=== PATIENT | female | born 1990 | race American Indian/Alaskan Native ===

== ENCOUNTER 2016-05-20 17:50 | Emergency (ER) | payer SELFPAY | END 2016-05-20 21:06 | disposition left against medical advice (07) | LOC: ED 17:50 | DX: R07.9 Chest pain, unspecified (principal); Z53.21 Procedure and treatment not carried out due to patient leaving prior to being seen by health care provider ==

== ENCOUNTER 2016-05-24 02:07 | Emergency (ER) | payer OTHER ==
[2016-05-24 02:32] VITALS: BP 125/80
[2016-05-24 03:04] LABS: Basophils % (Auto) 0.3 % (0.0-1.8); Eosinophils % (Auto) 2.2 % (0.0-4.3); Hematocrit 30.2 % (30.3-42.9); Hemoglobin 9.6 gm/dl (10.1-14.3); Mean Corpuscular HGB Conc 32 % (30-34); Mean Corpuscular Volume 79 fl (79-97); Platelet Count 247 K/mm3 (140-440); Red Blood Count 3.83 M/mm3 (3.65-5.03); Red Cell Distribution Width 14.8 % (13.2-15.2); White Blood Count 6.8 K/mm3 (4.5-11.0)
[2016-05-24 03:10] LABS: Mean Corpuscular Hemoglobin 25 pg (28-32)
[2016-05-24 03:28] LABS: Blood Urea Nitrogen 11 mg/dL (7-17); Carbon Dioxide 25 mmol/L (22-30); Chloride 102.6 mmol/L (98-107); Glucose 98 mg/dL (65-100); Potassium 3.5 mmol/L (3.6-5.0); Sodium 138 mmol/L (137-145)
[2016-05-24 04:00] LABS: Anion Gap 14 mmol/L
--- NOTE | 2016-05-28 15:29 | ED Elopement Review ---
ED Pt Elopement review - Results review Lab results: Laboratory Tests 05/24/16 05/24/16 02:54 02:54 WBC 6.8 RBC 3.83 Hgb 9.6 L Hct 30.2 L MCV 79 MCH 25 L MCHC 32 RDW 14.8 Plt Count 247 Lymph % (Auto) 30.6 Cotton % (Auto) 7.3 Eos % (Auto) 2.2 Baso % (Auto) 0.3 Lymph # 2.1 Cotton # 0.5 Eos # 0.2 Baso # 0.0 Seg Neutrophils % 59.6 Seg Neutrophils # 4.0 Sodium 138 Potassium 3.5 L Chloride 102.6 Carbon Dioxide 25 Anion Gap 14 BUN 11 Creatinine 0.5 L Estimated GFR > 60 BUN/Creatinine Ratio 22.00 Glucose 98 Calcium 9.0 Troponin T < 0.010 - Call Back decision Pt Call Back Decision: No action required
== END 2016-05-24 09:20 | disposition left against medical advice (07) ==
LOC: ED 02:07
DX: R07.89 Other chest pain (principal); Z53.21 Procedure and treatment not carried out due to patient leaving prior to being seen by health care provider
CPT/HCPCS: 36415; 80048; 84484; 85025; 93005; 93010

== ENCOUNTER 2016-06-08 02:55 | Emergency (ER) | payer SELFPAY ==
[2016-06-08 03:09] VITALS: BP 110/68
[2016-06-08 04:20] LABS: Basophils % (Auto) 0.3 % (0.0-1.8); Eosinophils % (Auto) 1.3 % (0.0-4.3); Hematocrit 31.9 % (30.3-42.9); Mean Corpuscular HGB Conc 31 % (30-34); Mean Corpuscular Volume 80 fl (79-97); Platelet Count 222 K/mm3 (140-440); Red Blood Count 4.01 M/mm3 (3.65-5.03); Red Cell Distribution Width 16.3 % (13.2-15.2); White Blood Count 7.3 K/mm3 (4.5-11.0)
[2016-06-08 04:26] LABS: Anion Gap 19 mmol/L; Blood Urea Nitrogen 14 mg/dL (7-17); Calcium 8.8 mg/dL (8.4-10.2); Carbon Dioxide 19 mmol/L (22-30); Chloride 102.3 mmol/L (98-107); Glucose 102 mg/dL (65-100); Mean Corpuscular Hemoglobin 25 pg (28-32); Sodium 136 mmol/L (137-145)
--- NOTE | 2016-06-09 21:41 | ED Elopement Review ---
ED Pt Elopement review - Results review Lab results: Laboratory Tests 06/08/16 06/08/16 03:51 03:51 WBC 7.3 RBC 4.01 Hgb 10.0 L Hct 31.9 MCV 80 MCH 25 L MCHC 31 RDW 16.3 H Plt Count 222 Lymph % (Auto) 40.6 H Alfalfa % (Auto) 5.7 Eos % (Auto) 1.3 Baso % (Auto) 0.3 Lymph # 3.0 Alfalfa # 0.4 Eos # 0.1 Baso # 0.0 Seg Neutrophils % 52.1 Seg Neutrophils # 3.8 Sodium 136 L Potassium 4.0 Chloride 102.3 Carbon Dioxide 19 L Anion Gap 19 BUN 14 Creatinine 0.5 L Estimated GFR > 60 BUN/Creatinine Ratio 28.00 Glucose 102 H Calcium 8.8 Troponin T < 0.010 - Call Back decision Pt Call Back Decision: No action required
== END 2016-06-08 04:00 | disposition left against medical advice (07) ==
LOC: ED 02:55
DX: R07.89 Other chest pain (principal); Z53.21 Procedure and treatment not carried out due to patient leaving prior to being seen by health care provider
CPT/HCPCS: 36415; 80048; 84484; 85025; 93005; 93010

== ENCOUNTER 2016-10-24 13:05 | Outpatient (CLI) | payer OTHER ==
[2016-10-24] MEDS ORDERED: LACTATED RINGERS 500 ML IV ONE (13:48)
[2016-10-24 14:18] VITALS: BP 118/60
[2016-10-24 14:33] LABS: Bilirubin,Urine NEG (Negative); Blood,Urine NEG (Negative); Ketones,Urine NEG (Negative); Leukocyte Esterase,Urine NEG (Negative); Mucus,Urine FEW /HPF; Nitrite,Urine NEG (Negative); Protein,Urine <15 mg/dL mg/dL (Negative); Urobilinogen,Urine < 2.0 mg/dL (<2.0)
== END 2016-10-24 16:15 | disposition home or self-care (01) ==
LOC: TRG 13:05
PROVIDERS: ATTEND Obstetrics & Gynecology
DX: O47.02 False labor before 37 completed weeks of gestation, second trimester (principal); Z3A.23 23 weeks gestation of pregnancy
CPT/HCPCS: 59025; 81001

== ENCOUNTER 2017-03-12 23:44 | Emergency (ER) | payer SELFPAY ==
[2017-03-12 23:57] VITALS: BP 129/90
[2017-03-13 00:53] LABS: Basophils % (Auto) 0.3 % (0.0-1.8); Eosinophils % (Auto) 2.5 % (0.0-4.3); Hemoglobin 9.4 gm/dl (10.1-14.3); Mean Corpuscular HGB Conc 31 % (30-34); Mean Corpuscular Hemoglobin 25 pg (28-32); Mean Corpuscular Volume 81 fl (79-97); Platelet Count 248 K/mm3 (140-440); Red Blood Count 3.72 M/mm3 (3.65-5.03); Red Cell Distribution Width 18.1 % (13.2-15.2); White Blood Count 4.6 K/mm3 (4.5-11.0)
[2017-03-13 01:01] LABS: Anion Gap 14 mmol/L; BUN/Creatinine Ratio 17; Blood Urea Nitrogen 10 mg/dL (7-17); Calcium 8.8 mg/dL (8.4-10.2); Carbon Dioxide 26 mmol/L (22-30); Chloride 104.4 mmol/L (98-107); Glucose 102 mg/dL (65-100); Potassium 4.2 mmol/L (3.6-5.0); Sodium 140 mmol/L (137-145)
[2017-03-13 01:05] LABS: Bilirubin,Urine NEG (Negative); Blood,Urine MOD (Negative); Ketones,Urine NEG (Negative); Leukocyte Esterase,Urine MOD (Negative); Nitrite,Urine NEG (Negative); Protein,Urine <15 mg/dL mg/dL (Negative); Urobilinogen,Urine < 2.0 mg/dL (<2.0)
== END 2017-03-13 03:29 | disposition left against medical advice (07) ==
LOC: ED 03-13 00:49
DX: R07.9 Chest pain, unspecified (principal); Z53.21 Procedure and treatment not carried out due to patient leaving prior to being seen by health care provider
CPT/HCPCS: 36415; 80048; 81001; 84484; 84703; 85025; 93005; 93010

== ENCOUNTER 2017-05-13 10:58 | Emergency (ER) | payer SELFPAY ==
[2017-05-13 11:52] VITALS: BP 110/72
[2017-05-13 12:37] LABS: BUN/Creatinine Ratio 20; Blood Urea Nitrogen 10 mg/dL (7-17); Calcium 8.9 mg/dL (8.4-10.2); Hemolysis Index 1
[2017-05-13 12:42] LABS: Basophils % (Auto) 0.3 % (0.0-1.8); Eosinophils # (Auto) 0.1 K/mm3 (0.0-0.4); Eosinophils % (Auto) 1.2 % (0.0-4.3); Hematocrit 33.8 % (30.3-42.9); Hemoglobin 10.3 gm/dl (10.1-14.3); Lymphocytes # (Auto) 2.3 K/mm3 (1.2-5.4); Lymphocytes % (Auto) 44.7 % (13.4-35.0); Mean Corpuscular HGB Conc 31 % (30-34); Mean Corpuscular Hemoglobin 24 pg (28-32); Mean Corpuscular Volume 77 fl (79-97); Monocytes # (Auto) 0.4 K/mm3 (0.0-0.8); Monocytes % (Auto) 7.1 % (0.0-7.3); Platelet Count 265 K/mm3 (140-440); Red Cell Distribution Width 17.4 % (13.2-15.2)
--- NOTE | 2017-05-13 13:06 | XRay Report ---
ROUTINE CHEST, TWO VIEWS: HISTORY: Short of breath. The trachea, heart, mediastinal contour, lung snowden and bony thorax are unremarkable. IMPRESSION: Unremarkable chest x-ray.
== END 2017-05-13 14:26 | disposition left against medical advice (07) ==
LOC: ED 10:58
DX: R07.9 Chest pain, unspecified (principal); R06.02 Shortness of breath; Z53.21 Procedure and treatment not carried out due to patient leaving prior to being seen by health care provider
CPT/HCPCS: 36415; 71046; 80048; 84484; 85025; 93005; 93010

== ENCOUNTER 2017-07-29 11:28 | Emergency (ER) | payer SELFPAY ==
[2017-07-29 12:01] VITALS: BP 123/71
[2017-07-29] MEDS ORDERED: ASPIRIN PO ONE (12:12)
[2017-07-29 12:47] LABS: Basophils % (Auto) 0.5 % (0.0-1.8); Eosinophils # (Auto) 0.1 K/mm3 (0.0-0.4); Eosinophils % (Auto) 1.2 % (0.0-4.3); Hematocrit 32.2 % (30.3-42.9); Hemoglobin 10.4 gm/dl (10.1-14.3); Lymphocytes # (Auto) 2.2 K/mm3 (1.2-5.4); Lymphocytes % (Auto) 43.4 % (13.4-35.0); Mean Corpuscular HGB Conc 32 % (30-34); Mean Corpuscular Hemoglobin 25 pg (28-32); Mean Corpuscular Volume 76 fl (79-97); Monocytes # (Auto) 0.4 K/mm3 (0.0-0.8); Monocytes % (Auto) 7.6 % (0.0-7.3); Platelet Count 239 K/mm3 (140-440); Red Blood Count 4.22 M/mm3 (3.65-5.03); Red Cell Distribution Width 17.9 % (13.2-15.2)
[2017-07-29 12:56] LABS: BUN/Creatinine Ratio 22; Blood Urea Nitrogen 11 mg/dL (7-17); Calcium 8.4 mg/dL (8.4-10.2); Hemolysis Index 30
== END 2017-07-29 17:00 | disposition left against medical advice (07) ==
LOC: ED 11:28
DX: R07.9 Chest pain, unspecified (principal); Z53.21 Procedure and treatment not carried out due to patient leaving prior to being seen by health care provider
CPT/HCPCS: 36415; 80048; 84484; 85025; 93005; 93010

== ENCOUNTER 2018-06-13 19:20 | Emergency (ER) | payer MEDICAID, OTHER ==
--- NOTE | 2018-06-13 19:51 | Emergency Department Report ---
Blank Doc - Documentation Documentation: This is a 27-year-old female that presents with chest pain with headache. Den ies any SOB. This initial assessment diagnostic orders/clinical plan/treatment(s) is/are subject to change based on patient's health status, clinical progression and re- assessment by fellow clinical providers in the ED. Further treatment and workup at subsequent clinical providers discretion. Patient/guardians urged not to elope from ED s their condition may be serious if not clinically assessed and managed. Initial orders include: 1-Patient sent to MAIN ED for further evaluation and treatment 2- Labs 3- UA 4- EKG 5- CXR
[2018-06-13 19:55] VITALS: BP 124/71
[2018-06-13 20:14] LABS: Basophils % (Auto) 0.2 % (0.0-1.8); Eosinophils # (Auto) 0.1 K/mm3 (0.0-0.4); Eosinophils % (Auto) 1.3 % (0.0-4.3); Hematocrit 32.8 % (30.3-42.9); Hemoglobin 10.8 gm/dl (10.1-14.3); Lymphocytes % (Auto) 48.5 % (13.4-35.0); Mean Corpuscular HGB Conc 33 % (30-34); Mean Corpuscular Volume 83 fl (79-97); Monocytes # (Auto) 0.2 K/mm3 (0.0-0.8); Monocytes % (Auto) 5.6 % (0.0-7.3); Platelet Count 198 K/mm3 (140-440); Red Blood Count 3.94 M/mm3 (3.65-5.03); Red Cell Distribution Width 16.3 % (13.2-15.2)
[2018-06-13 20:24] LABS: INR 1.02 (0.87-1.13)
[2018-06-13 20:25] LABS: Partial Thromboplastin Time 32.9 Sec. (24.2-36.6)
[2018-06-13 20:38] LABS: Alanine Aminotransferase 10 units/L (7-56); Albumin 4.2 g/dL (3.9-5); BUN/Creatinine Ratio 14; Blood Urea Nitrogen 7 mg/dL (7-17); Calcium 8.8 mg/dL (8.4-10.2); Hemolysis Index 0
== END 2018-06-13 21:43 | disposition left against medical advice (07) ==
LOC: ED 19:20
DX: R07.89 Other chest pain (principal); Z53.21 Procedure and treatment not carried out due to patient leaving prior to being seen by health care provider
CPT/HCPCS: 36415; 80053; 84484; 84703; 85025; 85610; 85730; 93005; 93010

== ENCOUNTER 2018-10-02 23:25 | Emergency (ER) | payer MEDICAID, OTHER ==
[2018-10-02 23:37] VITALS: BP 137/75
[2018-10-02] MEDS ORDERED: ASPIRIN PO ONE (23:38)
[2018-10-03 00:24] LABS: Basophils % (Auto) 0.2 % (0.0-1.8); Eosinophils # (Auto) 0.1 K/mm3 (0.0-0.4); Eosinophils % (Auto) 1.4 % (0.0-4.3); Hematocrit 31.5 % (30.3-42.9); Hemoglobin 10.5 gm/dl (10.1-14.3); Lymphocytes # (Auto) 2.4 K/mm3 (1.2-5.4); Mean Corpuscular HGB Conc 33 % (30-34); Mean Corpuscular Volume 85 fl (79-97); Monocytes # (Auto) 0.3 K/mm3 (0.0-0.8); Monocytes % (Auto) 6.1 % (0.0-7.3); Platelet Count 188 K/mm3 (140-440); Red Blood Count 3.72 M/mm3 (3.65-5.03); Red Cell Distribution Width 15.6 % (13.2-15.2)
[2018-10-03 00:43] LABS: BUN/Creatinine Ratio 20; Blood Urea Nitrogen 12 mg/dL (7-17); Calcium 9.4 mg/dL (8.4-10.2); Hemolysis Index 14
--- NOTE | 2018-10-03 02:06 | XRay Report ---
PROCEDURE: Chest. TECHNIQUE: Chest radiograph single view. HISTORY: Chest pain. COMPARISONS: Chest 05/13/2017. Dictation not available. FINDINGS: The heart and mediastinum appear normal. The lungs are clear and well expanded. There are no pleural effusions. The soft tissues and regional skeleton are unremarkable. IMPRESSION: Normal study. This document is electronically signed by Arron Rodas MD., October 03 2018 02:04:33 AM ET
--- NOTE | 2018-10-13 08:48 | Emergency Department Report ---
Blank Doc - Documentation Documentation: Patient left without being seen This note has been generated by me, Dr. Rowdy Davis III, MD, the Rules Examiner for the emergency department. I have not seen this patient personally.
== END 2018-10-03 02:00 | disposition left against medical advice (07) ==
LOC: ED 23:25
DX: R07.89 Other chest pain (principal); Z53.21 Procedure and treatment not carried out due to patient leaving prior to being seen by health care provider
CPT/HCPCS: 36415; 71045; 80048; 84484; 84703; 85025; 93005; 93010

== ENCOUNTER 2019-03-23 01:01 | Emergency (ER) | payer OTHER ==
[2019-03-23] MEDS ORDERED: IBUPROFEN 600 MG TAB PO ONE (04:14)
[2019-03-23] MEDS ORDERED: TETANUS,DIPH,PERTUSS(ACELL) VACCINE 0.5 ML SYRINGE IM ONE (04:14)
[2019-03-23] MEDS ORDERED: LIDOCAINE-MPF (1%) 10 MG/1 ML VIAL 5 ML INFILTRATI ONE (04:14)
[2019-03-23] MEDS ORDERED: cephALEXin 500 MG CAP PO ONE (07:29)
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
[2019-03-23 07:44] VITALS: BP 136/76
== END 2019-03-23 07:42 | disposition home or self-care (01) ==
LOC: ED 01:01
DX: S01.511A Laceration without foreign body of lip, initial encounter (principal); I10 Essential (primary) hypertension; Z98.51 Tubal ligation status; Z79.1 Long term (current) use of non-steroidal anti-inflammatories (NSAID); Z79.2 Long term (current) use of antibiotics; Z79.899 Other long term (current) drug therapy; Y04.8XXA Assault by other bodily force, initial encounter; Y93.89 Activity, other specified; Y92.89 Other specified places as the place of occurrence of the external cause; Y99.8 Other external cause status
CPT/HCPCS: 90471; 90715

== ENCOUNTER 2020-12-01 22:17 | Emergency (ER) | payer OTHER | END 2020-12-01 22:30 | disposition left against medical advice (07) | LOC: ED 22:17 ==

== ENCOUNTER 2020-12-20 06:11 | Emergency (ER) | payer OTHER ==
[2020-12-20 06:36] VITALS: BP 113/70
== END 2020-12-20 10:17 | disposition left against medical advice (07) ==
LOC: ED 06:11
DX: J02.9 Acute pharyngitis, unspecified (principal); Z53.21 Procedure and treatment not carried out due to patient leaving prior to being seen by health care provider

== ENCOUNTER 2020-12-20 12:49 | Emergency (ER) | payer OTHER ==
[2020-12-20 13:16] VITALS: BP 118/69
--- NOTE | 2020-12-20 13:21 | Emergency Department Report ---
ED Chest Pain HPI - General Chief Complaint: Chest Pain Stated Complaint: CP/SOB PUI?: No Time Seen by Provider: 12/20/20 13:18 Source: patient Mode of arrival: Ambulatory Limitations: No Limitations - History of Present Illness Initial Comments: Patient presents with substernal chest pain that started 30 minutes prior to arrival. She was seen here earlier today for sore throat. She decided not to wait and see a physician and she eloped. After being at home and eating, she noticed the onset of substernal chest pain. It is described as sharp and aching. It does not radiate or migrate. She states that when she was lying down the pain was worse. She has had pain like this before and was told that it was "fluid." There is no history of recent travel or trauma. She has had no cough or congestion. She states that her sore throat is still there but it is not severe. She has had no known exposure to coronavirus. Patient has no palpitations or lightheadedness. There is no unilateral leg swelling or edema. She has no leg pain. She has no recent travel or trauma. Patient did not take anything prior to arrival for this pain. - Related Data Previous Rx's Medication Instructions Recorded Last Taken Type Amoxicillin [Amoxicillin TAB] 875 mg PO BID #20 tablet 08/12/15 Unknown Rx Ibuprofen [Motrin 800 MG tab] 800 mg PO Q8HR PRN #20 tablet 09/28/15 Unknown Rx Azithromycin [Zithromax] 250 mg PO DAILY #6 tablet 03/23/16 Unknown Rx Ibuprofen [Motrin] 800 mg PO Q8HR PRN #15 tablet 03/23/16 Unknown Rx Nitrofurantoin Monohyd/M-Cryst 100 mg PO BID #14 capsule 02/23/17 Unknown Rx [Macrobid 100 mg Capsule] Ibuprofen [Motrin] 600 mg PO Q8H PRN #24 tablet 03/23/19 Unknown Rx cephALEXin [Keflex] 500 mg PO Q8HR #30 cap 03/23/19 Unknown Rx Lidocaine Viscous 2% 10 ml MM DAILY PRN #120 udc 12/20/20 Unknown Rx Allergies Allergy/AdvReac Type Severity Reaction Status Date / Time No Known Allergies Allergy Verified 09/28/15 05:18 Heart Score - HEART Score History: Slightly suspicious EKG: Normal Age: < 45 Risk factors: No known risk factors Troponin: < normal limit HEART Score: 0 - EKG Read Time Time EKG Completed: 11:00 EKG Read Time: 14:27 ED Review of Systems ROS: Stated complaint: CP/SOB Other details as noted in HPI Comment: All other systems reviewed and negative Constitutional: denies: fever Eyes: denies: eye pain ENT: as per HPI, throat pain. denies: ear pain Respiratory: denies: cough Cardiovascular: as per HPI. denies: palpitations Endocrine: denies: increased thirst Gastrointestinal: denies: abdominal pain, vomiting Genitourinary: denies: dysuria Musculoskeletal: denies: back pain Skin: denies: rash Neurological: denies: headache Hematological/Lymphatic: denies: easy bruising ED Past Medical Hx - Past Medical History Previous Medical History?: Yes Hx Hypertension: Yes (with eclampsia) Hx Diabetes: No Hx Deep Vein Thrombosis: No Hx Renal Disease: No Hx Sickle Cell Disease: No Hx Seizures: No Hx Asthma: No Hx HIV: No Additional medical history: heart murmur. eclampsia. "fld around heart". - Surgical History Past Surgical History?: Yes Additional Surgical History: TUBAL LIGATION - Social History Smoking Status: Never Smoker Substance Use Type: Alcohol - Medications Home Medications: Home Medications Medication Instructions Recorded Confirmed Last Taken Type Amoxicillin [Amoxicillin TAB] 875 mg PO BID #20 tablet 08/12/15 Unknown Rx Ibuprofen [Motrin 800 MG tab] 800 mg PO Q8HR PRN #20 tablet 09/28/15 Unknown Rx Azithromycin [Zithromax] 250 mg PO DAILY #6 tablet 03/23/16 Unknown Rx Ibuprofen [Motrin] 800 mg PO Q8HR PRN #15 tablet 03/23/16 Unknown Rx Nitrofurantoin Monohyd/M-Cryst 100 mg PO BID #14 capsule 02/23/17 Unknown Rx [Macrobid 100 mg Capsule] Ibuprofen [Motrin] 600 mg PO Q8H PRN #24 tablet 03/23/19 Unknown Rx cephALEXin [Keflex] 500 mg PO Q8HR #30 cap 03/23/19 Unknown Rx Lidocaine Viscous 2% 10 ml MM DAILY PRN #120 udc 12/20/20 Unknown Rx ED Physical Exam - General Limitations: No Limitations General appearance: alert, in no apparent distress - Head Head exam: Present: atraumatic, normocephalic - Eye Eye exam: Present: normal appearance, EOMI. Absent: scleral icterus - ENT ENT exam: Present: normal orophraynx - Neck Neck exam: Present: normal inspection, full ROM. Absent: meningismus - Respiratory Respiratory exam: Present: normal lung sounds bilaterally, respiratory distress. Absent: wheezes - Cardiovascular Cardiovascular Exam: Present: regular rate, normal rhythm - GI/Abdominal GI/Abdominal exam: Present: soft. Absent: tenderness - Extremities Exam Extremities exam: Absent: tenderness, pedal edema - Back Exam Back exam: Absent: CVA tenderness (R), CVA tenderness (L) - Neurological Exam Neurological exam: Present: alert, altered, normal gait. Absent: motor sensory deficit - Psychiatric Psychiatric exam: Present: normal affect, normal mood - Skin Skin exam: Present: warm, dry ED Course Vital Signs 12/20/20 13:13 Temperature 99.2 F Pulse Rate 102 H Respiratory 16 Rate Blood Pressure 118/69 O2 Sat by Pulse 98 Oximetry - Reevaluation(s) Reevaluation #1: 12/20/20 13:20 EKG and chest x-ray were ordered. KATHARINE score - Katharine Score Age > 65: (0) No Aspirin use within the Past 7 Days: (0) No 3 or more CAD Risk Factors: (0) No 2 or more Angina events in past 24 hrs: (0) No Known CAD with more than 50% Stenosis: (0) No Elevated Cardiac Markers: (0) No ST Deviation Greater than 0.5mm: (0) No KATHARINE Score: 0 ED Medical Decision Making - EKG Data -: EKG Interpreted by Me EKG shows normal: sinus rhythm, axis, intervals, QRS complexes, ST-T waves Rate: normal - EKG Data When compared to previous EKG there are: previous EKG unavailable Interpretation: no acute changes, normal EKG - Radiology Data Radiology results: image reviewed - Medical Decision Making Patient presented secondary to chest pain that did not seem to be cardiac in nature. She was young without risk factor for coronary artery disease. This was worse with supine position and after eating. This could certainly be related to GI etiologies or GERD. She certainly does not have symptoms suggestive of hepatitis or pancreatitis. There is no significant abdominal tenderness. She does not have EKG changes suggestive of ACS. She does not have coronavirus symptoms that would be concerning for myocarditis. She does not have a widened mediastinum or pulse absent to suggest aortic dissection. Radiographically, there was no pneumonia or pneumothorax. She was treated symptomatically and referred for outpatient evaluation and follow-up. Critical Care Time: No Critical care attestation.: If time is entered above; I have spent that time in minutes in the direct care of this critically ill patient, excluding procedure time. ED Disposition Clinical Impression: Substernal chest pain Pharyngitis Qualifiers: Pharyngitis/tonsillitis etiology: unspecified etiology Qualified Code(s): J02.9 - Acute pharyngitis, unspecified Disposition: HOME / SELF CARE / HOMELESS Is pt being admited?: No Does the pt Need Aspirin: No Condition: Stable Instructions: Nonspecific Chest Pain, Adult, Sore Throat, [id number], Viral Respiratory Infection, [id number] Additional Instructions: Use salt water gargles. Drink plenty water. Use Tylenol for pain and fever. Follow-up with your regular physician for recheck and further management. Prescriptions: Lidocaine Viscous 2% 10 ml MM DAILY PRN #120 [facility] [place] PRN Reason: Pain , Severe (7-10)
--- NOTE | 2020-12-20 13:41 | XRay Report ---
CHEST 2 VIEWS INDICATION / CLINICAL INFORMATION: CP. Chest pain and shortness of breath. COMPARISON: 10/03/18 FINDINGS: SUPPORT DEVICES: None. HEART / MEDIASTINUM: No significant abnormality. LUNGS / PLEURA: No significant pulmonary or pleural abnormality. No pneumothorax. ADDITIONAL FINDINGS: No significant additional findings. IMPRESSION: 1. No acute findings. No change. Signer Name: Anatoliy Mora MD Signed: 12/20/2020 1:36 PM Workstation Name: [id number]
--- NOTE | 2020-12-23 14:08 | Electrocardiograph Report ---
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
== END 2020-12-20 15:49 | disposition home or self-care (01) ==
LOC: ED 12:49
DX: R07.2 Precordial pain (principal); J02.9 Acute pharyngitis, unspecified; I10 Essential (primary) hypertension; Z98.51 Tubal ligation status; Z79.899 Other long term (current) drug therapy
CPT/HCPCS: 71046; 93005; 99283

== ENCOUNTER 2020-12-27 05:24 | Emergency (ER) | payer OTHER ==
--- NOTE | 2020-12-27 06:06 | Event Note ---
ED Screening Note Date of service: 12/27/20 Time: 06:04 ED Screening Note: 30-year-old female with a history of palpitations presents for sign x2 days. States heart racing intermittent weakness, there is no fever, chills there is no coughing. Numbness tingling no low back pain. Patient denies suspicious contacts or travel. 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 This initial assessment/diagnostic orders/clinical plan/treatment(s) is/are subject to change based on patients health status, clinical progression and re- assessment by fellow clinical providers in the ED. Further treatment and workup at subsequent clinical providers discretion. Patient/guardian urged not to elope from the ED as their condition may be serious if not clinically assessed and managed. Initial orders include: ekg, hcg, ua, cxr, cbc, cmp
[2020-12-27 06:32] LABS: Basophils % (Auto) 0.5 % (0.0-1.8); Eosinophils % (Auto) 0.9 % (0.0-4.3); Hematocrit 31.9 % (30.3-42.9); Hemoglobin 10.5 gm/dl (10.1-14.3); Lymphocytes # (Auto) 1.5 K/mm3 (1.2-5.4); Lymphocytes % (Auto) 34.7 % (13.4-35.0); Mean Corpuscular HGB Conc 33 % (30-34); Mean Corpuscular Volume 85 fl (79-97); Monocytes # (Auto) 0.3 K/mm3 (0.0-0.8); Monocytes % (Auto) 6.3 % (0.0-7.3); Platelet Count 208 K/mm3 (140-440); Red Blood Count 3.76 M/mm3 (3.65-5.03); Red Cell Distribution Width 14.8 % (13.2-15.2)
[2020-12-27 06:45] LABS: Alanine Aminotransferase 13 units/L (7-56); Albumin 4.2 g/dL (3.9-5); BUN/Creatinine Ratio 12; Blood Urea Nitrogen 7 mg/dL (7-17); Calcium 8.9 mg/dL (8.4-10.2); Hemolysis Index 2
--- NOTE | 2020-12-27 07:28 | XRay Report ---
CHEST PA AND LATERAL VIEWS INDICATION: palpitations. COMPARISON: 12/20/2020 FINDINGS: Support devices: None. Heart: Within normal limits. Lungs/Pleura: No acute pulmonary or pleural findings. IMPRESSION: 1. No acute findings. Signer Name: Roni Wise MD Signed: 12/27/2020 7:24 AM Workstation Name: [id number]
--- NOTE | 2020-12-27 09:19 | Emergency Department Report ---
ED Chest Pain HPI - General Chief Complaint: Chest Pain Stated Complaint: CHEST PAIN Time Seen by Provider: 12/27/20 07:34 Source: patient Mode of arrival: Ambulatory Limitations: No Limitations - History of Present Illness Initial Comments: 30-year-old -Guyanese female patient presents with complaints of left- sided chest pain x1 week. Patient states the pain is intermittent and occurs when she lies down only. The pain lasts about 1 hour each night. She describes the pain as pressure and rates it as a 6/10 in severity. Patient states in A pril, she had similar pain and was seen by general repair mechanic and had an echocardiogram performed. She reports the echo showed a small amount of fluid around the heart. She has not followed up with a general repair mechanic since, however states she does have an appointment with a general repair mechanic on 01/11/2021. Patient denies any cough, shortness of breath, fever/chills/sweats, or other past medical history. She does report 1 week ago she also had a sore throat that resolved after a few days without treatment. Patient denies any family history of heart disease. She also denies any leg pain/swelling, hormone use, recent long travel/surgeries, hemoptysis, or history of DVT/PE/cancer. - Related Data Previous Rx's Medication Instructions Recorded Last Taken Type Amoxicillin [Amoxicillin TAB] 875 mg PO BID #20 tablet 08/12/15 Unknown Rx Ibuprofen [Motrin 800 MG tab] 800 mg PO Q8HR PRN #20 tablet 09/28/15 Unknown Rx Azithromycin [Zithromax] 250 mg PO DAILY #6 tablet 03/23/16 Unknown Rx Ibuprofen [Motrin] 800 mg PO Q8HR PRN #15 tablet 03/23/16 Unknown Rx Nitrofurantoin Monohyd/M-Cryst 100 mg PO BID #14 capsule 02/23/17 Unknown Rx [Macrobid 100 mg Capsule] Ibuprofen [Motrin] 600 mg PO Q8H PRN #24 tablet 03/23/19 Unknown Rx cephALEXin [Keflex] 500 mg PO Q8HR #30 cap 03/23/19 03/23/19 Rx Lidocaine Viscous 2% 10 ml MM DAILY PRN #120 udc 12/20/20 Unknown Rx Allergies Allergy/AdvReac Type Severity Reaction Status Date / Time No Known Allergies Allergy Verified 12/27/20 10:13 Heart Score - HEART Score History: Slightly suspicious EKG: Normal Age: < 45 Risk factors: No known risk factors Troponin: < normal limit HEART Score: 0 - EKG Read Time Time EKG Completed: 05:57 EKG Read Time: 06:00 ED Review of Systems ROS: Stated complaint: CHEST PAIN Other details as noted in HPI Constitutional: denies: chills, fever, malaise, weakness ENT: as per HPI Respiratory: denies: cough, orthopnea, shortness of breath Cardiovascular: chest pain. denies: palpitations, edema, syncope Endocrine: denies: excessive sweating Gastrointestinal: denies: abdominal pain, nausea, vomiting Skin: denies: rash, lesions, change in color Neurological: denies: headache, numbness, paresthesias Hematological/Lymphatic: denies: swollen glands ED Past Medical Hx - Past Medical History Previous Medical History?: Yes Hx Hypertension: Yes (with eclampsia) Hx Diabetes: No Hx Deep Vein Thrombosis: No Hx Renal Disease: No Hx Sickle Cell Disease: No Hx Seizures: No Hx Asthma: No Hx HIV: No Additional medical history: heart murmur. eclampsia. "fld around heart". - Surgical History Past Surgical History?: Yes Additional Surgical History: TUBAL LIGATION - Social History Smoking Status: Never Smoker Substance Use Type: Alcohol - Medications Home Medications: Home Medications Medication Instructions Recorded Confirmed Last Taken Type Amoxicillin [Amoxicillin TAB] 875 mg PO BID #20 tablet 08/12/15 12/27/20 Unknown Rx Ibuprofen [Motrin 800 MG tab] 800 mg PO Q8HR PRN #20 tablet 09/28/15 12/27/20 Unknown Rx Azithromycin [Zithromax] 250 mg PO DAILY #6 tablet 03/23/16 12/27/20 Unknown Rx Ibuprofen [Motrin] 800 mg PO Q8HR PRN #15 tablet 03/23/16 12/27/20 Unknown Rx Nitrofurantoin Monohyd/M-Cryst 100 mg PO BID #14 capsule 02/23/17 12/27/20 Unknown Rx [Macrobid 100 mg Capsule] Ibuprofen [Motrin] 600 mg PO Q8H PRN #24 tablet 03/23/19 12/27/20 Unknown Rx cephALEXin [Keflex] 500 mg PO Q8HR #30 cap 03/23/19 12/27/20 03/23/19 Rx Lidocaine Viscous 2% 10 ml MM DAILY PRN #120 udc 12/20/20 12/27/20 Unknown Rx ED Physical Exam - General Limitations: No Limitations General appearance: alert, in no apparent distress - Head Head exam: Present: atraumatic, normocephalic - Eye Eye exam: Present: normal appearance. Absent: scleral icterus - Neck Neck exam: Present: normal inspection - Respiratory Respiratory exam: Present: normal lung sounds bilaterally. Absent: respiratory distress, chest wall tenderness - Cardiovascular Cardiovascular Exam: Present: regular rate, normal rhythm. Absent: systolic murmur, diastolic murmur, rubs, gallop - Extremities Exam Extremities exam: Absent: calf tenderness (No pain or swelling noted to legs bilaterally) - Neurological Exam Neurological exam: Present: alert, oriented X3 - Psychiatric Psychiatric exam: Present: normal affect, normal mood - Skin Skin exam: Present: warm, dry, intact, normal color. Absent: rash ED Course Vital Signs 12/27/20 12/27/20 05:48 10:07 Temperature 98.5 F 98.7 F Pulse Rate 80 74 Respiratory 18 12 Rate Blood Pressure 119/74 Blood Pressure 126/75 [Right] O2 Sat by Pulse 99 100 Oximetry KATHARINE score - Katharine Score Age > 65: (0) No Aspirin use within the Past 7 Days: (0) No 3 or more CAD Risk Factors: (0) No 2 or more Angina events in past 24 hrs: (0) No Known CAD with more than 50% Stenosis: (0) No Elevated Cardiac Markers: (0) No ST Deviation Greater than 0.5mm: (0) No KATHARINE Score: 0 ED Medical Decision Making - Lab Data Result diagrams: 12/27/20 06:05 12/27/20 06:05 Lab Results 12/27/20 12/27/20 12/27/20 Range/Units 06:05 06:05 06:05 WBC 4.4 L (4.5-11.0) K/mm3 RBC 3.76 (3.65-5.03) M/mm3 Hgb 10.5 (10.1-14.3) gm/dl Hct 31.9 (30.3-42.9) % MCV 85 (79-97) fl MCH 28 (28-32) pg MCHC 33 (30-34) % RDW 14.8 (13.2-15.2) % Plt Count 208 (140-440) K/mm3 Lymph % (Auto) 34.7 (13.4-35.0) % Mitchell % (Auto) 6.3 (0.0-7.3) % Eos % (Auto) 0.9 (0.0-4.3) % Baso % (Auto) 0.5 (0.0-1.8) % Lymph # (Auto) 1.5 (1.2-5.4) K/mm3 Mitchell # (Auto) 0.3 (0.0-0.8) K/mm3 Eos # (Auto) 0.0 (0.0-0.4) K/mm3 Baso # (Auto) 0.0 (0.0-0.1) K/mm3 Seg Neutrophils % 57.6 (40.0-70.0) % Seg Neutrophils # 2.6 (1.8-7.7) K/mm3 ESR (0-20) mm/Hr Sodium 138 (137-145) mmol/L Potassium 3.5 L (3.6-5.0) mmol/L Chloride 105.6 (98-107) mmol/L Carbon Dioxide 24 (22-30) mmol/L Anion Gap 12 mmol/L BUN 7 (7-17) mg/dL Creatinine 0.6 (0.6-1.2) mg/dL Estimated GFR > 60 ml/min BUN/Creatinine Ratio 12 % Glucose 99 (65-100) mg/dL Calcium 8.9 (8.4-10.2) mg/dL Total Bilirubin 0.40 (0.1-1.2) mg/dL AST 16 (5-40) units/L ALT 13 (7-56) units/L Alkaline Phosphatase 65 (35-129) units/L Troponin T < 0.010 (0.00-0.029) ng/mL Total Protein 7.2 (6.3-8.2) g/dL Albumin 4.2 (3.9-5) g/dL Albumin/Globulin Ratio 1.4 % HCG, Qual (Negative) 12/27/20 12/27/20 Range/Units 09:39 09:39 WBC (4.5-11.0) K/mm3 RBC (3.65-5.03) M/mm3 Hgb (10.1-14.3) gm/dl Hct (30.3-42.9) % MCV (79-97) fl MCH (28-32) pg MCHC (30-34) % RDW (13.2-15.2) % Plt Count (140-440) K/mm3 Lymph % (Auto) (13.4-35.0) % Mitchell % (Auto) (0.0-7.3) % Eos % (Auto) (0.0-4.3) % Baso % (Auto) (0.0-1.8) % Lymph # (Auto) (1.2-5.4) K/mm3 Mitchell # (Auto) (0.0-0.8) K/mm3 Eos # (Auto) (0.0-0.4) K/mm3 Baso # (Auto) (0.0-0.1) K/mm3 Seg Neutrophils % (40.0-70.0) % Seg Neutrophils # (1.8-7.7) K/mm3 ESR 1 (0-20) mm/Hr Sodium (137-145) mmol/L Potassium (3.6-5.0) mmol/L Chloride (98-107) mmol/L Carbon Dioxide (22-30) mmol/L Anion Gap mmol/L BUN (7-17) mg/dL Creatinine (0.6-1.2) mg/dL Estimated GFR ml/min BUN/Creatinine Ratio % Glucose (65-100) mg/dL Calcium (8.4-10.2) mg/dL Total Bilirubin (0.1-1.2) mg/dL AST (5-40) units/L ALT (7-56) units/L Alkaline Phosphatase (35-129) units/L Troponin T (0.00-0.029) ng/mL Total Protein (6.3-8.2) g/dL Albumin (3.9-5) g/dL Albumin/Globulin Ratio % HCG, Qual Negative (Negative) - EKG Data EKG shows normal: sinus rhythm Rate: normal - EKG Data Interpretation: normal EKG - Radiology Data Radiology results: report reviewed CHEST PA AND LATERAL VIEWS INDICATION: palpitations. COMPARISON: 12/20/2020 FINDINGS: Support devices: None. Heart: Within normal limits. Lungs/Pleura: No acute pulmonary or pleural findings. IMPRESSION: 1. No acute findings. - Medical Decision Making 30-year-old -Guyanese female patient presents with complaints of left- sided chest pain x1 week. Patient states the pain is intermittent and occurs when she lies down only. The pain lasts about 1 hour each night. She describes the pain as pressure and rates it as a 6/10 in severity. Patient states in Ap ril, she had similar pain and was seen by general repair mechanic and had an echocardiogram performed. She reports the echo showed a small amount of fluid around the heart. She has not followed up with a general repair mechanic since, however states she does have an appointment with a general repair mechanic on 01/11/2021. Patient denies any cough, shortness of breath, fever/chills/sweats, or other past medical history. She does report 1 week ago she also had a sore throat that resolved after a few days without treatment. Patient denies any family history of heart disease. She also denies any leg pain/swelling, hormone use, recent long travel/surgeries, hemoptysis, or history of DVT/PE/cancer. No significant abnormalities on chest x-ray. EKG is normal. CBC and CMP are normal. Troponin and ESR normal. Lung and heart exam are normal. Heart score = 0. PERC score = 0. Recommend patient follows up with her general repair mechanic within 3 days for further evaluation. Discussed signs and symptoms that should prompt immediate return to the emergency department in detail patient verbalized understanding. She is well-appearing, her vitals are normal, she is stable for discharge home. Critical care attestation.: If time is entered above; I have spent that time in minutes in the direct care of this critically ill patient, excluding procedure time. ED Disposition Clinical Impression: Other chest pain Disposition: 01 HOME / SELF CARE / HOMELESS Is pt being admited?: No Condition: Stable Instructions: Nonspecific Chest Pain, Adult, [id number] Additional Instructions: Please follow-up with your general repair mechanic within 3 days. Referrals: PRIMARY CARE, [Primary Care Provider] - 3-5 Days Forms: Work/School Release Form(ED)
[2020-12-27 10:12] VITALS: BP 119/74
--- NOTE | 2020-12-27 10:18 | Electrocardiograph Report ---
[facility] Test Date: 2020-12-27 Test Time: 05:57:14 Pat Name: VIANNEY YAÑEZ Department: Room: Gender: F Measurer Machine: [id number] : 1990 Requested By: KAREN VIERA Order Number: [id number] Reading MD: Rishabh Reed Measurements Intervals [place] Rate: 81 P: 22 MI: 160 QRS: 65 QRSD: 82 T: 57 QT: 359 QTc: 417 Interpretive Statements Sinus rhythm Compared to ECG 12/20/2020 13:25:42 No significant changes Electronically Signed On 12-27-2020 10:17:30 EDT by Rishabh Reed
== END 2020-12-27 12:11 | disposition home or self-care (01) ==
LOC: ED 05:24
DX: R07.9 Chest pain, unspecified (principal); R01.1 Cardiac murmur, unspecified; I50.9 Heart failure, unspecified; Z98.890 Other specified postprocedural states
CPT/HCPCS: 36415; 71046; 80053; 84484; 84703; 85025; 85652; 93005; 99283

== ENCOUNTER 2021-01-02 23:18 | Observation (INO) | payer OTHER ==
--- NOTE | 2021-01-03 01:38 | Emergency Department Report ---
<GODFREY ALEMAN - Last Filed: 01/03/21 03:58> ED General Adult HPI - General Chief complaint: Chest Pain Stated complaint: CHEST PAIN/PRESSURE WHEN LAYING Time Seen by Provider: 01/03/21 01:29 Source: patient Mode of arrival: Ambulatory Limitations: No Limitations - History of Present Illness Initial comments: 30-year-old female patient with history of pericardial effusion presents to the emergency department with complaints of chest pain for approximately 2 weeks. This is patient's third chest pain evaluation in the emergency department since onset of symptoms. Chest pain is constant and worse with lying supine, relieved with sitting upright, described as "pressure," nonradiating. Patient did not take any medications prior to arrival. Patient was previously diagnosed with a pericardial effusion but has not followed up with her protective signal repairer helper. She is scheduled to see her protective signal repairer helper later this month. No recent illnesses. No recent travel. Denies fever, chills, cough, shortness of breath, palpitations, syncope, lower extremity swelling. Denies all other complaints at this time. - Related Data Previous Rx's Medication Instructions Recorded Last Taken Type Amoxicillin [Amoxicillin TAB] 875 mg PO BID #20 tablet 08/12/15 Unknown Rx Ibuprofen [Motrin 800 MG tab] 800 mg PO Q8HR PRN #20 tablet 09/28/15 Unknown Rx Azithromycin [Zithromax] 250 mg PO DAILY #6 tablet 03/23/16 Unknown Rx Ibuprofen [Motrin] 800 mg PO Q8HR PRN #15 tablet 03/23/16 Unknown Rx Nitrofurantoin Monohyd/M-Cryst 100 mg PO BID #14 capsule 02/23/17 Unknown Rx [Macrobid 100 mg Capsule] Ibuprofen [Motrin] 600 mg PO Q8H PRN #24 tablet 03/23/19 Unknown Rx cephALEXin [Keflex] 500 mg PO Q8HR #30 cap 03/23/19 03/23/19 Rx Lidocaine Viscous 2% 10 ml MM DAILY PRN #120 udc 12/20/20 Unknown Rx Allergies Allergy/AdvReac Type Severity Reaction Status Date / Time No Known Allergies Allergy Verified 12/27/20 10:13 ED Review of Systems Other: GENERAL: Negative for fever, chills, weight change, anorexia, fatigue. ENT: Negative for ear pain, difficulty hearing, sore throat, nasal congestion, epistaxis. CARDIOVASCULAR: Positive for chest pain. PULMONARY: Negative for cough, dyspnea, wheezing, orthopnea, cyanosis. GASTROINTESTINAL: Negative for abdominal pain, nausea, vomiting, diarrhea, constipation. MUSCULOSKELETAL: Negative for joint pain, joint swelling, myalgias, back pain, neck pain. NEUROLOGICAL: Negative for headache, seizure, syncope, paresthesias, weakness. INTEGUMENTARY: Negative for erythema, rash, diaphoresis, laceration, ecchymosis. HEMATOLOGICAL: Negative for hemoptysis, hematemesis, hematochezia, hematuria. PSYCHIATRIC: Negative for hallucinations, suicidal ideation, homicidal ideation, anxiety, depression. ED Past Medical Hx - Past Medical History Previous Medical History?: Yes Hx Hypertension: Yes (with eclampsia) Hx Diabetes: No Hx Deep Vein Thrombosis: No Hx Renal Disease: No Hx Sickle Cell Disease: No Hx Seizures: No Hx Asthma: No Hx HIV: No Additional medical history: heart murmur. eclampsia. "fld around heart". - Surgical History Past Surgical History?: Yes Additional Surgical History: TUBAL LIGATION - Social History Smoking Status: Never Smoker Substance Use Type: Alcohol - Medications Home Medications: Home Medications Medication Instructions Recorded Confirmed Last Taken Type Amoxicillin [Amoxicillin TAB] 875 mg PO BID #20 tablet 08/12/15 12/27/20 Unknown Rx Ibuprofen [Motrin 800 MG tab] 800 mg PO Q8HR PRN #20 tablet 09/28/15 12/27/20 Unknown Rx Azithromycin [Zithromax] 250 mg PO DAILY #6 tablet 03/23/16 12/27/20 Unknown Rx Ibuprofen [Motrin] 800 mg PO Q8HR PRN #15 tablet 03/23/16 12/27/20 Unknown Rx Nitrofurantoin Monohyd/M-Cryst 100 mg PO BID #14 capsule 02/23/17 12/27/20 Unknown Rx [Macrobid 100 mg Capsule] Ibuprofen [Motrin] 600 mg PO Q8H PRN #24 tablet 03/23/19 12/27/20 Unknown Rx cephALEXin [Keflex] 500 mg PO Q8HR #30 cap 03/23/19 12/27/20 03/23/19 Rx Lidocaine Viscous 2% 10 ml MM DAILY PRN #120 udc 12/20/20 12/27/20 Unknown Rx ED Physical Exam - General Limitations: No Limitations - Other Other exam information: General: Awake and alert. No acute distress. Head: Atraumatic, normocephalic. Eyes: EOMI. Pupils are equal and round. Normal sclera and conjunctiva. ENT: Oral mucosa is moist. Normal pharyngeal exam. Neck: Supple. No lymphadenopathy. Pulmonary: No respiratory distress. Clear to auscultation bilaterally. Cardiac: Regular rate and rhythm. Pulses are palpable and equal bilaterally. No lower extremity cyanosis or edema. Skin: Warm and dry. No rashes. Abdomen: Soft, non-tender, non-protuberant. No guarding, rigidity, or rebound. Bowel sounds are normal. No organomegaly or masses noted. Back: Normal alignment. No CVA tenderness. Extremities: Symmetrical. Full range of motion intact. Neurological: Alert and oriented, appropriately interactive, no focal deficits. Psych: Cooperative. Appropriate mood and affect. Speech is evenly metered. Thoughts are logically construed. ED Medical Decision Making - Lab Data Result diagrams: 01/03/21 01:45 01/03/21 01:45 - Radiology Data [facility] [address] [place] [address] Cat Scan Report Signed Patient: VIANNEY YAÑEZ MR#: [id number] : 1990 Acct:[id number] Age/Sex: 30 / F ADM Date: 01/02/21 Loc: ED Attending Dr: Ordering Physician: KIKE MAGANA Date of Service: 01/03/21 Procedure(s): CT angio chest Accession Number(s): [id number] cc: KIKE MAGANA CTA CHEST WITH CONTRAST INDICATION / CLINICAL INFORMATION: Chest pain x 2 weeks, Hx of Pericardial Effusion. TECHNIQUE: Axial CT images were obtained through the chest after injection of IV contrast. 3 plane MIP and/or 3D reconstructions were produced. All CT scans at this location are performed using CT dose reduction for ALARA by means of automated exposure control. COMPARISON: None available. FINDINGS: The central pulmonary arteries are patent. There are areas of low density within the right lower lung pulmonary arteries, axial image 217. Some heterogeneous areas in the peripheral upper and lower pulmonary arteries bilaterally. Some motion artifact slightly limits examination. Heart is mildly enlarged. IMPRESSION: 1. The central pulmonary arteries are patent. There are areas of low attenuation within the segmental and peripheral pulmonary arteries. These findings could be related to the significant motion artifact throughout the examination however these areas could also represent segmental peripheral PTE's. CRITICAL RESULT: Time of Discovery (POWER PLANT MECHANIC/CDT): 230 Time of Communication (POWER PLANT MECHANIC/CDT): 230 Licensed Practitioner Receiving Report: Kobe Read-Back Performed: Yes. Signer Name: Norberto Westfall MD Signed: 01/03/2021 3:35 AM Workstation Name: [id number] Transcribed By: MEE Dictated By: GRAY WESTFALL MD Electronically Authenticated By: GRAY WESTFALL MD Signed Date/Time: 01/03/21334 DD/ 4 TD/TT: - Medical Decision Making Differential diagnosis including but not limited to: acute coronary syndrome, pericarditis, pericardial effusion/cardiac tamponade, myocarditis, pulmonary embolism, pleural effusion, pneumothorax, GERD, esophagitis, peptic ulcer disease On reevaluation, patient remains stable. No hypoxia, no respiratory distress. EKG without acute injury pattern. Labs including inflammatory markers within normal limits without clinical evidence to suggest pericarditis or myocarditis. CT angiogram of the chest was obtained in the absence of venous thromboembolism risk factors due to patient's frequent ED visits for the same chief complaint without evidence of prior PE work-up on review of prior medical records. Case discussed with Dr. Westfall, radiologist. CT angiogram shows patent central pulmonary arteries however there are multiple areas of low density within the right lower lobe pulmonary arteries as well as heterogenous areas in the peripheral upper and lower pulmonary arteries bilaterally, which may represent segmental peripheral PE's. However, significant motion artifact is a limiting factor in the reliability of this study. Mild cardiomegaly also present. No clinical evidence to suggest right heart strain or pulmonary infarction. Patient will be placed on a pvc monitor and started on Heparin until further confirmatory studies can be obtained. Given Heparin bolus 80 units per kg followed by Heparin drip 18 units/kg/hour. Case discussed with Dr. Barcenas, attending emergency physician, who personally evaluated the patient, agrees with plan of care, and discussed case with hospitalist, who agrees to admit. Critical Care Time: Yes Critical care time in (mins) excluding proc time.: 104 Critical Care Time: 104 minutes of critical care time was required for evaluation and management of this patient, excluding procedure time. ED Disposition Clinical Impression: Substernal chest pain, Multiple subsegmental pulmonary emboli without acute cor pulmonale Disposition: ADMITTED INPATIENT Is pt being admited?: Yes Does the pt Need Aspirin: No Condition: Critical <MICHOACANO BARCENAS III - Last Filed: 01/03/21 05:12> ED Review of Systems ROS: Stated complaint: CHEST PAIN/PRESSURE WHEN LAYING Other details as noted in HPI ED Course Vital Signs 01/03/21 00:21 Temperature 98.2 F Pulse Rate 76 Respiratory 16 Rate Blood Pressure 124/81 [Left] O2 Sat by Pulse 100 Oximetry - Reevaluation(s) Reevaluation #1: I reviewed the findings and management of this patient in real-time and I have personally seen and examined this patient and participated in the decision making for this patient with the midlevel. Patient is a 30-year-old female that presents emergency room for chest pain. Patient had a CTA done which was inconclusive but highly suggestive of a PE. The radiologist read as possible multiple subsegmental PEs. Patient will be started on a heparin protocol and a heparin drip. I examined the patient. Patient's lung sounds are clear to auscultation. Patient CV exam shows a normal S1-S2. Patient alert and oriented x4. I discussed all results with patient. I discussed plan of care with patient. Patient agrees with plan of care and admission. Patient to be admitted to the hospitalist service. EKG shows a normal sinus rhythm with a normal ST segment. QRS is within normal limits. Patient's heart rate is 71. No signs of LVH. Normal P QRS. Normal axis. I reviewed the CT scan. 01/03/21 05:09 - Consultations Consultation #1: Hospitalist consulted for admission. Hospitalist to admit patient. 01/03/21 05:09 ED Medical Decision Making - Lab Data Result diagrams: 01/03/21 01:45 01/03/21 01:45 Critical care attestation.: If time is entered above; I have spent that time in minutes in the direct care of this critically ill patient, excluding procedure time. ED Disposition Is pt being admited?: Yes Does the pt Need Aspirin: No Time of Disposition: 05:12
[2021-01-03 02:03] LABS: Basophils % (Auto) 0.6 % (0.0-1.8); Eosinophils # (Auto) 0.1 K/mm3 (0.0-0.4); Eosinophils % (Auto) 1.3 % (0.0-4.3); Hematocrit 31.9 % (30.3-42.9); Hemoglobin 10.5 gm/dl (10.1-14.3); Lymphocytes # (Auto) 1.7 K/mm3 (1.2-5.4); Lymphocytes % (Auto) 34.5 % (13.4-35.0); Mean Corpuscular HGB Conc 33 % (30-34); Mean Corpuscular Volume 85 fl (79-97); Monocytes # (Auto) 0.3 K/mm3 (0.0-0.8); Monocytes % (Auto) 6.8 % (0.0-7.3); Platelet Count 220 K/mm3 (140-440); Red Blood Count 3.74 M/mm3 (3.65-5.03); Red Cell Distribution Width 14.9 % (13.2-15.2)
[2021-01-03 02:20] LABS: Erythrocyte Sedimentation Rate 12 mm/Hr (0-20)
[2021-01-03 02:26] LABS: Alanine Aminotransferase 11 units/L (7-56); Albumin 4.2 g/dL (3.9-5); BUN/Creatinine Ratio 17; Blood Urea Nitrogen 10 mg/dL (7-17); Hemolysis Index 7
--- NOTE | 2021-01-03 03:39 | Cat Scan Report ---
CTA CHEST WITH CONTRAST INDICATION / CLINICAL INFORMATION: Chest pain x 2 weeks, Hx of Pericardial Effusion. TECHNIQUE: Axial CT images were obtained through the chest after injection of IV contrast. 3 plane PA P and/or 3D reconstructions were produced. All CT scans at this location are performed using CT dose reduction for ALARA by means of automated exposure control. COMPARISON: None available. FINDINGS: The central pulmonary arteries are patent. There are areas of low density within the right lower lung pulmonary arteries, axial image 217. Some heterogeneous areas in the peripheral upper and lower pulm onary arteries bilaterally. Some motion artifact slightly limits examination. Heart is mildly enlarge d. IMPRESSION: 1. The central pulmonary arteries are patent. There are areas of low attenuation within the segmental and peripheral pulmonary arteries. These findings could be related to the significant motion artifac t throughout the examination however these areas could also represent segmental peripheral PTE's. === CRITICAL RESULT: Time of Discovery (PBX INSPECTOR/CDT): 230 Time of Communication (PBX INSPECTOR/CDT): 230 Licensed Practitioner Receiving Report: Kobe Read-Back Performed: Yes. Signer Name: Norberto Westfall MD Signed: 01/03/2021 3:35 AM Workstation Name: [id number]
[2021-01-03] MEDS ORDERED: HEPARIN 10,000 UNITS/10 ML VIAL IV ONE (03:52)
[2021-01-03] MEDS ORDERED: HEPARIN 10,000 UNITS/10 ML VIAL IV PRN (03:52)
[2021-01-03 04:40] LABS: INR 0.99 (0.87-1.13)
[2021-01-03 04:41] LABS: Partial Thromboplastin Time 32.5 Sec. (24.2-36.6)
[2021-01-03] MEDS ORDERED: MORPHINE 4 MG/1 ML INJ IV PRN (05:20)
[2021-01-03] MEDS ORDERED: ACETAMINOPHEN 325 MG TAB PO PRN (05:20)
[2021-01-03] MEDS ORDERED: MAGNESIUM HYDROXIDE (MOM) ORAL LIQD UDC PO PRN (05:20)
[2021-01-03] MEDS ORDERED: ONDANSETRON 4 MG/2 ML INJ IV PRN (05:20)
[2021-01-03] MEDS ORDERED: MORPHINE 2 MG/1 ML INJ IV PRN (05:20)
[2021-01-03] MEDS: HEPARIN/ 0.45% NACL DRIP 25,000 UNIT/500 ML BAG IV SCH ×2 (05:22→21:15)
--- NOTE | 2021-01-03 05:31 | History and Physical Report ---
History of Present Illness Date of examination: 01/03/21 Date of admission: 01/03/2021 Chief complaint: Chest Pain History of present illness: 80-year-old -Thai female with known history of pericardial effusion presenting to the emergency room today complaining of chest pain which has been ongoing for about 2 weeks. Patient has been in the emergency room on multiple occasion with similar complaints. Chest pain is said to be worse upon lying down and feels better upon sitting up. Pain is said to be substernal, constant and feels like pressure and nonradiating. Pain is nonpleuritic. He denies any shortness of breath, no nausea or vomiting and no abdominal pain. Patient denies any headache or dizziness and denies any diaphoresis. She denies any lower extremity pain or swelling. Patient denies any fever or chills. She denies any sick contacts and no recent travel. Denies any contact with anyone with COVID-19. She has not been vaccinated against COVID-19. Work-up in the emergency room today, CT angiogram reveals:The central pulmonary arteries are patent. There are areas of low attenuation within the segmental and peripheral pulmonary arteries. These findings could be related to the significant motion artifact throughout the examination however these areas could also represent segmental peripheral PTE's. All other labs have been unremarkable. EKG has been within normal limits. Past History Past Medical History: other (History of eclampsia, heart normal) Past Surgical History: Other (Tubal ligation) Social history: alcohol abuse (Drinks alcohol occasionally) Family history: no significant family history Medications and Allergies Allergies Allergy/AdvReac Type Severity Reaction Status Date / Time No Known Allergies Allergy Verified 12/27/20 10:13 Home Medications Medication Instructions Recorded Confirmed Last Taken Type Amoxicillin [Amoxicillin TAB] 875 mg PO BID #20 tablet 08/12/15 12/27/20 Unknown Rx Ibuprofen [Motrin 800 MG tab] 800 mg PO Q8HR PRN #20 tablet 09/28/15 12/27/20 Unknown Rx Azithromycin [Zithromax] 250 mg PO DAILY #6 tablet 03/23/16 12/27/20 Unknown Rx Ibuprofen [Motrin] 800 mg PO Q8HR PRN #15 tablet 03/23/16 12/27/20 Unknown Rx Nitrofurantoin Monohyd/M-Cryst 100 mg PO BID #14 capsule 02/23/17 12/27/20 Unknown Rx [Macrobid 100 mg Capsule] Ibuprofen [Motrin] 600 mg PO Q8H PRN #24 tablet 03/23/19 12/27/20 Unknown Rx cephALEXin [Keflex] 500 mg PO Q8HR #30 cap 03/23/19 12/27/20 03/23/19 Rx Lidocaine Viscous 2% 10 ml MM DAILY PRN #120 udc 12/20/20 12/27/20 Unknown Rx Active Meds: Active Medications Acetaminophen (Acetaminophen 325 Mg Tab) 650 mg PO Q4H PRN PRN Reason: Pain MILD(1-3)/Fever >100.5/COLEMAN Heparin Sodium (Porcine) (Heparin 10,000 Units/10 Ml Vial) 2,700 unit 40 unit/kg (2700 unit) IV Q6H PRN PRN Reason: Anti-Xa Assay < 0.1 units/ml Heparin Sodium/Sodium Chloride (Heparin/ 0.45% Nacl-25,000 Unit/500 Ml) 25,000 unit in 500 mls @ 20 mls/hr IV TITR MARLA; Protocol Last Admin: 01/03/21 05:22 Dose: 1,000 units/hr, 20 mls/hr Documented by: Magnesium Hydroxide (Magnesium Hydroxide (Mom) Oral Liqd Udc) 30 ml PO Q4H PRN PRN Reason: Constipation Morphine Sulfate (Morphine 2 Mg/1 Ml Inj) 2 mg IV Q4H PRN PRN Reason: Pain, Moderate (4-6) Morphine Sulfate (Morphine 4 Mg/1 Ml Inj) 4 mg IV Q4H PRN PRN Reason: Pain , Severe (7-10) Ondansetron HCl (Ondansetron 4 Mg/2 Ml Inj) 4 mg IV Q8H PRN PRN Reason: Nausea And Vomiting Sodium Chloride (Sodium Chloride 0.9% 10 Ml Flush Syringe) 10 ml IV BID MARLA Sodium Chloride (Sodium Chloride 0.9% 10 Ml Flush Syringe) 10 ml IV PRN PRN PRN Reason: LINE FLUSH Review of Systems Constitutional: no fever, no chills Ears, nose, mouth and throat: no nasal congestion, no sore throat Cardiovascular: chest pain, orthopnea, no palpitations Respiratory: no cough, no shortness of breath Gastrointestinal: no abdominal pain, no nausea, no vomiting, no diarrhea Genitourinary Female: no pelvic pain, no flank pain, no dysuria, no hematuria Musculoskeletal: no neck pain, no low back pain Integumentary: no rash, no pruritis Neurological: no headaches, no confusion Psychiatric: no anxiety, no depression Endocrine: no polydipsia, no polyuria, no nocturia Exam - Constitutional Vitals: Temp Pulse Resp BP Pulse Ox 98.2 F 76 16 124/81 100 01/03/21 00:01/03/21 00:01/03/21 00:21 01/03/21 00:01/03/21 00:21 General appearance: Present: no acute distress, well-nourished - EENT Eyes: Present: PERRL, EOM intact. Absent: scleral icterus ENT: hearing intact, clear oral mucosa, dentition normal - Respiratory Respiratory effort: normal Respiratory: bilateral: CTA - Cardiovascular Rhythm: regular Heart Sounds: Present: S1 & S2. Absent: gallop, systolic murmur, diastolic murmur, rub, click - Extremities Extremities: no ischemia, pulses intact, pulses symmetrical, No edema, normal temperature, normal color, Full ROM Peripheral Pulses: within normal limits - Abdominal General gastrointestinal: Present: soft, non-tender, non-distended, normal bowel sounds. Absent: mass - Integumentary Integumentary: Present: clear, warm, dry. Absent: rash - Musculoskeletal Musculoskeletal: strength equal bilaterally - Psychiatric Psychiatric: appropriate mood/affect, intact judgment & insight, memory intact, cooperative - Neurologic Neurologic: CNII-XII intact, no focal deficits, moves all extremities HEART Score - HEART Score Troponin: Troponin T < 0.010 ng/mL (0.00-0.029) 01/03/21 01:45 Results - Labs CBC & Chem 7: 01/03/21 01:45 01/03/21 01:45 Assessment and Plan - Patient Problems (1) Multiple subsegmental pulmonary emboli without acute cor pulmonale Status: Acute Plan to address problem: CT angiogram has not been quite conclusive however, patient has been placed on IV heparin drip. May repeat CT angiogram after 24 hours. (2) DVT prophylaxis Status: Acute Plan to address problem: Patient currently on heparin drip. (3) Full code status Status: Acute Plan to address problem: Patient is full code.
--- NOTE | 2021-01-03 09:28 | Event Note ---
Date: 01/03/21 This is a follow-up from an admission earlier this morning. Patient seen and examined. We will continue to plan as outlined in H&P. Check echocardiogram to rule out right ventricular strain. Consider hypercoagulable work-up. Patient denies any family history for DVT/PE. Patient has had 4 childbirths with no spontaneous abortions. Patient denies control. Consult hematology for further evaluation. Total visit time equals 35 minutes with greater than 50% spent on coordination of care and counseling
--- NOTE | 2021-01-03 13:36 | Electrocardiograph Report ---
[facility] Test Date: 2021-01-03 Test Time: 02:15:43 Pat Name: VIANNEY YAÑEZ Department: ED Room: [facility] Gender: F Systems Protection Technician: CHRISTIANO : 1990 Requested By: GODFREY ALEMAN Order Number: [id number] Reading MD: Edilia Richardson Measurements Intervals Porter Rate: 71 P: 56 IL: 171 QRS: 58 QRSD: 81 T: 66 QT: 378 QTc: 412 Interpretive Statements Sinus rhythm Compared to ECG 12/27/2020 05:57:14 No significant changes Electronically Signed On 01-03-2021 13:36:17 EDT by Edilia Richardson
--- NOTE | 2021-01-03 14:55 | Consultation ---
History of Present Illness - Reason for Consult Consult date: 01/03/21 Bilateral Pulmonary Emboli Requesting physician: SHAI NGUYEN - History of Present Illness The patient is a 30-year-old female with a history of pericarditis, of unknown origin, who states she has been experiencing chest pain and shortness of breath for approximately 1 month. She states that over the past month she has had approximately 6 visits to various emergency departments including 3 visits to [facility]. She states that typically the chest pain and shortness of breath were worse with laying down however the episode that prompted this recent visit to the emergency department occurred while she was driving. Prior to this month she denies any previous episodes of this nature. She states that she had an upper respiratory tract infection approximately 3 to 4 weeks ago which she thought was a cold and she managed this with an herbal tea which she states did not help. She denies any leg swelling, prolonged car rides, prolonged bedrest, recent trauma, or recent surgery. She denies any family history of DVT or pulmonary embolism. She has no additional complaints at this time. The CTA of her chest demonstrated segmental and subsegmental pulmonary emboli in bilateral lungs. Past History Past Medical History: other (History of eclampsia, history of pericarditis) Past Surgical History: Other (Tubal ligation) Social history: alcohol abuse (Drinks alcohol occasionally) Family history: no significant family history Medications and Allergies Allergies Allergy/AdvReac Type Severity Reaction Status Date / Time No Known Allergies Allergy Verified 12/27/20 10:13 Home Medications Medication Instructions Recorded Confirmed Last Taken Type Amoxicillin [Amoxicillin TAB] 875 mg PO BID #20 tablet 08/12/15 12/27/20 Unknown Rx Ibuprofen [Motrin 800 MG tab] 800 mg PO Q8HR PRN #20 tablet 09/28/15 12/27/20 Unknown Rx Azithromycin [Zithromax] 250 mg PO DAILY #6 tablet 03/23/16 12/27/20 Unknown Rx Ibuprofen [Motrin] 800 mg PO Q8HR PRN #15 tablet 03/23/16 12/27/20 Unknown Rx Nitrofurantoin Monohyd/M-Cryst 100 mg PO BID #14 capsule 02/23/17 12/27/20 Unknown Rx [Macrobid 100 mg Capsule] Ibuprofen [Motrin] 600 mg PO Q8H PRN #24 tablet 03/23/19 12/27/20 Unknown Rx cephALEXin [Keflex] 500 mg PO Q8HR #30 cap 03/23/19 12/27/20 03/23/19 Rx Lidocaine Viscous 2% 10 ml MM DAILY PRN #120 udc 12/20/20 12/27/20 Unknown Rx Active Meds: Active Medications Acetaminophen (Acetaminophen 325 Mg Tab) 650 mg PO Q4H PRN PRN Reason: Pain MILD(1-3)/Fever >100.5/COLEMAN Heparin Sodium (Porcine) (Heparin 10,000 Units/10 Ml Vial) 2,700 unit 40 unit/kg (2700 unit) IV Q6H PRN PRN Reason: Anti-Xa Assay < 0.1 units/ml Heparin Sodium/Sodium Chloride (Heparin/ 0.45% Nacl-25,000 Unit/500 Ml) 25,000 unit in 500 mls @ 20 mls/hr IV TITR MARLA; Protocol Last Titration: 01/03/21 14:14 Dose: 1,000 units/hr, 20 mls/hr Documented by: Magnesium Hydroxide (Magnesium Hydroxide (Mom) Oral Liqd [facility] [place] [facility]) 30 ml PO Q4H PRN PRN Reason: Constipation Morphine Sulfate (Morphine 2 Mg/1 Ml Inj) 2 mg IV Q4H PRN PRN Reason: Pain, Moderate (4-6) Morphine Sulfate (Morphine 4 Mg/1 Ml Inj) 4 mg IV Q4H PRN PRN Reason: Pain , Severe (7-10) Ondansetron HCl (Ondansetron 4 Mg/2 Ml Inj) 4 mg IV Q8H PRN PRN Reason: Nausea And Vomiting Sodium Chloride (Sodium Chloride 0.9% 10 Ml Flush Syringe) 10 ml IV BID MARLA Sodium Chloride (Sodium Chloride 0.9% 10 Ml Flush Syringe) 10 ml IV PRN PRN PRN Reason: LINE FLUSH Review of Systems All systems: negative Exam - Constitutional Vitals: Temp Pulse Resp BP Pulse Ox 98.2 F 84 15 130/76 100 01/03/21 00:21 01/03/21 06:34 01/03/21 06:34 01/03/21 06:34 01/03/21 06:34 General appearance: Present: no acute distress - Neck Neck: Present: supple - Respiratory Respiratory effort: normal - Cardiovascular Heart rate: 78 Rhythm: regular - Extremities Extremities: no ischemia, pulses intact, No edema - Abdominal General gastrointestinal: Present: soft, non-tender, non-distended Female genitourinary: Present: deferred - Rectal Rectal Exam: deferred - Musculoskeletal Musculoskeletal: strength equal bilaterally - Psychiatric Psychiatric: appropriate mood/affect Results - Labs CBC & Chem 7: 01/03/21 01:45 01/03/21 01:45 - Imaging and Cardiology CT scan - chest: image reviewed Assessment and Plan The patient is a 30-year-old female who presented to the emergency department with complaints of shortness of breath and chest pain. She was found to have bilateral pulmonary emboli in the segmental and subsegmental vessels. She is hemodynamically stable with a heart rate in the 70s and 80s. Her oxygen saturations remained in the high 90s to 100% on room air during my examination. Her troponin is negative and she had an echocardiogram that demonstrated no evidence of right heart strain. At this time there is no indication for vascul ar surgery intervention with thrombolysis or percutaneous mechanical thrombectomy of her pulmonary emboli. Would recommend converting the patient to oral anticoagulation with a DOAC such as Eliquis 5 mg p.o. twice daily for minimum of 6 months, however she does not elicit a history consistent with a provoked DVT and PE which would suggest that this is an unprovoked PE and the recommendation will therefore be lifelong anticoagulation. I would recommend a hypercoagulable work-up as well as bilateral lower extremity venous duplex to evaluate for DVT.
[2021-01-04 06:25] LABS: Basophils % (Auto) 0.4 % (0.0-1.8); Eosinophils # (Auto) 0.1 K/mm3 (0.0-0.4); Hematocrit 32.3 % (30.3-42.9); Hemoglobin 10.5 gm/dl (10.1-14.3); Lymphocytes # (Auto) 1.9 K/mm3 (1.2-5.4); Lymphocytes % (Auto) 35.3 % (13.4-35.0); Mean Corpuscular HGB Conc 33 % (30-34); Mean Corpuscular Volume 85 fl (79-97); Monocytes # (Auto) 0.4 K/mm3 (0.0-0.8); Monocytes % (Auto) 7.1 % (0.0-7.3); Platelet Count 230 K/mm3 (140-440); Red Blood Count 3.81 M/mm3 (3.65-5.03); Red Cell Distribution Width 14.7 % (13.2-15.2)
[2021-01-04 06:36] LABS: INR 1.1 (0.87-1.13)
[2021-01-04 06:41] LABS: Blood Urea Nitrogen 5 mg/dL (7-17); Calcium 9.6 mg/dL (8.4-10.2); Hemolysis Index 1
[2021-01-04 07:31] LABS: BUN/Creatinine Ratio 10
[2021-01-04 12:08] VITALS: BP 128/79
--- NOTE | 2021-01-04 12:09 | Discharge Summary ---
Providers - Providers Date of Admission: 01/03/21 05:20 Date of discharge: 01/04/21 Attending physician: RHETT STOCK 01/03/21 07:24 Consult to Physician [CONS] Routine Comment: Consulting Provider: MARYANNE BURRIS Physician Instructions: Reason For Exam: PE Primary care physician: PASTRY WRAPPER Hospitalization Condition: Critical Hospital course: 80-year-old -Mosotho female with known history of pericardial effusion presenting to the emergency room today complaining of chest pain which has been ongoing for about 2 weeks. Patient has been in the emergency room on multiple occasion with similar complaints. Chest pain is said to be worse upon lying down and feels better upon sitting up. Pain is said to be substernal, constant and feels like pressure and nonradiating. Pain is nonpleuritic. He denies any shortness of breath, no nausea or vomiting and no abdominal pain. Patient denies any headache or dizziness and denies any diaphoresis. She denies any lower extremity pain or swelling. Patient denies any fever or chills. She denies any sick contacts and no recent travel. Denies any contact with anyone with COVID-19. She has not been vaccinated against COVID-19. Work-up in the emergency room today, CT angiogram reveals:The central pulmonary arteries are patent. There are areas of low attenuation within the segmental and peripheral pulmonary arteries. These findings could be related to the significant motion artifact throughout the examination however these areas could also represent segmental peripheral PTE's. All other labs have been unremarkable. EKG has been within normal limits. Acute pulmonary embolism Consult by Dr. Burris appreciated Patient to be discharged on Eliquis orally twice a day 5 mg for 6 months to 1 year next year Discussed at length the patient's diagnosis and also to get protein C/protein S deficiency work-up as outpatient Hypokalemia Disposition: 01 HOME / SELF CARE / HOMELESS Final Discharge Diagnosis (Prints w/discharge instructions): Acute pulmonary embolism - Discharge Diagnoses (1) Acute pulmonary embolism Status: Acute Qualifiers: Acute cor pulmonale presence: without acute cor pulmonale Comment: Patient will be discharged on Eliquis 5 mg twice a day for 6 months to 1 year Patient also to get hypercoagulable state work-up including protein C and protein S levels (2) Hypokalemia Status: Acute Comment: Supplemented (3) DVT prophylaxis Status: Acute Core Measure Documentation - Palliative Care Palliative Care/ Comfort Measures: Not Applicable - Core Measures Any of the following diagnoses?: none Exam - Constitutional Vitals: Temp Pulse Resp BP Pulse Ox 98.1 F 85 16 128/79 100 01/04/21 11:19 01/04/21 11:19 01/04/21 11:19 01/04/21 11:19 01/04/21 11:19 General appearance: Present: no acute distress, well-nourished - EENT Eyes: Present: PERRL ENT: hearing intact, clear oral mucosa - Neck Neck: Present: supple, normal ROM - Respiratory Respiratory effort: normal Respiratory: bilateral: CTA - Cardiovascular Heart rate: 78 Rhythm: regular Heart Sounds: Present: S1 & S2. Absent: rub, click - Extremities Extremities: pulses symmetrical, No edema Peripheral Pulses: within normal limits - Abdominal General gastrointestinal: Present: soft, non-tender, non-distended, normal bowel sounds Female genitourinary: Present: normal - Integumentary Integumentary: Present: clear, warm, dry - Musculoskeletal Musculoskeletal: gait normal, strength equal bilaterally - Psychiatric Psychiatric: appropriate mood/affect, intact judgment & insight - Neurologic Neurologic: CNII-XII intact, moves all extremities Plan Activity: no restrictions Diet: regular Follow up with: PRIMARY CARE, [Primary Care Provider] - 7 Days
[2021-01-04] MEDS ORDERED: POTASSIUM CHLORIDE ER 20 MEQ TAB PO ONE (13:30)
[2021-01-04] MEDS ORDERED: APIXABAN 5 MG TAB ONE (20:24)
== END 2021-01-04 15:27 | disposition home or self-care (01) ==
LOC: ED 23:18 → UNDOADMOB 01-03 05:20 → 4A 01-03 05:20
PROVIDERS: ADMIT Internal Medicine Geriatric Medicine; ATTEND Internal Medicine
DX: I26.94 Multiple subsegmental thrombotic pulmonary emboli without acute cor pulmonale (principal); I10 Essential (primary) hypertension; R07.2 Precordial pain; E87.6 Hypokalemia; Z98.51 Tubal ligation status
CPT/HCPCS: 36415; 71275; 80048; 80053; 83735; 84484; 84703; 85025; 85520; 85610; 85652; 85730; 86140; 93005; 93306; 96365; 96366; 96376; 99291; 99292; G0378; J1644; Q9967

== ENCOUNTER 2021-01-04 17:25 | Emergency (ER) | payer OTHER ==
[2021-01-04 18:06] VITALS: BP 129/78
--- NOTE | 2021-01-04 18:16 | Emergency Department Report ---
Chief Complaint: Weakness Stated Complaint: return for blood clots, still not feeling well Time Seen by Provider: 01/04/21 18:09 - HPI History of Present Illness: The patient was evaluated in the emergency department for symptoms described in the history of present illness. He/she was evaluated in the context of the global COVID-19 pandemic, which necessitated consideration that the patient might be at risk for infection with the virus that causes COVID-19. Institut ional protocols and algorithms that pertain to the evaluation of patients at risk for COVID-19 are in a state of rapid change based on information released by regulatory bodies including the CDC and federal and state organizations. These policies and algorithms were followed during the patient's care in the emergency department. Please note that these policies, procedures and recommendations changed on a rapid basis. 30-year-old -Israeli female presents to the emergency room stating she just was discharged about 2:00 today with a diagnosis of pulmonary embolism and a sore throat. Patient comes back in stating that she just does not feel well. Patient was discharged on Eliquis and Keflex but has not picked up her prescriptions. Patient denies any chest pain no shortness of breath. She has not taken any pain medication for her sore throat. Patient states she just feels warm. Patient is unvaccinated. - Exam Vital Signs: Vital Signs 01/04/21 18:03 Temperature 98.3 F Pulse Rate 90 Respiratory 16 Rate Blood Pressure 129/78 [Left] O2 Sat by Pulse 99 Oximetry Physical Exam: General: Awake, appropriately interactive, no acute distress. Neck: Supple. Full range of motion intact. Cardiovascular: Normal peripheral perfusion. Pulmonary: No respiratory distress. Patient is speaking normally without use of accessory muscles. Skin: No apparent rashes or lesions. Neurological: No facial asymmetry. Speech is clear. Follows commands. Patient is alert and oriented. Musculoskeletal: Full range of motion, no crepitus. Able to bear weight and ambulate without difficulty. Distal neurovascular and motor/sensory function is intact. Psych: Cooperative. Appropriate mood and affect. MSE screening note: Focused history and physical exam performed. Due to findings the following was ordered: 30-year-old -Israeli female presents to the emergency room stating she just was discharged about 2:00 today with a diagnosis of pulmonary embolism and a sore throat. Patient comes back in stating that she just does not feel well. Patient was discharged on Eliquis and Keflex but has not picked up her prescriptions. Patient denies any chest pain no shortness of breath. She has not taken any pain medication for her sore throat. Patient states she just feels warm. Patient is unvaccinated. Patient has stable vital signs. Patient admitted that she was just a little scared. Discussed with patient the plan for her to follow-up with her cardio logist and to find a primary care provider. Discussed with patient to continue all the medications that was placed on her at discharge. Discussed with patient she can take Tylenol for her discomfort and to stay away from ibuprofen and Aleve. Patient verbalized understanding. ED Disposition for MSE Clinical Impression: Acute pulmonary embolism Disposition: HOME / SELF CARE / HOMELESS Is pt being admited?: No Does the pt Need Aspirin: No Condition: Stable Additional Instructions: Please pick up driver your prescriptions from the pharmacy and start them immediately. I would like for you to take Tylenol for pain. Do not take any ibuprofen or Aleve while taking Eliquis. Recommend that she increase your fluids and advance your diet as tolerated. Is very important you follow-up with your port cdl a driver and a primary care provider. Please return back to the emergency room if any worsening symptoms such as increased shortness of breath extreme chest pain. Referrals: [facility] [Provider Group] - 3-5 Days JADE KATHLEEN MD [Staff Physician] - 3-5 Days Time of Disposition: 18:23
== END 2021-01-04 18:30 | disposition left against medical advice (07) ==
LOC: ED 17:25
DX: I26.99 Other pulmonary embolism without acute cor pulmonale (principal)

== ENCOUNTER 2021-01-06 17:22 | Emergency (ER) | payer OTHER | END 2021-01-06 20:55 | disposition left against medical advice (07) | LOC: ED 17:22 | DX: J02.9 Acute pharyngitis, unspecified (principal); Z53.21 Procedure and treatment not carried out due to patient leaving prior to being seen by health care provider ==

== ENCOUNTER 2021-01-07 06:41 | Emergency (ER) | payer OTHER | END 2021-01-07 12:15 | disposition left against medical advice (07) | LOC: ED 06:41 | DX: R07.89 Other chest pain (principal); Z53.21 Procedure and treatment not carried out due to patient leaving prior to being seen by health care provider ==

== ENCOUNTER 2021-01-07 08:43 | Emergency (ER) | payer OTHER ==
--- NOTE | 2021-01-07 09:07 | Event Note ---
ED Screening Note ED Screening Note: EMR reviewed 9-18 dc from here with PE on eloquis-- it is in her bag here yest for sore throat; says she is taking anbx that starts with "c"- not in her bag co ongoing sob did not see pcp recommended protein S/C work up- see Dr De Jesus's note no prior pe/dvt per pt not obese not sedentary not on hormones recent covid per pt was neg no fever or chills This initial assessment/diagnostic orders/clinical plan/treatment(s) is/are subject to change based on patients health status, clinical progression and re- assessment by fellow clinical providers in the ED. Further treatment and workup at subsequent clinical providers discretion. Patient/guardian urged not to elope from the ED as their condition may be serious if not clinically assessed and managed. Initial orders include: ? clot burden causing sob Nolvia SHIN aware- to main
[2021-01-07 09:34] LABS: Basophils % (Auto) 0.2 % (0.0-1.8); Eosinophils % (Auto) 0.5 % (0.0-4.3); Hematocrit 35.4 % (30.3-42.9); Hemoglobin 11.5 gm/dl (10.1-14.3); Lymphocytes # (Auto) 1.7 K/mm3 (1.2-5.4); Lymphocytes % (Auto) 33.6 % (13.4-35.0); Mean Corpuscular HGB Conc 33 % (30-34); Mean Corpuscular Volume 85 fl (79-97); Monocytes # (Auto) 0.3 K/mm3 (0.0-0.8); Monocytes % (Auto) 6.2 % (0.0-7.3); Platelet Count 262 K/mm3 (140-440); Red Blood Count 4.18 M/mm3 (3.65-5.03)
[2021-01-07 09:45] LABS: INR 1.49 (0.87-1.13)
[2021-01-07 09:46] LABS: Partial Thromboplastin Time 38.5 Sec. (24.2-36.6)
[2021-01-07 10:23] LABS: Alanine Aminotransferase 11 units/L (7-56); Albumin 4.6 g/dL (3.9-5); Blood Urea Nitrogen 6 mg/dL (7-17); Calcium 9.6 mg/dL (8.4-10.2); Hemolysis Index 4
[2021-01-07 10:41] LABS: BUN/Creatinine Ratio 10
--- NOTE | 2021-01-07 11:42 | Emergency Department Report ---
ED Chest Pain HPI - General Chief Complaint: Chest Pain Stated Complaint: NAUSEA,SOB Time Seen by Provider: 01/07/21 09:03 Source: patient Mode of arrival: Ambulatory Limitations: No Limitations - History of Present Illness Initial Comments: 30-year-old female, history of pericardial effusion, recently diagnosed with a PE, presents to ED with complaint of chest discomfort. Patient reports earlier this morning, she was experiencing some heaviness in her chest. Patient states the discomfort was worse with lying down. This is apparently the same symptoms that patient was experiencing 4 days ago when diagnosed with her PE. CTA at that time showed multiple subsegmental areas of low attenuation that could represent PE, however there was apparently significant motion artifact throughout the exam. During admission, echo showed no evidence of a pericardial effusion or right heart strain. She was seen and evaluated by vascular surgery who found no indication for vascular intervention. Patient was placed on Eliquis and discharged from ED 3 days ago. She denies any shortness of breath currently. Patient reports she has been compliant with her Eliquis since her PE diagnosis. Patient reports since being in the ED, her symptoms have resolved and she is feeling much better at this time. -: This morning - Related Data Previous Rx's Medication Instructions Recorded Last Taken Type Amoxicillin [Amoxicillin TAB] 875 mg PO BID #20 tablet 08/12/15 Unknown Rx Ibuprofen [Motrin 800 MG tab] 800 mg PO Q8HR PRN #20 tablet 09/28/15 Unknown Rx Azithromycin [Zithromax] 250 mg PO DAILY #6 tablet 03/23/16 Unknown Rx Ibuprofen [Motrin] 800 mg PO Q8HR PRN #15 tablet 03/23/16 Unknown Rx Nitrofurantoin Monohyd/M-Cryst 100 mg PO BID #14 capsule 02/23/17 Unknown Rx [Macrobid 100 mg Capsule] Ibuprofen [Motrin] 600 mg PO Q8H PRN #24 tablet 03/23/19 Unknown Rx Lidocaine Viscous 2% 10 ml MM DAILY PRN #120 udc 12/20/20 Unknown Rx Apixaban [Eliquis starter pack] 5 mg PO BID #60 tab.ds.pk 01/04/21 Unknown Rx cephALEXin [Keflex] 500 mg PO Q8HR #24 cap 01/04/21 Unknown Rx Allergies Allergy/AdvReac Type Severity Reaction Status Date / Time No Known Allergies Allergy Verified 12/27/20 10:13 Heart Score - HEART Score History: Slightly suspicious EKG: Non-specific Age: < 45 Risk factors: No known risk factors Troponin: < normal limit HEART Score: 1 - EKG Read Time Time EKG Completed: 09:19 EKG Read Time: 09:28 ED Review of Systems ROS: Stated complaint: NAUSEA,SOB Other details as noted in HPI ED Past Medical Hx - Past Medical History Previous Medical History?: Yes Hx Hypertension: Yes (with eclampsia) Hx Diabetes: No Hx Deep Vein Thrombosis: No Hx Renal Disease: No Hx Sickle Cell Disease: No Hx Seizures: No Hx Asthma: No Hx HIV: No Additional medical history: heart murmur. eclampsia. pericarditis - Surgical History Past Surgical History?: Yes Additional Surgical History: TUBAL LIGATION - Social History Smoking Status: Never Smoker Substance Use Type: None - Medications Home Medications: Home Medications Medication Instructions Recorded Confirmed Last Taken Type Amoxicillin [Amoxicillin TAB] 875 mg PO BID #20 tablet 08/12/15 01/04/21 Unknown Rx Ibuprofen [Motrin 800 MG tab] 800 mg PO Q8HR PRN #20 tablet 09/28/15 01/04/21 Unknown Rx Azithromycin [Zithromax] 250 mg PO DAILY #6 tablet 03/23/16 01/04/21 Unknown Rx Ibuprofen [Motrin] 800 mg PO Q8HR PRN #15 tablet 03/23/16 01/04/21 Unknown Rx Nitrofurantoin Monohyd/M-Cryst 100 mg PO BID #14 capsule 02/23/17 01/04/21 Unknown Rx [Macrobid 100 mg Capsule] Ibuprofen [Motrin] 600 mg PO Q8H PRN #24 tablet 03/23/19 01/04/21 Unknown Rx Lidocaine Viscous 2% 10 ml MM DAILY PRN #120 udc 12/20/20 01/04/21 Unknown Rx Apixaban [Eliquis starter pack] 5 mg PO BID #60 tab.ds.pk 01/04/21 Unknown Rx cephALEXin [Keflex] 500 mg PO Q8HR #24 cap 01/04/21 Unknown Rx ED Physical Exam - General Limitations: No Limitations ED Course Vital Signs 01/07/21 01/07/21 08:53 12:43 Temperature 97.8 F 98.8 F Pulse Rate 94 H 88 Respiratory 18 Rate Blood Pressure 126/67 Blood Pressure 120/79 [Right] O2 Sat by Pulse 100 Oximetry KATHARINE score - Katharine Score Age > 65: (0) No Aspirin use within the Past 7 Days: (0) No 3 or more CAD Risk Factors: (0) No 2 or more Angina events in past 24 hrs: (0) No Known CAD with more than 50% Stenosis: (0) No Elevated Cardiac Markers: (0) No ST Deviation Greater than 0.5mm: (0) No KATHARINE Score: 0 ED Medical Decision Making - Lab Data Result diagrams: 01/07/21 09:12 01/07/21 09:12 - EKG Data -: EKG Interpreted by Tx EKG shows normal: sinus rhythm, axis, intervals, QRS complexes, ST-T waves Rate: normal - EKG Data Interpretation: nonspecific ST-T wave curly - Radiology Data Radiology results: report reviewed, image reviewed - Medical Decision Making Labs unremarkable. EKG shows no ST changes. Patient is not hypoxic, O2 sats are normal. She is in no respiratory distress. Patient is not tachycardic. Chest x-ray is normal. She is compliant with her Eliquis states she feels much better at this time. Patient is comfortable with discharge home. Outpatient follow-up advised, return precautions given. - Differential Diagnosis PE Critical care attestation.: If time is entered above; I have spent that time in minutes in the direct care of this critically ill patient, excluding procedure time. ED Disposition Clinical Impression: Chest pain Disposition: 01 HOME / SELF CARE / HOMELESS Is pt being admited?: No Condition: Stable Instructions: Nonspecific Chest Pain, Adult Referrals: PRIMARY CARE, [Primary Care Provider] - 3-5 Days Time of Disposition: 12:27
--- NOTE | 2021-01-07 11:43 | Electrocardiograph Report ---
[facility] Test Date: 2021-01-07 Test Time: 09:19:58 Pat Name: VIANNEY YAÑEZ Department: Room: Gender: F [employer]: XIMENA : 1990 Requested By: ROMMEL PANG Order Number: [id number] Reading MD: Presley Beck Measurements Intervals [place] Rate: 74 P: 73 UT: 179 QRS: 57 QRSD: 86 T: 62 QT: 381 QTc: 424 Interpretive Statements Sinus rhythm Probable left atrial enlargement nonspecific st-t Compared to ECG 01/03/2021 02:15:43 No significant changes Electronically Signed On 01-07-2021 11:42:52 EDT by Presley Beck
[2021-01-07 11:51] LABS: Bacteria,Urine 1+ /HPF (Negative); Bilirubin,Urine NEG (Negative); Blood,Urine NEG (Negative); Color,Urine Yellow (Yellow); Mucus,Urine 3+ /HPF
[2021-01-07 11:53] LABS: HCG Qualitative,Urine Negative (Negative)
--- NOTE | 2021-01-07 12:20 | XRay Report ---
CHEST 2 VIEWS INDICATION / CLINICAL INFORMATION: Shortness of breath. COMPARISON: 12/27/20. FINDINGS: SUPPORT DEVICES: None. HEART / MEDIASTINUM: The heart size and pulmonary vasculature are normal. LUNGS / PLEURA: No significant pulmonary or pleural abnormality. No pneumothorax. ADDITIONAL FINDINGS: No significant additional findings. IMPRESSION: No acute abnormality or significant change. Signer Name: Moose Louise MD Signed: 01/07/2021 12:16 PM Workstation Name: [id number]
[2021-01-07 12:44] VITALS: BP 120/79
== END 2021-01-07 12:43 | disposition home or self-care (01) ==
LOC: ED 08:43
DX: R07.9 Chest pain, unspecified (principal); I10 Essential (primary) hypertension; R01.1 Cardiac murmur, unspecified; I31.9 Disease of pericardium, unspecified; Z98.890 Other specified postprocedural states
CPT/HCPCS: 36415; 71046; 80053; 81001; 81025; 84484; 85025; 85610; 85730; 93005; 99283

== ENCOUNTER 2021-01-07 16:41 | Emergency (ER) | payer OTHER ==
[2021-01-07 17:39] VITALS: BP 137/86
--- NOTE | 2021-01-07 17:49 | Event Note ---
ED Screening Note Date of service: 01/07/21 Time: 17:47 ED Screening Note: 40-year-old female patient presents to the emergency department for the third time today with complaints of sore throat for 6 weeks. This is patient's ninth visit to this emergency department in less than 3 weeks. Patient was already discharged home from the emergency department 5 hours ago. Patient's ride home from the emergency department was reportedly delayed so she decided to check in again for her sore throat. Patient checked in for sore throat yesterday as well but left without treatment. Patient did not complain of a sore throat
--- NOTE | 2021-01-07 17:56 | Emergency Department Report ---
Chief Complaint: Sore Throat Stated Complaint: SORE THROAT,AND TIGHTNESS Time Seen by Provider: 01/07/21 17:44 - HPI History of Present Illness: 40-year-old female patient presents to the emergency department for the third time today with complaints of sore throat for 6 weeks. This is patient's ninth visit to this emergency department in less than 3 weeks. Patient was already discharged home from the emergency department 5 hours ago. Patient's ride home from the emergency department was reportedly delayed so she decided to check in again for her sore throat. Patient checked in for sore throat yesterday as well but left without treatment. Patient did not complain of a sore throat during today's earlier evaluation. Patient has not consulted her primary care provider regarding her ongoing sore throat. She has not taken any medications for her sore throat. Her symptoms are no different today. - ROS Review of Systems: GENERAL: Negative for fever. ENT: Positive for sore throat. PULMONARY: Negative for shortness of breath. GASTROINTESTINAL: Negative for abdominal pain. MUSCULOSKELETAL: Negative for back pain. NEUROLOGICAL: Negative for headache. INTEGUMENTARY: Negative for rash. - Exam Vital Signs: Vital Signs 01/07/21 17:36 Temperature 98.3 F Pulse Rate 112 H Respiratory 18 Rate Blood Pressure 137/86 O2 Sat by Pulse 100 Oximetry Physical Exam: General: Awake, appropriately interactive, no acute distress. ENT: Airway is patent. No pharyngeal erythema, edema, or exudate. Uvula is midline and nonedematous. No trismus. Neck: Supple. Full range of motion intact. No cervical lymphadenopathy. Cardiovascular: Normal peripheral perfusion. Pulmonary: No respiratory distress. Patient is speaking normally without use of accessory muscles. Skin: No apparent rashes or lesions. Neurological: No facial asymmetry. Speech is clear. Follows commands. Patient is alert and oriented. Musculoskeletal: Moves all four extremities spontaneously with normal range of motion. Psych: Cooperative. Appropriate mood and affect. MSE screening note: Focused history and physical exam performed. Due to findings the following was ordered: ED Medical Decision Making - Medical Decision Making Patient presents to the emergency department for the third time in less than 24 hours with complaints of sore throat for 6 weeks, unchanged today. She is afebrile, no hypoxia, no respiratory distress. Tachycardia noted. Patient is known to have a pulmonary embolism. She is on Eliquis. She has not consulted a primary care provider regarding her ongoing throat discomfort. There is no clinical evidence to suggest airway obstruction or systemic illness warranting further diagnostic work-up on an emergent basis at this time. Patient will be discharged home to follow-up with primary care provider for definitive management of ongoing symptoms. Strict return precautions provided. BILLING/CODING: This patient encounter does not represent a certified medical emergency. ED Disposition for MSE Clinical Impression: Encounter for medical screening examination Disposition: HOME / SELF CARE / HOMELESS Is pt being admited?: No Does the pt Need Aspirin: No Condition: Stable Instructions: Medical Screening Exam Additional Instructions: Continue Eliquis as previously prescribed. You must follow-up with your primary care provider for definitive diagnosis and management of ongoing sore throat. Return to the emergency department immediately for new or worsening symptoms. Referrals: JADE KATHLEEN MD [Staff Physician] - 3-5 Days Time of Disposition: 17:56
== END 2021-01-07 21:01 | disposition home or self-care (01) ==
LOC: ED 16:41
DX: J02.9 Acute pharyngitis, unspecified (principal); Z13.9 Encounter for screening, unspecified

== ENCOUNTER 2021-01-12 13:59 | Emergency (ER) | payer OTHER ==
--- NOTE | 2021-01-12 14:45 | Emergency Department Report ---
ED General Adult HPI - General Chief complaint: Abdominal Pain Stated complaint: L ARM PAIN/ABD PAIN Time Seen by Provider: 01/12/21 14:39 Source: patient Mode of arrival: Ambulatory Limitations: No Limitations - History of Present Illness Initial comments: With multiple complaints. Patient states that for the last month or so she feels as though when she eats solid food it almost seems to get stuck and then she has a "fluttering sensation inside." She states that she does not notice this with liquid. She only notices this with solid food. Again is been going on about a month. She has been seen numerous times in this ED for various different complaints. This is the first time she is ever complained about a fluttering sensation internally. Regardless, patient states it does seem to wax and wane. It is generalized in her feeling. She has no cough or congestion. There is no vomiting. She has no diarrhea. She was diagnosed with a pulmonary embolism previously and is still taking her blood thinners. She was not sure if that was related to what was going on today or not. Patient also states that her left arm is sore and achy. It is been present for a week now. There is no trauma associated with this. She describes it just as an aching sensation. Symptoms are worse when she moves her arm. It is not exertional. She has no associated dyspnea or diaphoresis. There is no other associated trauma. - Related Data Previous Rx's Medication Instructions Recorded Last Taken Type Ibuprofen [Motrin 800 MG tab] 800 mg PO Q8HR PRN #20 tablet 09/28/15 Unknown Rx Ibuprofen [Motrin] 800 mg PO Q8HR PRN #15 tablet 03/23/16 Unknown Rx Ibuprofen [Motrin] 600 mg PO Q8H PRN #24 tablet 03/23/19 Unknown Rx Lidocaine Viscous 2% 10 ml MM DAILY PRN #120 udc 12/20/20 Unknown Rx Apixaban [Eliquis starter pack] 5 mg PO BID #60 tab.ds.pk 01/04/21 Unknown Rx Metoclopramide [Reglan] 10 mg PO ACHS #120 tablet 01/12/21 Unknown Rx Allergies Allergy/AdvReac Type Severity Reaction Status Date / Time No Known Allergies Allergy Verified 12/27/20 10:13 ED Review of Systems ROS: Stated complaint: L ARM PAIN/ABD PAIN Other details as noted in HPI Comment: All other systems reviewed and negative Constitutional: denies: fever Eyes: denies: eye pain ENT: denies: throat pain Respiratory: denies: cough Cardiovascular: denies: chest pain Endocrine: denies: unexplained weight loss Gastrointestinal: as per HPI Genitourinary: denies: frequency Musculoskeletal: denies: back pain Skin: denies: rash Neurological: denies: headache Hematological/Lymphatic: denies: easy bruising ED Past Medical Hx - Past Medical History Previous Medical History?: Yes Hx Hypertension: Yes (with eclampsia) Hx Diabetes: No Hx Deep Vein Thrombosis: No Hx Renal Disease: No Hx Sickle Cell Disease: No Hx Seizures: No Hx Asthma: No Hx HIV: No Additional medical history: heart murmur. eclampsia. pericarditis - Surgical History Past Surgical History?: Yes Additional Surgical History: TUBAL LIGATION - Family History Family history: other ( Negative for ulcer disease) - Social History Smoking Status: Never Smoker Substance Use Type: None - Medications Home Medications: Home Medications Medication Instructions Recorded Confirmed Last Taken Type Ibuprofen [Motrin 800 MG tab] 800 mg PO Q8HR PRN #20 tablet 09/28/15 01/04/21 Unknown Rx Ibuprofen [Motrin] 800 mg PO Q8HR PRN #15 tablet 03/23/16 01/04/21 Unknown Rx Ibuprofen [Motrin] 600 mg PO Q8H PRN #24 tablet 03/23/19 01/04/21 Unknown Rx Lidocaine Viscous 2% 10 ml MM DAILY PRN #120 udc 12/20/20 01/04/21 Unknown Rx Apixaban [Eliquis starter pack] 5 mg PO BID #60 tab.ds.pk 01/04/21 Unknown Rx Metoclopramide [Reglan] 10 mg PO ACHS #120 tablet 01/12/21 Unknown Rx ED Physical Exam - General Limitations: No Limitations, Other ( pulse ox was noted and normal. She is not hypoxic.) General appearance: alert, anxious - Head Head exam: Present: atraumatic, normocephalic - Eye Eye exam: Present: normal appearance, EOMI. Absent: scleral icterus - ENT ENT exam: Present: normal exam, normal orophraynx, normal external ear exam - Neck Neck exam: Absent: meningismus - Respiratory Respiratory exam: Present: normal lung sounds bilaterally. Absent: respiratory distress - Cardiovascular Cardiovascular Exam: Present: regular rate, normal rhythm - GI/Abdominal GI/Abdominal exam: Present: soft. Absent: distended, tenderness - Extremities Exam Extremities exam: Present: normal capillary refill - Back Exam Back exam: Present: full ROM - Neurological Exam Neurological exam: Present: alert, oriented X3, CN II-XII intact. Absent: motor sensory deficit - Psychiatric Psychiatric exam: Present: normal affect, normal mood - Skin Skin exam: Present: warm, dry ED Course - Reevaluation(s) Reevaluation #1: 01/12/21 14:45 Old records reviewed. ED Medical Decision Making - Medical Decision Making Patient presents with complaints relating to her left arm and problems eating. Symptoms are subacute. There is nothing about her left arm pain that seems to be related to ACS. There is no trauma. There is no deformity. There is no warmth erythema. I do not believe lab work or imaging are indicated. Patient has no evidence of DVT or cellulitis. I certainly do not believe this is referred pain from cardiac source. Patient also complained of some fluttering sensation in the inability to eat solid food because she feels as though that it gets stuck. She may benefit from endoscopy. She is handling her own secretions. She is clinically not dehydrated. There is no indication for emergent CT. She certainly does not require any other emergent intervention. Patient was referred to GI for follow-up as well as her PCP. Critical Care Time: No Critical care attestation.: If time is entered above; I have spent that time in minutes in the direct care of this critically ill patient, excluding procedure time. ED Disposition Clinical Impression: Left upper arm pain Dysphagia Qualifiers: Dysphagia type: esophageal phase Qualified Code(s): R13.19 - Other dysphagia Disposition: HOME / SELF CARE / HOMELESS Is pt being admited?: No Does the pt Need Aspirin: No Condition: Stable Instructions: Abdominal Pain (ED), Upper Endoscopy, Adult, Dysphagia Eating Plan, Bite Size Food, Pain Without a Known Cause Additional Instructions: Have a soft diet. Drink plenty water. Return for problems. Follow-up with your regular physician for recheck and further management. Follow-up with GI as Referred Prescriptions: Metoclopramide [Reglan] 10 mg PO ACHS #120 tablet Referrals: PRIMARY CARE, [Referring] - 3-5 Days ROMAN JOSHUA MD [Staff Physician] - 3-5 Days [facility] [Provider Group] - 3-5 Days
[2021-01-12 15:08] VITALS: BP 125/75
== END 2021-01-12 15:57 | disposition home or self-care (01) ==
LOC: ED 13:59
DX: R13.10 Dysphagia, unspecified (principal); M79.622 Pain in left upper arm; I10 Essential (primary) hypertension
CPT/HCPCS: 99282

== ENCOUNTER 2021-01-28 15:16 | Emergency (ER) | payer OTHER ==
--- NOTE | 2021-01-28 16:18 | Emergency Department Report ---
Blank Doc - Documentation Documentation: This is a 30-year-old female that presents with chest pain, left leg pain, fat igue and generalized aches. Patient has history of taking Eliquis for history of PE which her PCP took her off. 1- This is a initial triage assessment/medical screening only. Full assessment and work-up will be completed once the patient is in proper hospital gown, ED bed and in a private room setting. This initial assessment/diagnostic orders/clinical plan/ treatment(s) is/are subject to change based on pt's health status, clinical progression and re-assessment by fellow clinical providers in the ED. Further treatment and workup at subsequent clinical providers discretion. Patient/guardians urged not to elope from ED as their condition may be serious if not clinically assessed and managed. 2-cardiac work-up 3-Doppler ultrasound bilateral legs The patient was evaluated in the emergency department for symptoms described in the history of present illness. He/she was evaluated in the context of the global COVID-19 pandemic, which necessitated consideration that the patient might be at risk for infection with the virus that causes COVID-19. Institutional protocols and algorithms that pertain to the evaluation of patients at risk for COVID-19 are in a state of rapid change based on information released by regulatory bodies including the CDC and federal and state organizations. These policies and algorithms were followed during the patient's care in the emergency department. Please note that these policies, procedures and recommendations changed on a rapid basis.
[2021-01-28 16:54] LABS: Basophils % (Auto) 0.9 % (0.0-1.8); Eosinophils # (Auto) 0.1 K/mm3 (0.0-0.4); Eosinophils % (Auto) 1.2 % (0.0-4.3); Hematocrit 33.3 % (30.3-42.9); Hemoglobin 10.8 gm/dl (10.1-14.3); Lymphocytes % (Auto) 42.9 % (13.4-35.0); Mean Corpuscular HGB Conc 32 % (30-34); Mean Corpuscular Volume 84 fl (79-97); Monocytes # (Auto) 0.3 K/mm3 (0.0-0.8); Monocytes % (Auto) 6.2 % (0.0-7.3); Platelet Count 289 K/mm3 (140-440); Red Blood Count 3.96 M/mm3 (3.65-5.03); Red Cell Distribution Width 15.3 % (13.2-15.2)
[2021-01-28 17:06] LABS: INR 1.17 (0.87-1.13)
[2021-01-28 17:07] LABS: Partial Thromboplastin Time 40.4 Sec. (24.2-36.6)
--- NOTE | 2021-01-28 17:08 | Vascular Lab Report ---
DUPLEX DOPPLER LOWER EXTREMITY VEINS, BILATERAL INDICATION / CLINICAL INFORMATION: Bilateral leg pain. TECHNIQUE: Duplex doppler imaging was performed through the veins of both lower extremities using venous celsa kadie and other maneuvers. COMPARISON: None available. FINDINGS: RIGHT COMMON FEMORAL VEIN: Negative. RIGHT FEMORAL VEIN: Negative. RIGHT POPLITEAL VEIN: Negative. RIGHT CALF VEINS: Negative. LEFT COMMON FEMORAL VEIN: Negative. LEFT FEMORAL VEIN: Negative. LEFT POPLITEAL VEIN: Negative. LEFT CALF VEINS: Negative. ADDITIONAL FINDINGS: No abnormal mass or fluid collection is seen IMPRESSION: No sonographic evidence for DVT in either lower extremity. Signer Name: Moose Louise MD Signed: 01/28/2021 5:03 PM Workstation Name: [id number]
[2021-01-28 17:10] LABS: BUN/Creatinine Ratio TNR; Blood Urea Nitrogen TNR mg/dL (7-17); Calcium TNR mg/dL (8.4-10.2)
[2021-01-28 17:11] LABS: Alanine Aminotransferase TNR units/L (7-56); Albumin TNR g/dL (3.9-5); Hemolysis Index TNR
--- NOTE | 2021-01-28 17:26 | XRay Report ---
CHEST 2 VIEWS INDICATION / CLINICAL INFORMATION: Chest Pain. COMPARISON: 01/07/21. FINDINGS: SUPPORT DEVICES: None. HEART / MEDIASTINUM: The heart size and pulmonary vasculature are normal. The aorta is normal in nina crystal. LUNGS / PLEURA: No significant pulmonary or pleural abnormality. No pneumothorax. ADDITIONAL FINDINGS: No significant additional findings. IMPRESSION: No acute abnormality or significant change. Signer Name: Moose Louise MD Signed: 01/28/2021 5:22 PM Workstation Name: [id number]
[2021-01-28 20:00] LABS: Alanine Aminotransferase 13 units/L (7-56); Albumin 4.5 g/dL (3.9-5); Blood Urea Nitrogen 6 mg/dL (7-17); Calcium 9.4 mg/dL (8.4-10.2); Hemolysis Index 119
[2021-01-28 20:03] LABS: BUN/Creatinine Ratio 12
--- NOTE | 2021-01-28 20:57 | Emergency Department Report ---
ED General Adult HPI - General Chief complaint: Extremity Problem,Nontraumatic Stated complaint: LEG PAIN Time Seen by Provider: 01/28/21 16:15 Source: patient Mode of arrival: Ambulatory Limitations: No Limitations - History of Present Illness Initial comments: Patient presents emergency department the chief complaint of bilateral lower extremity pain that has been present for the last 1 to 2 days. Patient states she was seen here within the last 2 to 3 weeks and was diagnosed with a pulmonary embolus and started on Eliquis. Patient states she followed by [facility] where they repeated her CT of the chest which was negative for pulmonary embolus. She said at that time she was told to stop Eliquis. Patient does report mild shortness of breath with exertion. -: Gradual Location: chest, lower extremity Radiation: non-radiation Severity scale (0 -10): 3 Quality: aching Consistency: constant Improves with: rest Worsens with: movement Associated Symptoms: denies other symptoms Treatments Prior to Arrival: none - Related Data Previous Rx's Medication Instructions Recorded Last Taken Type Ibuprofen [Motrin 800 MG tab] 800 mg PO Q8HR PRN #20 tablet 09/28/15 Unknown Rx Ibuprofen [Motrin] 800 mg PO Q8HR PRN #15 tablet 03/23/16 Unknown Rx Ibuprofen [Motrin] 600 mg PO Q8H PRN #24 tablet 03/23/19 Unknown Rx Lidocaine Viscous 2% 10 ml MM DAILY PRN #120 udc 12/20/20 Unknown Rx Apixaban [Eliquis starter pack] 5 mg PO BID #60 tab.ds.pk 01/04/21 Unknown Rx Metoclopramide [Reglan] 10 mg PO ACHS #120 tablet 01/12/21 Unknown Rx Allergies Allergy/AdvReac Type Severity Reaction Status Date / Time No Known Allergies Allergy Verified 12/27/20 10:13 ED Review of Systems ROS: Stated complaint: LEG PAIN Other details as noted in HPI Comment: All other systems reviewed and negative Constitutional: denies: chills, fever Eyes: denies: eye pain, eye discharge, vision change ENT: denies: ear pain, throat pain Respiratory: denies: cough, shortness of breath, wheezing Cardiovascular: chest pain. denies: palpitations Endocrine: no symptoms reported Gastrointestinal: denies: abdominal pain, nausea, diarrhea Genitourinary: denies: urgency, dysuria, discharge Musculoskeletal: denies: back pain, joint swelling, arthralgia Skin: denies: rash, lesions Neurological: denies: headache, weakness, paresthesias Psychiatric: denies: anxiety, depression Hematological/Lymphatic: denies: easy bleeding, easy bruising ED Past Medical Hx - Past Medical History Hx Hypertension: Yes (with eclampsia) Hx Diabetes: No Hx Deep Vein Thrombosis: No Hx Renal Disease: No Hx Sickle Cell Disease: No Hx Seizures: No Hx Asthma: No Hx HIV: No Additional medical history: heart murmur. eclampsia. pericarditis - Surgical History Additional Surgical History: TUBAL LIGATION - Social History Smoking Status: Never Smoker Substance Use Type: None - Medications Home Medications: Home Medications Medication Instructions Recorded Confirmed Last Taken Type Ibuprofen [Motrin 800 MG tab] 800 mg PO Q8HR PRN #20 tablet 09/28/15 01/04/21 Unknown Rx Ibuprofen [Motrin] 800 mg PO Q8HR PRN #15 tablet 03/23/16 01/04/21 Unknown Rx Ibuprofen [Motrin] 600 mg PO Q8H PRN #24 tablet 03/23/19 01/04/21 Unknown Rx Lidocaine Viscous 2% 10 ml MM DAILY PRN #120 udc 12/20/20 01/04/21 Unknown Rx Apixaban [Eliquis starter pack] 5 mg PO BID #60 tab.ds.pk 01/04/21 Unknown Rx Metoclopramide [Reglan] 10 mg PO ACHS #120 tablet 01/12/21 Unknown Rx ED Physical Exam - General Limitations: No Limitations General appearance: alert, in no apparent distress - Head Head exam: Present: atraumatic, normocephalic - Eye Eye exam: Present: normal appearance, PERRL, EOMI - ENT ENT exam: Present: mucous membranes moist - Neck Neck exam: Present: normal inspection - Respiratory Respiratory exam: Present: normal lung sounds bilaterally. Absent: respiratory distress - Cardiovascular Cardiovascular Exam: Present: regular rate, normal rhythm. Absent: systolic murmur, diastolic murmur, rubs, gallop - GI/Abdominal GI/Abdominal exam: Present: soft, normal bowel sounds. Absent: distended, tenderness - Extremities Exam Extremities exam: Present: normal inspection - Back Exam Back exam: Present: normal inspection - Neurological Exam Neurological exam: Present: alert, oriented X3. Absent: CN II-XII intact, motor sensory deficit - Psychiatric Psychiatric exam: Present: normal affect, normal mood - Skin Skin exam: Present: warm, dry, intact, normal color. Absent: rash ED Course Vital Signs 01/28/21 16:07 Temperature 97.7 F Pulse Rate 76 Respiratory 18 Rate Blood Pressure 141/87 O2 Sat by Pulse 99 Oximetry ED Medical Decision Making - Lab Data Result diagrams: 01/28/21 16:20 01/28/21 19:14 Lab Results 01/28/21 01/28/21 01/28/21 Range/Units 16:20 16:20 16:20 WBC 4.6 (4.5-11.0) K/mm3 RBC 3.96 (3.65-5.03) M/mm3 Hgb 10.8 (10.1-14.3) gm/dl Hct 33.3 (30.3-42.9) % MCV 84 (79-97) fl MCH 27 L (28-32) pg MCHC 32 (30-34) % RDW 15.3 H (13.2-15.2) % Plt Count 289 (140-440) K/mm3 Lymph % (Auto) 42.9 H (13.4-35.0) % [place] % (Auto) 6.2 (0.0-7.3) % Eos % (Auto) 1.2 (0.0-4.3) % Baso % (Auto) 0.9 (0.0-1.8) % Lymph # (Auto) 2.0 (1.2-5.4) K/mm3 [place] # (Auto) 0.3 (0.0-0.8) K/mm3 Eos # (Auto) 0.1 (0.0-0.4) K/mm3 Baso # (Auto) 0.0 (0.0-0.1) K/mm3 Seg Neutrophils % 48.8 (40.0-70.0) % Seg Neutrophils # 2.3 (1.8-7.7) K/mm3 PT (12.2-14.9) Sec. INR (0.87-1.13) APTT (24.2-36.6) Sec. Sodium TNR Potassium TNR Chloride TNR Carbon Dioxide TNR Anion Gap TNR BUN TNR Creatinine TNR Estimated GFR TNR BUN/Creatinine Ratio TNR Glucose TNR Calcium TNR Magnesium (1.7-2.3) mg/dL Total Bilirubin TNR AST TNR ALT TNR Alkaline Phosphatase TNR Troponin T TNR Total Protein TNR Albumin TNR Albumin/Globulin Ratio TNR HCG, Qual Negative (Negative) 01/28/21 01/28/21 01/28/21 Range/Units 16:20 16:20 19:14 WBC (4.5-11.0) K/mm3 RBC (3.65-5.03) M/mm3 Hgb (10.1-14.3) gm/dl Hct (30.3-42.9) % MCV (79-97) fl MCH (28-32) pg MCHC (30-34) % RDW (13.2-15.2) % Plt Count (140-440) K/mm3 Lymph % (Auto) (13.4-35.0) % [place] % (Auto) (0.0-7.3) % Eos % (Auto) (0.0-4.3) % Baso % (Auto) (0.0-1.8) % Lymph # (Auto) (1.2-5.4) K/mm3 [place] # (Auto) (0.0-0.8) K/mm3 Eos # (Auto) (0.0-0.4) K/mm3 Baso # (Auto) (0.0-0.1) K/mm3 Seg Neutrophils % (40.0-70.0) % Seg Neutrophils # (1.8-7.7) K/mm3 PT 16.2 H (12.2-14.9) Sec. INR 1.17 H (0.87-1.13) APTT 40.4 H (24.2-36.6) Sec. Sodium Potassium Chloride Carbon Dioxide Anion Gap BUN Creatinine Estimated GFR BUN/Creatinine Ratio Glucose Calcium Magnesium 2.00 (1.7-2.3) mg/dL Total Bilirubin AST ALT Alkaline Phosphatase Troponin T < 0.010 Total Protein Albumin Albumin/Globulin Ratio HCG, Qual (Negative) 01/28/21 Range/Units 19:14 WBC (4.5-11.0) K/mm3 RBC (3.65-5.03) M/mm3 Hgb (10.1-14.3) gm/dl Hct (30.3-42.9) % MCV (79-97) fl MCH (28-32) pg MCHC (30-34) % RDW (13.2-15.2) % Plt Count (140-440) K/mm3 Lymph % (Auto) (13.4-35.0) % [place] % (Auto) (0.0-7.3) % Eos % (Auto) (0.0-4.3) % Baso % (Auto) (0.0-1.8) % Lymph # (Auto) (1.2-5.4) K/mm3 [place] # (Auto) (0.0-0.8) K/mm3 Eos # (Auto) (0.0-0.4) K/mm3 Baso # (Auto) (0.0-0.1) K/mm3 Seg Neutrophils % (40.0-70.0) % Seg Neutrophils # (1.8-7.7) K/mm3 PT (12.2-14.9) Sec. INR (0.87-1.13) APTT (24.2-36.6) Sec. Sodium 140 Potassium 4.1 Chloride 106.8 Carbon Dioxide 23 Anion Gap 14 BUN 6 L Creatinine 0.5 L Estimated GFR > 60 BUN/Creatinine Ratio 12 Glucose 125 H Calcium 9.4 Magnesium (1.7-2.3) mg/dL Total Bilirubin 0.40 AST 22 ALT 13 Alkaline Phosphatase 64 Troponin T Total Protein 7.6 Albumin 4.5 Albumin/Globulin Ratio 1.5 HCG, Qual (Negative) - EKG Data -: EKG Interpreted by Me EKG shows normal: sinus rhythm Rate: normal - Radiology Data Radiology results: report reviewed - Medical Decision Making Results discussed with patient Critical care attestation.: If time is entered above; I have spent that time in minutes in the direct care of this critically ill patient, excluding procedure time. ED Disposition Clinical Impression: Leg pain, Pleurisy Disposition: 01 HOME / SELF CARE / HOMELESS Is pt being admited?: No Does the pt Need Aspirin: No Condition: Stable Instructions: Pleurisy Additional Instructions: Please continue to take Eliquis and to have anticoagulation study done by outpatient physician Referrals: TRISHA HARRY MD [Primary Care Provider] - 3-5 Days JADE KATHLEEN MD [Staff Physician] - 3-5 Days Time of Disposition: 21:41
--- NOTE | 2021-01-28 21:36 | Cat Scan Report ---
CTA CHEST WITH CONTRAST INDICATION / CLINICAL INFORMATION: chest pain h/o PE. TECHNIQUE: Axial CT images were obtained through the chest after injection of IV contrast. 3 plane NM P and/or 3D reconstructions were produced. All CT scans at this location are performed using CT dose reduction for ALARA by means of automated exposure control. COMPARISON: 01/03/2021 FINDINGS: Examination is moderately degraded secondary to patient respiratory motion. PULMONARY ARTERIES: No pulmonary emboli to the level of the lobar pulmonary arteries. THORACIC AORTA: No significant abnormality. HEART: No significant abnormality. CORONARY ARTERY CALCIFICATION: None. MEDIASTINUM / BULL: No significant abnormality. PLEURA: No pleural effusion. No pneumothorax. LUNGS: No acute air space or interstitial disease. ADDITIONAL FINDINGS: None. UPPER ABDOMEN: No acute findings. SKELETAL STRUCTURES: No significant osseous abnormality. IMPRESSION: 1. Examination is moderately degraded secondary to patient respiratory motion. No evidence of pulmona ry thromboembolism to the level of the lobar pulmonary arteries. 2. No acute findings. Signer Name: Corbin Guzmán MD Signed: 01/28/2021 9:32 PM Workstation Name: [id number]
[2021-01-28 21:39] LABS: Bilirubin,Urine NEG (Negative); Blood,Urine NEG (Negative); Color,Urine Straw (Yellow); Mucus,Urine FEW /HPF; Protein,Urine <15 mg/dL mg/dL (Negative); RBC,Urine < 1.0 /HPF (0.0-6.0); Urobilinogen,Urine < 2.0 mg/dL (<2.0)
[2021-01-28 22:00] VITALS: BP 135/87
--- NOTE | 2021-02-05 10:19 | Electrocardiograph Report ---
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
== END 2021-01-28 21:59 | disposition home or self-care (01) ==
LOC: ED 15:16
DX: M79.604 Pain in right leg (principal); M79.605 Pain in left leg; R09.1 Pleurisy; I10 Essential (primary) hypertension; R01.1 Cardiac murmur, unspecified; I31.9 Disease of pericardium, unspecified; Z98.890 Other specified postprocedural states
CPT/HCPCS: 36415; 71046; 71275; 80053; 81001; 83735; 84484; 84703; 85025; 85610; 85730; 93005; 93970; 99284; Q9967

== ENCOUNTER 2021-02-10 20:42 | Emergency (ER) | payer OTHER ==
[2021-02-11 00:48] LABS: Basophils % (Auto) 0.2 % (0.0-1.8); Eosinophils # (Auto) 0.1 K/mm3 (0.0-0.4); Eosinophils % (Auto) 1.7 % (0.0-4.3); Hemoglobin 11.3 gm/dl (10.1-14.3); Lymphocytes # (Auto) 2.2 K/mm3 (1.2-5.4); Lymphocytes % (Auto) 39.4 % (13.4-35.0); Mean Corpuscular HGB Conc 32 % (30-34); Mean Corpuscular Volume 83 fl (79-97); Monocytes # (Auto) 0.5 K/mm3 (0.0-0.8); Monocytes % (Auto) 8.4 % (0.0-7.3); Platelet Count 228 K/mm3 (140-440); Red Blood Count 4.21 M/mm3 (3.65-5.03)
[2021-02-11 01:12] LABS: Alanine Aminotransferase 12 units/L (7-56); Albumin 4.6 g/dL (3.9-5); Blood Urea Nitrogen 13 mg/dL (7-17); Calcium 9.2 mg/dL (8.4-10.2); Hemolysis Index 4
[2021-02-11 01:13] LABS: BUN/Creatinine Ratio 22
--- NOTE | 2021-02-11 01:20 | Emergency Department Report ---
ED Chest Pain HPI - General Chief Complaint: Chest Pain Stated Complaint: FEEL SHAKEY/CHEST DISCOMFORT Source: patient Mode of arrival: Ambulatory Limitations: No Limitations - History of Present Illness Initial Comments: Patient is a 30-year-old -Lithuanian female with a recent history of pulmonary embolism over 1 month ago and who is currently on Eliquis 5 mg daily as an anticoagulant presents to the ED with acute onset chest pressure and tightness after heavy lifting at work about 2 days ago and worsening in the last 6 hours with elevated heart rate and palpitations when climbing stairs at home about 4 to 6 hours ago. Patient states that she was worried that she may be having another bout of PE and wanted to be evaluated. Patient denies dizziness, syncope, nausea and vomiting, cough, shortness of breath, fever, chills, abdominal pain, diarrhea, dysuria, urinary frequency and urgency, neck pain, headache, seizures or change in vision. MD Complaint: chest pain (Chest tightness after heavy lifting), other (Palpitations after climbing stairs) -: Sudden, hour(s) (6) Onset: during exertion, awoke with symptoms Pain Location: substernal Pain Radiation: none Severity: mild Severity scale (0 -10): 2 Quality: tightness Consistency: intermittent Improves With: nothing Worsens With: exertion, palpation, movement Context: recent illness (Recently diagnosed with pulmonary embolism over 1 month ago, currently on Eliquis 5 mg daily), other (Recent heavy lifting at work) re: denies: nausea, vomting, diaphoresis, dyspnea, sense of impending doom Other Symptoms: palpitations. denies: cough, syncope, rash, acid taste in mouth, leg swelling, burping Treatments Prior to Arrival: none - Related Data On Oral Contraceptives: No Previous Rx's Medication Instructions Recorded Last Taken Type Ibuprofen [Motrin 800 MG tab] 800 mg PO Q8HR PRN #20 tablet 09/28/15 Unknown Rx Ibuprofen [Motrin] 800 mg PO Q8HR PRN #15 tablet 03/23/16 Unknown Rx Ibuprofen [Motrin] 600 mg PO Q8H PRN #24 tablet 03/23/19 Unknown Rx Lidocaine Viscous 2% 10 ml MM DAILY PRN #120 udc 12/20/20 Unknown Rx Apixaban [Eliquis starter pack] 5 mg PO BID #60 tab.ds.pk 01/04/21 Unknown Rx Metoclopramide [Reglan] 10 mg PO ACHS #120 tablet 01/12/21 Unknown Rx Allergies Allergy/AdvReac Type Severity Reaction Status Date / Time No Known Allergies Allergy Verified 12/27/20 10:13 Heart Score - HEART Score History: Slightly suspicious EKG: Normal Age: < 45 Risk factors: No known risk factors Troponin: < normal limit HEART Score: 0 - EKG Read Time Time EKG Completed: 04:00 EKG Read Time: 04:10 - Critical Actions Critical Actions: 0-3 pts:0.9-1.7%risk of adverse cardiac event.Candidate for discharge ED Review of Systems ROS: Stated complaint: FEEL SHAKEY/CHEST DISCOMFORT Other details as noted in HPI Constitutional: denies: chills, fever Eyes: denies: eye pain, eye discharge, vision change ENT: denies: ear pain, throat pain Respiratory: denies: cough, shortness of breath, wheezing Cardiovascular: chest pain, palpitations Endocrine: no symptoms reported Gastrointestinal: denies: abdominal pain, nausea, diarrhea Genitourinary: denies: urgency, dysuria, discharge Musculoskeletal: denies: back pain, joint swelling, arthralgia Skin: denies: rash, lesions Neurological: denies: headache, weakness, paresthesias Psychiatric: denies: anxiety, depression Hematological/Lymphatic: denies: easy bleeding, easy bruising ED Past Medical Hx - Past Medical History Hx Hypertension: Yes (with eclampsia) Hx Diabetes: No Hx Deep Vein Thrombosis: No Hx Renal Disease: No Hx Sickle Cell Disease: No Hx Seizures: No Hx Asthma: No Hx HIV: No Additional medical history: PE,heart murmur. eclampsia. pericarditis - Surgical History Past Surgical History?: Yes Additional Surgical History: TUBAL LIGATION - Social History Smoking Status: Never Smoker Substance Use Type: None - Medications Home Medications: Home Medications Medication Instructions Recorded Confirmed Last Taken Type Ibuprofen [Motrin 800 MG tab] 800 mg PO Q8HR PRN #20 tablet 09/28/15 01/04/21 Unknown Rx Ibuprofen [Motrin] 800 mg PO Q8HR PRN #15 tablet 03/23/16 01/04/21 Unknown Rx Ibuprofen [Motrin] 600 mg PO Q8H PRN #24 tablet 03/23/19 01/04/21 Unknown Rx Lidocaine Viscous 2% 10 ml MM DAILY PRN #120 udc 12/20/20 01/04/21 Unknown Rx Apixaban [Eliquis starter pack] 5 mg PO BID #60 tab.ds.pk 01/04/21 Unknown Rx Metoclopramide [Reglan] 10 mg PO ACHS #120 tablet 01/12/21 Unknown Rx ED Physical Exam - General Limitations: No Limitations General appearance: alert, in no apparent distress - Head Head exam: Present: atraumatic, normocephalic, normal inspection - Eye Eye exam: Present: normal appearance, PERRL, EOMI Pupils: Present: normal accommodation - ENT ENT exam: Present: normal exam, normal orophraynx, mucous membranes moist, TM's normal bilaterally, normal external ear exam - Neck Neck exam: Present: normal inspection, full ROM - Respiratory Respiratory exam: Present: normal lung sounds bilaterally, chest wall tenderness (Palpable diffuse reproducible chest wall tenderness). Absent: respiratory distress, wheezes, rales, rhonchi, accessory muscle use, decreased breath sounds, prolonged expiratory - Cardiovascular Cardiovascular Exam: Present: regular rate, normal rhythm, normal heart sounds. Absent: systolic murmur, diastolic murmur, rubs, gallop - GI/Abdominal GI/Abdominal exam: Present: soft, normal bowel sounds. Absent: tenderness, guarding, rebound, hyperactive bowel sounds, hypoactive bowel sounds, organomegaly - Extremities Exam Extremities exam: Present: normal inspection, full ROM, normal capillary refill - Back Exam Back exam: Present: normal inspection, full ROM. Absent: tenderness, CVA tenderness (R), CVA tenderness (L), muscle spasm, paraspinal tenderness - Neurological Exam Neurological exam: Present: alert, oriented X3, CN II-XII intact, normal gait, reflexes normal - Psychiatric Psychiatric exam: Present: normal affect, normal mood, anxious - Skin Skin exam: Present: warm, dry, intact, normal color. Absent: rash ED Course Vital Signs 02/10/21 21:56 Temperature 98.8 F Pulse Rate 82 Respiratory 16 Rate Blood Pressure 122/73 O2 Sat by Pulse 99 Oximetry CHAMP score - Champ Score Age > 65: (0) No Aspirin use within the Past 7 Days: (0) No 3 or more CAD Risk Factors: (0) No 2 or more Angina events in past 24 hrs: (0) No Known CAD with more than 50% Stenosis: (0) No Elevated Cardiac Markers: (0) No ST Deviation Greater than 0.5mm: (0) No CHAMP Score: 0 ED Medical Decision Making - Lab Data Result diagrams: 02/11/21 00:34 02/11/21 00:34 - EKG Data EKG shows normal: sinus rhythm Rate: normal - EKG Data Interpretation: normal EKG 02/11/21 04:12 EKG shows normal sinus rhythm with a ventricular rate of [address] or T wave abnormalities. - Radiology Data Radiology results: report reviewed, image reviewed [facility] [address] [place] [address] Cat Scan Report Signed Patient: VIANNEY YAÑEZ MR#: [id number] : 1990 Acct:[id number] Age/Sex: 30 / F ADM Date: 02/10/21 Loc: ED Attending Dr: Ordering Physician: KIKE ANTOINE Date of Service: 02/11/21 Procedure(s): CT angio chest Accession Number(s): [id number] cc: KIKE ANTOINE CTA CHEST WITH CONTRAST INDICATION / CLINICAL INFORMATION: Chest pain, Hx of prior P.E. x 1 month ago.. TECHNIQUE: Axial CT images were obtained through the chest after injection of IV contrast. 3 plane MIP and/or 3D reconstructions were produced. All CT scans at this location are performed using CT dose reduction for ALARA by means of automated exposure control. COMPARISON: 01/28/2021 FINDINGS: The main pulmonary arteries are patent without filling defect. Contrast bolus timing is slightly suboptimal and peripheral pulmonary arteries are not well seen. Chronic interstitial change within the lungs. No focal area of opacity or pleural effusion no pneumothorax. ADDITIONAL FINDINGS: None. UPPER ABDOMEN: No acute findings. SKELETAL STRUCTURES: No significant osseous abnormality. IMPRESSION: 1. No central PTE is identified. The segmental and peripheral pulmonary arterie s visualized appear patent. Contrast bolus timing is slightly suboptimal. 2. No acute findings. Signer Name: Norberto Blackman MD Signed: 02/11/2021 2:48 AM Workstation Name: [id number] Transcribed By: CW Dictated By: GRAY BLACKMAN MD Electronically Authenticated By: GRAY BLACKMAN MD Signed Date/Time: 10/247 DD/ 5 TD/TT: - Medical Decision Making This is a 30-year-old -Lithuanian female with a recent history of pulmonary embolism over 1 month ago and who is currently on Eliquis 5 mg daily as an anticoagulant presents to the ED with acute onset chest pressure and tightness after heavy lifting at work about 2 days ago and worsening in the last 6 hours with elevated heart rate and palpitations when climbing stairs at home about 4 to 6 hours ago. Patient states that she was worried that she may be having another bout of PE and wanted to be evaluated. In the ED, patient is alert and oriented x3 and is not in any distress. The EKG shows normal sinus rhythm with a ventricular rate of [address] or T wave abnormalities. Lab test results were reviewed and are all nonactionable. Given the face patient's history of previous PE over 1 month ago, CTA chest was ordered the report showed no central PTE is identified. The segmental and peripheral pulmonary arteries visualized appear patent. Contrast bolus timing is slightly suboptimal. No acute findings. Patient has no cardiac risk factors. Patient was therefore discharged home and advised to take Tylenol as needed for pain and to follow-up with her primary care physician in 5 to 7 days for reevaluation. Patient was a dvised to return to the ED immediately if symptoms get worse. - Differential Diagnosis PE, pneumonia, ACS, pleural effusion, costochondritis; anxiety Critical care attestation.: If time is entered above; I have spent that time in minutes in the direct care of this critically ill patient, excluding procedure time. ED Disposition Clinical Impression: Acute nonspecific chest pain with low risk of coronary artery disease, Acute costochondritis, Muscle strain of anterior chest wall Disposition: 01 HOME / SELF CARE / HOMELESS Is pt being admited?: No Does the pt Need Aspirin: No Condition: Stable Instructions: Costochondritis, [id number], Muscle Strain, [id number], Nonspecific Chest Pain, Adult, [id number], Chest Pain (ED) Additional Instructions: All lab test results were reviewed and are all nonactionable. Chest CT angiogram with contrast showed no evidence of pulmonary embolism or any other acute abnormalities. Therefore your symptoms are likely musculoskeletal in etiology following heavy lifting at work. Therefore take medications with food, drink plenty of fluids and follow-up with your primary care physician in 5 to 7 days for reevaluation. Return to the ED immediately if symptoms get worse. Referrals: [facility] [Provider Group] - 3-5 Days Forms: Work/School Release Form(ED) Time of Disposition: 03:48 Print Language: ARABIC
--- NOTE | 2021-02-11 02:53 | Cat Scan Report ---
CTA CHEST WITH CONTRAST INDICATION / CLINICAL INFORMATION: Chest pain, Hx of prior P.E. x 1 month ago.. TECHNIQUE: Axial CT images were obtained through the chest after injection of IV contrast. 3 plane MT P and/or 3D reconstructions were produced. All CT scans at this location are performed using CT dose reduction for ALARA by means of automated exposure control. COMPARISON: 01/28/2021 FINDINGS: The main pulmonary arteries are patent without filling defect. Contrast bolus timing is slightly subo ptimal and peripheral pulmonary arteries are not well seen. Chronic interstitial change within the maxine ngs. No focal area of opacity or pleural effusion no pneumothorax. ADDITIONAL FINDINGS: None. UPPER ABDOMEN: No acute findings. SKELETAL STRUCTURES: No significant osseous abnormality. IMPRESSION: 1. No central PTE is identified. The segmental and peripheral pulmonary arteries visualized appear pa tent. Contrast bolus timing is slightly suboptimal. 2. No acute findings. Signer Name: Norberto Westfall MD Signed: 02/11/2021 2:48 AM Workstation Name: [id number]
[2021-02-11 04:15] VITALS: BP 126/70
--- NOTE | 2021-02-11 19:16 | Electrocardiograph Report ---
[facility] Test Date: 2021-02-11 Test Time: 04:06:02 Pat Name: VIANNEY YAÑEZ Department: Room: Gender: F Acquisition Analyst: KHURRAM : 1990 Requested By: LD MCDANIEL Order Number: [id number] Reading MD: Edilia Richardson Measurements Intervals [place] Rate: 75 P: 29 RI: 180 QRS: 56 QRSD: 79 T: 55 QT: 375 QTc: 419 Interpretive Statements Sinus rhythm Compared to ECG 01/28/2021 16:24:37 No significant changes Electronically Signed On 02-11-2021 19:16:12 EDT by Edilia Richardson
== END 2021-02-11 04:19 | disposition home or self-care (01) ==
LOC: ED 20:42
DX: S29.011A Strain of muscle and tendon of front wall of thorax, initial encounter (principal); M94.0 Chondrocostal junction syndrome [Tietze]; I10 Essential (primary) hypertension; Z98.51 Tubal ligation status; Z79.899 Other long term (current) drug therapy; X58.XXXA Exposure to other specified factors, initial encounter; Y93.89 Activity, other specified; Y92.89 Other specified places as the place of occurrence of the external cause; Y99.8 Other external cause status
CPT/HCPCS: 36415; 71275; 80053; 84484; 85025; 93005; 99284; Q9967

== ENCOUNTER 2021-02-22 11:09 | Emergency (ER) | payer OTHER ==
[2021-02-22 11:29] VITALS: BP 126/78
--- NOTE | 2021-02-22 11:40 | Emergency Department Report ---
ED General Adult HPI - General Chief complaint: Medical Clearance Stated complaint: CHEST PAIN,MEDS Time Seen by Provider: 02/22/21 11:31 Source: patient Mode of arrival: Ambulatory Limitations: No Limitations - History of Present Illness Initial comments: Patient is a 30-year-old female presents emergency room stating that she wants a refill of Eliquis. Patient was evaluated in the emergency department in December and diagnosed with a possible subsegmental PE versus motion artifact and was prescribed Eliquis. Patient was evaluated in the emergency department on 02/10/21 and had a CTA of the chest performed at that time which showed no central PE. She states that she went to [facility] yesterday 02/21/2021 and they are going to do a hypercoagulable work-up on Wednesday02/24/21. She states that [facility] prescribed her the Eliquis but she needs a preauthorization for her insurance company. she states that she is presents here due to wanting the Eliquis. She is not currently symptomatic at this time. No allergies to medications. - Related Data Previous Rx's Medication Instructions Recorded Last Taken Type Ibuprofen [Motrin 800 MG tab] 800 mg PO Q8HR PRN #20 tablet 09/28/15 Unknown Rx Ibuprofen [Motrin] 800 mg PO Q8HR PRN #15 tablet 03/23/16 Unknown Rx Ibuprofen [Motrin] 600 mg PO Q8H PRN #24 tablet 03/23/19 Unknown Rx Lidocaine Viscous 2% 10 ml MM DAILY PRN #120 udc 12/20/20 Unknown Rx Apixaban [Eliquis starter pack] 5 mg PO BID #60 tab.ds.pk 01/04/21 Unknown Rx Metoclopramide [Reglan] 10 mg PO ACHS #120 tablet 01/12/21 Unknown Rx Allergies Allergy/AdvReac Type Severity Reaction Status Date / Time No Known Allergies Allergy Verified 12/27/20 10:13 ED Review of Systems ROS: Stated complaint: CHEST PAIN,MEDS Other details as noted in HPI Comment: All other systems reviewed and negative ED Past Medical Hx - Past Medical History Previous Medical History?: Yes Hx Hypertension: Yes (with eclampsia) Hx Diabetes: No Hx Deep Vein Thrombosis: No Hx Renal Disease: No Hx Sickle Cell Disease: No Hx Seizures: No Hx Asthma: No Hx HIV: No Additional medical history: PE,heart murmur. eclampsia. pericarditis - Surgical History Past Surgical History?: Yes Additional Surgical History: TUBAL LIGATION - Social History Smoking Status: Never Smoker Substance Use Type: None - Medications Home Medications: Home Medications Medication Instructions Recorded Confirmed Last Taken Type Ibuprofen [Motrin 800 MG tab] 800 mg PO Q8HR PRN #20 tablet 09/28/15 01/04/21 Unknown Rx Ibuprofen [Motrin] 800 mg PO Q8HR PRN #15 tablet 03/23/16 01/04/21 Unknown Rx Ibuprofen [Motrin] 600 mg PO Q8H PRN #24 tablet 03/23/19 01/04/21 Unknown Rx Lidocaine Viscous 2% 10 ml MM DAILY PRN #120 udc 12/20/20 01/04/21 Unknown Rx Apixaban [Eliquis starter pack] 5 mg PO BID #60 tab.ds.pk 01/04/21 Unknown Rx Metoclopramide [Reglan] 10 mg PO ACHS #120 tablet 01/12/21 Unknown Rx ED Physical Exam - General Limitations: No Limitations General appearance: alert, in no apparent distress - Eye Eye exam: Present: normal appearance - ENT ENT exam: Present: mucous membranes moist - Respiratory Respiratory exam: Absent: respiratory distress, accessory muscle use - Neurological Exam Neurological exam: Present: alert, oriented X3 - Psychiatric Psychiatric exam: Present: normal affect, normal mood - Skin Skin exam: Present: warm, dry, intact ED Course Vital Signs 02/22/21 11:27 Temperature 99.1 F Pulse Rate 80 Respiratory 18 Rate Blood Pressure 126/78 O2 Sat by Pulse 100 Oximetry ED Medical Decision Making - Medical Decision Making Patient is a 30-year-old female presents emergency room stating that she wants a refill of Eliquis. Patient was evaluated in the emergency department in December and diagnosed with a possible subsegmental PE versus motion artifact and was prescribed Eliquis. Patient was evaluated in the emergency department on 02/10/21 and had a CTA of the chest performed at that time which showed no central PE. She states that she went to [facility] yesterday 02/21/2021 and they are going to do a hypercoagulable work-up on Wednesday02/24/21. She states that [facility] prescribed her the Eliquis but she needs a preauthorization for her insurance company. she states that she is presents here due to wanting the Eliquis. She is not currently symptomatic at this time. No allergies to medications. Vitals are normal. No tachycardia, no hypoxia. Discussed case with Dr. Michelle Davis, ER attending who evaluated patient at bedside and spoke with patient of the importance of following up outpatient for hypercoagulable work-up to see if she needs to be on anticoagulation, did not recommend prescribing anticoagulation at this time. Advised patient Please keep your appointment with [facility] for Wednesday02/24/21 to get your hypercoagulable work-up to see if you need long-term anticoagulation. Return to emergency room for any new or worsening symptoms. Critical care attestation.: If time is entered above; I have spent that time in minutes in the direct care of this critically ill patient, excluding procedure time. ED Disposition Clinical Impression: General medical examination Disposition: 01 HOME / SELF CARE / HOMELESS Is pt being admited?: No Does the pt Need Aspirin: No Condition: Stable Additional Instructions: Please keep your appointment with [facility] for Wednesday02/24/21 to get your hypercoagulable work-up to see if you need long-term anticoagulation. Return to emergency room for any new or worsening symptoms. Referrals: [facility] [Provider Group] - 2-3 Days Time of Disposition: 11:42 Print Language: BULGARIAN
== END 2021-02-22 12:19 | disposition home or self-care (01) ==
LOC: ED 11:09
DX: R07.9 Chest pain, unspecified (principal); Z76.0 Encounter for issue of repeat prescription; Z00.00 Encounter for general adult medical examination without abnormal findings
CPT/HCPCS: 99281

== ENCOUNTER 2021-02-22 21:09 | Emergency (ER) | payer OTHER ==
--- NOTE | 2021-02-22 21:54 | Emergency Department Report ---
HPI - General Chief Complaint: Chest Pain Time Seen by Provider: 02/22/21 21:29 - HPI HPI: MSE 1 The patient is a 30-year-old female present with a chief complaint of chest pain. Patient is a 30-year-old female presents emergency room stating that she w ants a refill of Eliquis. Patient was evaluated in the emergency department in December and diagnosed with a possible subsegmental PE versus motion artifact and was prescribed Eliquis. The patient was seen in emergency department 01/28/2021 had a CTA of the chest performed which did not reveal evidence of PE. Patient was evaluated in the emergency department on 02/10/21 and had a CTA of the chest performed at that time which showed no central PE. She states that she went to [facility] 02/21/2021 and they are going to do a hypercoagulable work-up on Wednesday02/24/21. She states that [place] prescribed her the Eliquis but she needs a preauthorization for her insurance company. The patient apparently came here earlier in the day to receive Eliquis but was eventually discharged and told to follow-up with her physician tomorrow. Patient returns to the emergency department today stating approximate 1 hour ago while at rest she developed aching pain in her heart that is been constant felt as though her heart skipped a beat. Patient denies shortness of breath, nausea/vomiting or diaphoresis. Patient missed an occasional cough that is nonproductive. Patient denies pleurisy. Patient currently gives her chest pain score 4/10 ED Past Medical Hx - Past Medical History Previous Medical History?: Yes Hx Hypertension: Yes (with eclampsia) Additional medical history: PE-on eliquis ,heart murmur. eclampsia. pericarditis - Surgical History Past Surgical History?: No Additional Surgical History: TUBAL LIGATION - Family History Family history: no significant - Social History Smoking Status: Never Smoker Substance Use Type: None (Denies illicit drug use) - Medications Home Medications: Home Medications Medication Instructions Recorded Confirmed Last Taken Type Ibuprofen [Motrin 800 MG tab] 800 mg PO Q8HR PRN #20 tablet 09/28/15 01/04/21 Unknown Rx Ibuprofen [Motrin] 800 mg PO Q8HR PRN #15 tablet 03/23/16 01/04/21 Unknown Rx Ibuprofen [Motrin] 600 mg PO Q8H PRN #24 tablet 03/23/19 01/04/21 Unknown Rx Lidocaine Viscous 2% 10 ml MM DAILY PRN #120 udc 12/20/20 01/04/21 Unknown Rx Apixaban [Eliquis starter pack] 5 mg PO BID #60 tab.ds.pk 01/04/21 Unknown Rx Metoclopramide [Reglan] 10 mg PO ACHS #120 tablet 01/12/21 Unknown Rx traMADoL [Ultram] 50 mg PO Q6HR PRN #10 tablet 02/22/21 Unknown Rx ED Review of Systems ROS: Stated complaint: CHEST PAIN Other details as noted in HPI Constitutional: fever (Subjective). denies: diaphoresis Eyes: denies: eye pain ENT: denies: throat pain Respiratory: cough. denies: shortness of breath Cardiovascular: chest pain, palpitations Endocrine: no symptoms reported Gastrointestinal: denies: nausea, vomiting Genitourinary: denies: dysuria Musculoskeletal: denies: back pain Neurological: denies: headache Physical Exam - Physical Exam Vital Signs: Vital Signs 02/22/21 02/22/21 21:16 21:25 Temperature 98.6 F Pulse Rate 98 H 93 H Respiratory 18 Rate Blood Pressure 144/91 [Right] O2 Sat by Pulse 100 Oximetry Physical Exam: GENERAL: The patient is well-developed well-nourished female sitting in chair not appearing to be in acute distress. [] HEENT: Normocephalic. Atraumatic. Extraocular motions are intact. Patient has moist mucous membranes. NECK: Supple. Trachea midline CHEST/LUNGS: Clear to auscultation. There is no respiratory distress noted. HEART/CARDIOVASCULAR: Regular. There is no tachycardia. There is no gallop rub or murmur. ABDOMEN: Abdomen is soft, nontender. Patient has normal bowel sounds. There is no abdominal distention. SKIN: There is no rash. There is no edema. There is no diaphoresis. NEURO: The patient is awake, alert, and oriented. The patient is cooperative. GCS 15. The patient has normal speech. MUSCULOSKELETAL: There is no evidence of acute injury. ED Course Vital Signs 02/22/21 02/22/21 21:16 21:25 Temperature 98.6 F Pulse Rate 98 H 93 H Respiratory 18 Rate Blood Pressure 144/91 [Right] O2 Sat by Pulse 100 Oximetry ED Medical Decision Making - Lab Data Result diagrams: 02/22/21 21:55 02/22/21 21:55 Laboratory Tests 02/22/21 02/22/21 02/22/21 21:55 21:55 21:55 WBC 5.9 RBC 3.75 Hgb 10.1 Hct 31.9 MCV 85 MCH 27 L MCHC 32 RDW 15.7 H Plt Count 222 Lymph % (Auto) 29.6 [place] % (Auto) 8.1 H Eos % (Auto) 1.4 Baso % (Auto) 0.4 Lymph # (Auto) 1.7 [place] # (Auto) 0.5 Eos # (Auto) 0.1 Baso # (Auto) 0.0 Seg Neutrophils % 60.5 Seg Neutrophils # 3.6 D-Dimer 189.69 Sodium 141 Potassium 3.7 Chloride 106.1 Carbon Dioxide 25 Anion Gap 14 BUN 10 Creatinine 0.6 Estimated GFR > 60 BUN/Creatinine Ratio 17 Glucose 99 Calcium 9.5 Magnesium 1.80 Total Creatine Kinase 85 CK-MB (CK-2) < 1.0 CK-MB (CK-2) Rel Index 1.1 Troponin T < 0.010 NT-Pro-B Natriuret Pep TSH Free T4 HCG, Qual 02/22/21 02/22/21 02/22/21 21:55 21:55 21:55 WBC RBC Hgb Hct MCV MCH MCHC RDW Plt Count Lymph % (Auto) [place] % (Auto) Eos % (Auto) Baso % (Auto) Lymph # (Auto) [place] # (Auto) Eos # (Auto) Baso # (Auto) Seg Neutrophils % Seg Neutrophils # D-Dimer Sodium Potassium Chloride Carbon Dioxide Anion Gap BUN Creatinine Estimated GFR BUN/Creatinine Ratio Glucose Calcium Magnesium Total Creatine Kinase CK-MB (CK-2) CK-MB (CK-2) Rel Index Troponin T NT-Pro-B Natriuret Pep 9.12 TSH 1.030 Free T4 0.78 HCG, Qual Negative - EKG Data -: EKG Interpreted by Me EKG shows normal: sinus rhythm Rate: normal - EKG Data When compared to previous EKG there are: no significant change Interpretation: unchanged when compared t (02/11/2021), other (No ischemic changes seen) - Radiology Data Radiology results: report reviewed (Chest x-ray), image reviewed (Chest x-ray) interpreted by me: Chest x-ray-no definite focal infiltrates, no pneumothorax [facility] [address] [place] [address] X Ray Report Signed Patient: VIANNEY YAÑEZ MR#: [id number] : 1990 Acct:[id number] Age/Sex: 30 / F ADM Date: 02/22/21 Loc: ED Attending Dr: Ordering Physician: HERNANDEZ KWAN MD Date of Service: 02/22/21 Procedure(s): XR chest routine 2V Accession Number(s): [id number] cc: HERNANDEZ KWAN MD Fluoro Time In Minutes: CHEST 2 VIEWS INDICATION / CLINICAL INFORMATION: chest pain. COMPARISON: 01/28/21 FINDINGS: SUPPORT DEVICES: None. HEART / MEDIASTINUM: No significant abnormality. LUNGS / PLEURA: No significant pulmonary or pleural abnormality. No pneumothorax. ADDITIONAL FINDINGS: No sign ificant additional findings. IMPRESSION: 1. No acute findings. No significant change. Signer Name: Anatoliy Mora MD Signed: 02/22/2021 11:19 PM Workstation Name: [id number] Transcribed By: DT Dictated By: Ashok Mora MD Electronically Authenticated By: Ashok Mora MD Signed Date/Time: 02/22/212318 DD/ 17 TD/TT: Print Cancel - Differential Diagnosis ACS, pericarditis, GERD, PE, anxiety Critical care attestation.: If time is entered above; I have spent that time in minutes in the direct care of this critically ill patient, excluding procedure time. ED Disposition Clinical Impression: Atypical chest pain Disposition: 01 HOME / SELF CARE / HOMELESS Is pt being admited?: No Does the pt Need Aspirin: No Condition: Stable Instructions: Nonspecific Chest Pain, Adult Additional Instructions: Return to the emergency department should you develop worsening symptoms, inability to tolerate food or liquids, high fever or any other concerns Prescriptions: traMADoL [Ultram] 50 mg PO Q6HR PRN #10 tablet PRN Reason: Pain Referrals: PRIMARY CARE, [Primary Care Provider] - MANAS Time of Disposition: 23:50
[2021-02-22 22:05] LABS: Basophils % (Auto) 0.4 % (0.0-1.8); Eosinophils # (Auto) 0.1 K/mm3 (0.0-0.4); Eosinophils % (Auto) 1.4 % (0.0-4.3); Hematocrit 31.9 % (30.3-42.9); Hemoglobin 10.1 gm/dl (10.1-14.3); Lymphocytes # (Auto) 1.7 K/mm3 (1.2-5.4); Lymphocytes % (Auto) 29.6 % (13.4-35.0); Mean Corpuscular HGB Conc 32 % (30-34); Mean Corpuscular Volume 85 fl (79-97); Monocytes # (Auto) 0.5 K/mm3 (0.0-0.8); Monocytes % (Auto) 8.1 % (0.0-7.3); Platelet Count 222 K/mm3 (140-440); Red Blood Count 3.75 M/mm3 (3.65-5.03); Red Cell Distribution Width 15.7 % (13.2-15.2)
[2021-02-22 22:31] VITALS: BP 121/76
[2021-02-22 22:35] LABS: Blood Urea Nitrogen 10 mg/dL (7-17); Calcium 9.5 mg/dL (8.4-10.2); Hemolysis Index 3
[2021-02-22 22:41] LABS: Free T4 (Free Thyroxine) 0.78 ng/dL (0.76-1.46)
[2021-02-22 22:46] LABS: BUN/Creatinine Ratio 17; Creatine Kinase MB < 1.0 ng/mL (0.0-4.0)
--- NOTE | 2021-02-22 23:23 | XRay Report ---
CHEST 2 VIEWS INDICATION / CLINICAL INFORMATION: chest pain. COMPARISON: 01/28/21 FINDINGS: SUPPORT DEVICES: None. HEART / MEDIASTINUM: No significant abnormality. LUNGS / PLEURA: No significant pulmonary or pleural abnormality. No pneumothorax. ADDITIONAL FINDINGS: No significant additional findings. IMPRESSION: 1. No acute findings. No significant change. Signer Name: Anatoliy Mora MD Signed: 02/22/2021 11:19 PM Workstation Name: [id number]
[2021-02-22] MEDS ORDERED: APIXABAN 5 MG TAB PO ONE (23:48)
--- NOTE | 2021-02-23 11:47 | Electrocardiograph Report ---
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
== END 2021-02-23 00:32 | disposition home or self-care (01) ==
LOC: ED 21:09
DX: R07.89 Other chest pain (principal); I10 Essential (primary) hypertension; Z79.899 Other long term (current) drug therapy
CPT/HCPCS: 36415; 71046; 80048; 82550; 82553; 83735; 83880; 84439; 84443; 84484; 84703; 85025; 85379; 93005; 99284

== ENCOUNTER 2021-02-26 05:32 | Emergency (ER) | payer OTHER ==
[2021-02-26 05:48] VITALS: BP 119/83
--- NOTE | 2021-02-26 06:51 | XRay Report ---
CHEST 2 VIEWS INDICATION / CLINICAL INFORMATION: Chest Pain. COMPARISON: 02/22/21 FINDINGS: SUPPORT DEVICES: None. HEART / MEDIASTINUM: No significant abnormality. LUNGS / PLEURA: No significant pulmonary or pleural abnormality. No pneumothorax. ADDITIONAL FINDINGS: No significant additional findings. IMPRESSION: 1. No acute findings. No change. Signer Name: Anatoliy Mora MD Signed: 02/26/2021 6:47 AM Workstation Name: [id number]
[2021-02-26 07:10] LABS: Basophils % (Auto) 0.4 % (0.0-1.8); Eosinophils # (Auto) 0.1 K/mm3 (0.0-0.4); Eosinophils % (Auto) 1.4 % (0.0-4.3); Hematocrit 31.3 % (30.3-42.9); Hemoglobin 10.2 gm/dl (10.1-14.3); Lymphocytes # (Auto) 1.6 K/mm3 (1.2-5.4); Lymphocytes % (Auto) 35.8 % (13.4-35.0); Mean Corpuscular HGB Conc 32 % (30-34); Mean Corpuscular Volume 83 fl (79-97); Monocytes # (Auto) 0.3 K/mm3 (0.0-0.8); Monocytes % (Auto) 6.5 % (0.0-7.3); Platelet Count 234 K/mm3 (140-440)
[2021-02-26 07:35] LABS: Blood Urea Nitrogen 8 mg/dL (7-17); Calcium 9.2 mg/dL (8.4-10.2); Hemolysis Index 1
[2021-02-26 07:36] LABS: BUN/Creatinine Ratio 16
--- NOTE | 2021-02-26 08:10 | Emergency Department Report ---
HPI - General Chief Complaint: Chest Pain Time Seen by Provider: 02/26/21 07:52 - HPI HPI: Reassessment 3 The patient is a 30-year-old female present with a chief complaint of chest pain. This patient is known by myself as I seen her recently for similar complaints. Patient is currently on Eliquis for treatment of PE. The patient states she came to the emergency department because she again developed chest pain and shortness of breath 1 hour after taking her Eliquis. The patient states she had taken her medication and then fell asleep but was awakened with aching pain in the substernal chest. Patient states the pain has since subsided and she is currently asymptomatic. Patient states she was able to follow-up with her primary physician and had her coagulation studies drawn. Patient states she has not yet received her results from primary physician. Patient states she has an appointment with a self pay collector tomorrow. ED Past Medical Hx - Past Medical History Hx Hypertension: Yes (with eclampsia) Additional medical history: PE-on eliquis ,heart murmur. eclampsia. pericarditis - Surgical History Additional Surgical History: TUBAL LIGATION - Family History Family history: no significant - Social History Smoking Status: Never Smoker Substance Use Type: None (Denies illicit drug use) - Medications Home Medications: Home Medications Medication Instructions Recorded Confirmed Last Taken Type Ibuprofen [Motrin 800 MG tab] 800 mg PO Q8HR PRN #20 tablet 09/28/15 01/04/21 Unknown Rx Ibuprofen [Motrin] 800 mg PO Q8HR PRN #15 tablet 03/23/16 01/04/21 Unknown Rx Ibuprofen [Motrin] 600 mg PO Q8H PRN #24 tablet 03/23/19 01/04/21 Unknown Rx Lidocaine Viscous 2% 10 ml MM DAILY PRN #120 udc 12/20/20 01/04/21 Unknown Rx Apixaban [Eliquis starter pack] 5 mg PO BID #60 tab.ds.pk 01/04/21 Unknown Rx Metoclopramide [Reglan] 10 mg PO ACHS #120 tablet 01/12/21 Unknown Rx traMADoL [Ultram] 50 mg PO Q6HR PRN #10 tablet 02/22/21 Unknown Rx ED Review of Systems ROS: Stated complaint: CHEST PAIN/COLD SX/SOB Other details as noted in HPI Constitutional: no symptoms reported Eyes: denies: eye pain ENT: denies: throat pain Respiratory: cough, shortness of breath Cardiovascular: chest pain Endocrine: no symptoms reported Gastrointestinal: denies: abdominal pain Musculoskeletal: denies: back pain Neurological: denies: headache Physical Exam - Physical Exam Vital Signs: Vital Signs 02/26/21 05:44 Temperature 98.8 F Pulse Rate 81 Respiratory 16 Rate Blood Pressure 119/83 [Right] O2 Sat by Pulse 100 Oximetry Physical Exam: GENERAL: The patient is well-developed well-nourished female sitting in chair using cell phone not appearing to be in acute distress. [] HEENT: Normocephalic. Atraumatic. Extraocular motions are intact. Patient has moist mucous membranes. NECK: Supple. Trachea midline CHEST/LUNGS: Clear to auscultation. There is no respiratory distress noted. HEART/CARDIOVASCULAR: Regular. There is no tachycardia. There is no gallop rub or murmur. ABDOMEN: Abdomen is soft, nontender. Patient has normal bowel sounds. There is no abdominal distention. SKIN: There is no rash. There is no edema. There is no diaphoresis. NEURO: The patient is awake, alert, and oriented. The patient is cooperative. The patient has no focal neurologic deficits. The patient has normal speech and gait. GCS 15 MUSCULOSKELETAL: There is no evidence of acute injury. ED Course Vital Signs 02/26/21 05:44 Temperature 98.8 F Pulse Rate 81 Respiratory 16 Rate Blood Pressure 119/83 [Right] O2 Sat by Pulse 100 Oximetry ED Medical Decision Making - Lab Data Result diagrams: 02/26/21 06:47 02/26/21 06:47 Laboratory Tests 02/26/21 02/26/21 06:47 06:47 WBC 4.5 RBC 3.80 Hgb 10.2 Hct 31.3 MCV 83 MCH 27 L MCHC 32 RDW 15.0 Plt Count 234 Lymph % (Auto) 35.8 H [place] % (Auto) 6.5 Eos % (Auto) 1.4 Baso % (Auto) 0.4 Lymph # (Auto) 1.6 [place] # (Auto) 0.3 Eos # (Auto) 0.1 Baso # (Auto) 0.0 Seg Neutrophils % 55.9 Seg Neutrophils # 2.5 Sodium 142 Potassium 3.8 Chloride 106.5 Carbon Dioxide 25 Anion Gap 14 BUN 8 Creatinine 0.5 L Estimated GFR > 60 BUN/Creatinine Ratio 16 Glucose 99 Calcium 9.2 Troponin T < 0.010 - EKG Data -: EKG Interpreted by Me EKG shows normal: sinus rhythm Rate: normal - EKG Data When compared to previous EKG there are: no significant change Interpretation: normal EKG - Radiology Data Radiology results: report reviewed (Chest x-ray), image reviewed (Chest x-ray) interpreted by me: Chest x-ray-no definite focal infiltrates, no pneumothorax [facility] [address] [place] [address] XRay Report Signed Patient: VIANNEY YAÑEZ MR#: [id number] : 1990 Acct:[id number] Age/Sex: 30 / F ADM Date: 02/26/21 Loc: ED Attending Dr: Ordering Physician: ELLIOTT COATES DO Date of Service: 02/26/21 Procedure(s): XR chest routine 2V Accession Number(s): [id number] cc: ELLIOTT COATES DO Fluoro Time In Minutes: CHEST 2 VIEWS INDICATION / CLINICAL INFORMATION: Chest Pain. COMPARISON: 02/22/21 FINDINGS: SUPPORT DEVICES: None. HEART / MEDIASTINUM: No significant abnormality. LUNGS / PLEURA: No significant pulmonary or pleural abnormality. No pneumothorax. ADDITIONAL FINDINGS: No significant additional findings. IMPRESSION: 1. No acute findings. No change. Signer Name: Anatoliy Mora MD Signed: 02/26/2021 6:47 AM Workstation Name: [id number] Transcribed By: DT Dictated By: Ashok Mora MD Electronically Authenticated By: Ashok Mora MD Signed Date/Time: 02/26/21646 DD/ 5 TD/TT: Print Cancel - Differential Diagnosis Anxiety, ACS, pericarditis, GERD Critical care attestation.: If time is entered above; I have spent that time in minutes in the direct care of this critically ill patient, excluding procedure time. ED Disposition Clinical Impression: Atypical chest pain Disposition: HOME / SELF CARE / HOMELESS Is pt being admited?: No Does the pt Need Aspirin: No Condition: Stable Instructions: Nonspecific Chest Pain, Adult Referrals: PRIMARY CARE, [Primary Care Provider] - 3-5 Days Heart Score - HEART Score History: Slightly suspicious EKG: Normal Age: < 45 Risk factors: No known risk factors Troponin: < normal limit HEART Score: 0 - EKG Read Time Time EKG Completed: 05:51 EKG Read Time: 05:58
--- NOTE | 2021-02-26 13:39 | Electrocardiograph Report ---
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
== END 2021-02-26 09:03 | disposition home or self-care (01) ==
LOC: ED 05:32
DX: R07.89 Other chest pain (principal); R06.02 Shortness of breath; Z98.51 Tubal ligation status
CPT/HCPCS: 36415; 71046; 80048; 84484; 85025; 93005

== ENCOUNTER 2021-03-05 20:30 | Emergency (ER) | payer OTHER ==
[2021-03-05 21:12] VITALS: BP 127/67
--- NOTE | 2021-03-05 23:08 | Emergency Department Report ---
Blank Doc - Documentation Documentation: pt eloped prior to my evaluation triage vitals within normal range EKG not available for review
== END 2021-03-05 22:30 | disposition left against medical advice (07) ==
LOC: ED 20:30
DX: R07.89 Other chest pain (principal); Z53.21 Procedure and treatment not carried out due to patient leaving prior to being seen by health care provider

== ENCOUNTER 2021-03-09 12:46 | Emergency (ER) | payer OTHER ==
[2021-03-09 12:50] VITALS: BP 131/80
--- NOTE | 2021-03-09 13:12 | Emergency Department Report ---
ED Chest Pain HPI - General Chief Complaint: Chest Pain Stated Complaint: CHEST PALPITATIONS PUI?: No Time Seen by Provider: 03/09/21 12:55 Source: patient Mode of arrival: Ambulatory Limitations: No Limitations - History of Present Illness Initial Comments: CC: chest pain, palpitations HPI: This is a 30 yo female with hx of recurrent chest pain and costochondritis who presents with chest pain, shortness of breath and palpitations for 2 days. In December of this year, CT angiogram revealed areas of low-attenuation within the segmental and peripheral pulmonary arteries. Differential includes significant motion artifact versus peripheral PTE's. January 2021 no evidence of pulmonary thromboembolism to the level lobar pulmonary arteries. 02/11/2021 no central PTE identified. Segmental and peripheral pulmonary arteries visualized appear patent. Patient has had recurrent chest pain, shortness of breath palpitations intermittent for the last several days. Patient was evaluated 5 times previously this month. Patient has had 18 visits to the emergency department this year. According to electronic record patient has been evaluated for chest pain since 2015 in this emergency department. She is followed at [facility] as her primary mcc. She is followed by coffee supervisor. Complaint: chest pain -: Gradual, days(s) (2 days) Onset: during rest Pain Location: substernal Severity: moderate Quality: aching Consistency: intermittent Improves With: nothing Worsens With: nothing re: dyspnea, other (palpitations) - Related Data Previous Rx's Medication Instructions Recorded Last Taken Type Ibuprofen [Motrin 800 MG tab] 800 mg PO Q8HR PRN #20 tablet 09/28/15 Unknown Rx Ibuprofen [Motrin] 800 mg PO Q8HR PRN #15 tablet 03/23/16 Unknown Rx Ibuprofen [Motrin] 600 mg PO Q8H PRN #24 tablet 03/23/19 Unknown Rx Lidocaine Viscous 2% 10 ml MM DAILY PRN #120 udc 12/20/20 Unknown Rx Apixaban [Eliquis starter pack] 5 mg PO BID #60 tab.ds.pk 01/04/21 Unknown Rx Metoclopramide [Reglan] 10 mg PO ACHS #120 tablet 01/12/21 Unknown Rx traMADoL [Ultram] 50 mg PO Q6HR PRN #10 tablet 02/22/21 Unknown Rx Allergies Allergy/AdvReac Type Severity Reaction Status Date / Time No Known Allergies Allergy Verified 03/09/21 12:50 Heart Score - HEART Score History: Slightly suspicious EKG: Normal Age: < 45 Risk factors: 1-2 risk factors Troponin: < normal limit (troponin obtained 4 days ago) HEART Score: 1 - EKG Read Time Time EKG Completed: 13:39 EKG Read Time: 13:39 - Critical Actions Critical Actions: 0-3 pts:0.9-1.7%risk of adverse cardiac event.Candidate for discharge ED Review of Systems ROS: Stated complaint: CHEST PALPITATIONS Other details as noted in HPI Comment: All other systems reviewed and negative Constitutional: denies: fever, malaise Respiratory: shortness of breath. denies: cough Cardiovascular: chest pain, palpitations ED Past Medical Hx - Past Medical History Previous Medical History?: Yes Hx Hypertension: Yes (with eclampsia) Hx Diabetes: No Hx Deep Vein Thrombosis: No Hx Renal Disease: No Hx Sickle Cell Disease: No Hx Seizures: No Hx Asthma: No Hx HIV: No Additional medical history: PE-on eliquis ,heart murmur. eclampsia. pericarditis - Surgical History Past Surgical History?: Yes Additional Surgical History: TUBAL LIGATION - Social History Smoking Status: Never Smoker Substance Use Type: None (Denies illicit drug use) - Medications Home Medications: Home Medications Medication Instructions Recorded Confirmed Last Taken Type Ibuprofen [Motrin 800 MG tab] 800 mg PO Q8HR PRN #20 tablet 09/28/15 01/04/21 Unknown Rx Ibuprofen [Motrin] 800 mg PO Q8HR PRN #15 tablet 03/23/16 01/04/21 Unknown Rx Ibuprofen [Motrin] 600 mg PO Q8H PRN #24 tablet 03/23/19 01/04/21 Unknown Rx Lidocaine Viscous 2% 10 ml MM DAILY PRN #120 udc 12/20/20 01/04/21 Unknown Rx Apixaban [Eliquis starter pack] 5 mg PO BID #60 tab.ds.pk 01/04/21 Unknown Rx Metoclopramide [Reglan] 10 mg PO ACHS #120 tablet 01/12/21 Unknown Rx traMADoL [Ultram] 50 mg PO Q6HR PRN #10 tablet 02/22/21 Unknown Rx ED Physical Exam - General Limitations: No Limitations General appearance: alert, in no apparent distress - Head Head exam: Present: atraumatic, normocephalic - Eye Eye exam: Present: normal appearance - ENT ENT exam: Present: mucous membranes moist - Neck Neck exam: Present: normal inspection, full ROM - Respiratory Respiratory exam: Present: normal lung sounds bilaterally. Absent: respiratory distress, wheezes, rales, rhonchi, stridor - Cardiovascular Cardiovascular Exam: Present: regular rate, normal rhythm, normal heart sounds. Absent: systolic murmur, diastolic murmur, rubs, gallop - GI/Abdominal GI/Abdominal exam: Present: soft, normal bowel sounds. Absent: distended, tenderness, guarding, rebound - Extremities Exam Extremities exam: Present: normal inspection - Back Exam Back exam: Present: normal inspection - Neurological Exam Neurological exam: Present: alert, oriented X3 - Psychiatric Psychiatric exam: Present: normal affect, normal mood - Skin Skin exam: Present: warm, dry, intact, normal color. Absent: rash ED Course Vital Signs 03/09/21 12:48 Temperature 99.1 F Pulse Rate 96 H Respiratory 20 Rate Blood Pressure 131/80 [Left] O2 Sat by Pulse 100 Oximetry KATHARINE score - Katharine Score Age > 65: (0) No Aspirin use within the Past 7 Days: (0) No 3 or more CAD Risk Factors: (0) No 2 or more Angina events in past 24 hrs: (0) No Known CAD with more than 50% Stenosis: (0) No Elevated Cardiac Markers: (0) No ST Deviation Greater than 0.5mm: (0) No KATHARINE Score: 0 ED Medical Decision Making - EKG Data -: EKG Interpreted by Me EKG shows normal: sinus rhythm, axis, intervals, QRS complexes, ST-T waves Rate: normal - EKG Data Interpretation: normal EKG 03/09/21 13:50 EKG obtained EKG interpreted by me Normal sinus rhythm normal rate normal axis normal intervals no ST elevation no ST-T signs of ischemia normal EKG rate 85 bpm - Medical Decision Making Recurrent chest pain diagnosed with subsegmental PE although motion artifact likely. She has been compliant with Eliquis. She knows that she needs to take this medication for 3 months. Recurrent chest pain for the past 5 years. Differential diagnosis includes costochondritis, arrhythmia, pericarditis. Normal exam normal vital signs. Intermittent pain. I do not suspect emergent condition such as pneumothorax, dissection, ACS EKG unremarkable referred to coffee supervisor and PCP. She has follow-up appointments with both cardiology and PCP in March. Critical care attestation.: If time is entered above; I have spent that time in minutes in the direct care of this critically ill patient, excluding procedure time. ED Disposition Clinical Impression: Chest pain Disposition: HOME / SELF CARE / HOMELESS Is pt being admited?: No Does the pt Need Aspirin: No Condition: Stable Instructions: Nonspecific Chest Pain, Adult Referrals: NOA FORTE MD [Staff Physician] - 3-5 Days PRIMARY CARE, [Referring] - 3-5 Days
--- NOTE | 2021-03-10 08:57 | Electrocardiograph Report ---
[facility] Test Date: 2021-03-09 Test Time: 13:39:33 Pat Name: VIANNEY YAÑEZ Department: Room: Gender: F Psychiatric Lpn: ED : 1990 Requested By: MONICO BUCHANAN Order Number: [id number] Reading MD: Sebastian Sims Measurements Intervals [place] Rate: 84 P: 31 OR: 161 QRS: 42 QRSD: 85 T: 53 QT: 349 QTc: 412 Interpretive Statements Sinus rhythm Compared to ECG 02/26/2021 05:51:05 No significant changes Electronically Signed On 03-10-2021 8:57:21 EST by Sebastian Sims
== END 2021-03-09 14:03 | disposition home or self-care (01) ==
LOC: ED 12:46
DX: R07.9 Chest pain, unspecified (principal); I10 Essential (primary) hypertension
CPT/HCPCS: 93005; 99281

== ENCOUNTER 2021-03-19 00:51 | Emergency (ER) | payer OTHER ==
[2021-03-19 00:57] VITALS: BP 109/67
--- NOTE | 2021-03-19 01:24 | Emergency Department Report ---
ED Chest Pain HPI - General Chief Complaint: Chest Pain Stated Complaint: CHEST PAIN PUI?: No Time Seen by Provider: 03/19/21 01:15 Source: patient Mode of arrival: Ambulatory Limitations: No Limitations - History of Present Illness Initial Comments: Chief complaint: "It is the same thing." HPI: This is a 30-year-old female with history of recurrent chest pain. I have evaluated patient several times over the last 2 years. She has had recurrent chest palpitations for the last 5 years. Well-documented in this emergency dep artment since 2016. She has palpitations chest pain lightheadedness. She is concerned that her systolic blood pressure is 109,normal 130. Worse when laying flat. History of PE on Eliquis. She has been compliant with her medication. MD Complaint: chest pain -: Gradual, hour(s) (2 hours) Onset: during rest Pain Radiation: none Severity: mild Severity scale (0 -10): 5 Consistency: constant Improves With: nothing Worsens With: nothing - Related Data Previous Rx's Medication Instructions Recorded Last Taken Type Ibuprofen [Motrin 800 MG tab] 800 mg PO Q8HR PRN #20 tablet 09/28/15 Unknown Rx Ibuprofen [Motrin] 800 mg PO Q8HR PRN #15 tablet 03/23/16 Unknown Rx Ibuprofen [Motrin] 600 mg PO Q8H PRN #24 tablet 03/23/19 Unknown Rx Lidocaine Viscous 2% 10 ml MM DAILY PRN #120 udc 12/20/20 Unknown Rx Apixaban [Eliquis starter pack] 5 mg PO BID #60 tab.ds.pk 01/04/21 Unknown Rx Metoclopramide [Reglan] 10 mg PO ACHS #120 tablet 01/12/21 Unknown Rx traMADoL [Ultram] 50 mg PO Q6HR PRN #10 tablet 02/22/21 Unknown Rx Allergies Allergy/AdvReac Type Severity Reaction Status Date / Time No Known Allergies Allergy Verified 03/19/21 00:57 Heart Score - HEART Score History: Slightly suspicious EKG: Normal Age: < 45 Risk factors: 1-2 risk factors Troponin: < normal limit HEART Score: 1 - EKG Read Time Time EKG Completed: 00:00 EKG Read Time: 00:00 - Critical Actions Critical Actions: 0-3 pts:0.9-1.7%risk of adverse cardiac event.Candidate for discharge ED Review of Systems ROS: Stated complaint: CHEST PAIN Other details as noted in HPI Comment: All other systems reviewed and negative Constitutional: denies: fever, malaise Respiratory: denies: cough ED Past Medical Hx - Past Medical History Previous Medical History?: Yes Hx Hypertension: Yes (with eclampsia) Hx Diabetes: No Hx Deep Vein Thrombosis: No Hx Renal Disease: No Hx Sickle Cell Disease: No Hx Seizures: No Hx Asthma: No Hx HIV: No Additional medical history: PE-on eliquis ,heart murmur. eclampsia. pericarditis - Surgical History Additional Surgical History: TUBAL LIGATION - Social History Smoking Status: Never Smoker Substance Use Type: None (Denies illicit drug use) - Medications Home Medications: Home Medications Medication Instructions Recorded Confirmed Last Taken Type Ibuprofen [Motrin 800 MG tab] 800 mg PO Q8HR PRN #20 tablet 09/28/15 01/04/21 Unknown Rx Ibuprofen [Motrin] 800 mg PO Q8HR PRN #15 tablet 03/23/16 01/04/21 Unknown Rx Ibuprofen [Motrin] 600 mg PO Q8H PRN #24 tablet 03/23/19 01/04/21 Unknown Rx Lidocaine Viscous 2% 10 ml MM DAILY PRN #120 udc 12/20/20 01/04/21 Unknown Rx Apixaban [Eliquis starter pack] 5 mg PO BID #60 tab.ds.pk 01/04/21 Unknown Rx Metoclopramide [Reglan] 10 mg PO ACHS #120 tablet 01/12/21 Unknown Rx traMADoL [Ultram] 50 mg PO Q6HR PRN #10 tablet 02/22/21 Unknown Rx ED Physical Exam - General Limitations: No Limitations General appearance: alert, in no apparent distress - Head Head exam: Present: atraumatic, normocephalic - Eye Eye exam: Present: normal appearance - ENT ENT exam: Present: mucous membranes moist - Neck Neck exam: Present: normal inspection, full ROM - Respiratory Respiratory exam: Present: normal lung sounds bilaterally. Absent: respiratory distress, wheezes, rales, rhonchi - Cardiovascular Cardiovascular Exam: Present: regular rate, normal rhythm, normal heart sounds. Absent: systolic murmur, diastolic murmur, rubs, gallop - GI/Abdominal GI/Abdominal exam: Present: soft, normal bowel sounds - Extremities Exam Extremities exam: Present: normal inspection - Back Exam Back exam: Present: normal inspection - Neurological Exam Neurological exam: Present: alert, oriented X3 - Psychiatric Psychiatric exam: Present: normal affect, normal mood - Skin Skin exam: Present: warm, dry, intact, normal color. Absent: rash ED Course Vital Signs 03/19/21 00:54 Temperature 98.6 F Pulse Rate 88 Respiratory 17 Rate Blood Pressure 109/67 [Left] O2 Sat by Pulse 99 Oximetry KATHARINE score - Katharine Score Age > 65: (0) No Aspirin use within the Past 7 Days: (0) No 3 or more CAD Risk Factors: (0) No 2 or more Angina events in past 24 hrs: (0) No Known CAD with more than 50% Stenosis: (0) No Elevated Cardiac Markers: (0) No ST Deviation Greater than 0.5mm: (0) No KATHARINE Score: 0 ED Medical Decision Making - EKG Data -: EKG Interpreted by [place] EKG shows normal: sinus rhythm, axis, intervals, QRS complexes, ST-T waves Rate: normal - EKG Data 03/19/21 01:22 EKG obtained 57 EKG interpreted by wv Rate 90 bpm normal axis normal intervals no ST sign of ischemia nonischemic T wave pattern - Medical Decision Making Recurrent chest pain palpitations for the past 5 years. EKG unremarkable. Vital signs stable. Recommended referral to follow-up with her primary care physician and medical collections specialist. Compliant with Eliquis therapy. Critical care attestation.: If time is entered above; I have spent that time in minutes in the direct care of this critically ill patient, excluding procedure time. ED Disposition Clinical Impression: Chest pain Disposition: HOME / SELF CARE / HOMELESS Is pt being admited?: No Does the pt Need Aspirin: No Condition: Stable Instructions: Nonspecific Chest Pain, Adult
--- NOTE | 2021-03-19 09:59 | Electrocardiograph Report ---
[facility] Test Date: 2021-03-19 Test Time: 00:58:47 Pat Name: VIANNEY YAÑEZ Department: Room: Gender: F Nurse Behavioral Health Care: NURSE : 1990 Requested By: MONICO BUCHANAN Order Number: [id number] Reading MD: Rishabh Reed Measurements Intervals [place] Rate: 91 P: 62 RI: 168 QRS: 51 QRSD: 87 T: 64 QT: 342 QTc: 422 Interpretive Statements Sinus rhythm Left atrial enlargement Compared to ECG 03/09/2021 13:39:33 Atrial abnormality now present Electronically Signed On 03-19-2021 9:59:16 EST by Rishabh Reed
== END 2021-03-19 01:30 | disposition home or self-care (01) ==
LOC: ED 00:51
DX: R07.9 Chest pain, unspecified (principal); Z98.51 Tubal ligation status
CPT/HCPCS: 93005; 99282

== ENCOUNTER 2021-03-20 03:14 | Emergency (ER) | payer OTHER ==
[2021-03-20 03:55] VITALS: BP 112/75
--- NOTE | 2021-03-20 04:43 | XRay Report ---
CHEST 2 VIEWS INDICATION / CLINICAL INFORMATION: Chest Pain. COMPARISON: 02/26/21. FINDINGS: SUPPORT DEVICES: None. HEART / MEDIASTINUM: The heart size and pulmonary vasculature are normal. The aorta is normal in [place]. LUNGS / PLEURA: No significant pulmonary or pleural abnormality. No pneumothorax. ADDITIONAL FINDINGS: No significant additional findings. IMPRESSION: No acute abnormality or significant change. Signer Name: Moose Louise MD Signed: 03/20/2021 4:39 AM Workstation Name: [id number]
[2021-03-20 05:38] LABS: Basophils % (Auto) 0.3 % (0.0-1.8); Eosinophils # (Auto) 0.1 K/mm3 (0.0-0.4); Eosinophils % (Auto) 1.1 % (0.0-4.3); Hematocrit 32.8 % (30.3-42.9); Hemoglobin 10.3 gm/dl (10.1-14.3); Lymphocytes # (Auto) 1.9 K/mm3 (1.2-5.4); Lymphocytes % (Auto) 37.4 % (13.4-35.0); Mean Corpuscular HGB Conc 31 % (30-34); Mean Corpuscular Volume 83 fl (79-97); Monocytes # (Auto) 0.4 K/mm3 (0.0-0.8); Monocytes % (Auto) 7.4 % (0.0-7.3); Platelet Count 197 K/mm3 (140-440); Red Blood Count 3.94 M/mm3 (3.65-5.03); Red Cell Distribution Width 15.6 % (13.2-15.2)
[2021-03-20 05:54] LABS: Alanine Aminotransferase 12 units/L (7-56); Albumin 4.4 g/dL (3.9-5); Blood Urea Nitrogen 9 mg/dL (7-17); Calcium 9.1 mg/dL (8.4-10.2); Hemolysis Index 3
[2021-03-20 06:03] LABS: BUN/Creatinine Ratio 15
--- NOTE | 2021-03-21 12:10 | Electrocardiograph Report ---
[facility] Test Date: 2021-03-20 Test Time: 04:20:31 Pat Name: VIANNEY YAÑEZ Department: Room: Gender: F Astrochemist: JOHANNA : 1990 Requested By: ED DOC Order Number: [id number] Reading MD: Rishabh Reed Measurements Intervals [place] Rate: 87 P: 68 [place]: 177 QRS: 50 QRSD: 82 T: 58 QT: 346 QTc: 417 Interpretive Statements Sinus rhythm Compared to ECG 03/19/2021 00:58:47 Atrial abnormality no longer present Electronically Signed On 03-21-2021 12:09:58 EST by Rishabh Reed
== END 2021-03-20 03:55 | disposition left against medical advice (07) ==
LOC: ED 03:14
DX: R07.89 Other chest pain (principal); Z53.21 Procedure and treatment not carried out due to patient leaving prior to being seen by health care provider
CPT/HCPCS: 36415; 71046; 80053; 84484; 85025; 93005

== ENCOUNTER 2021-03-26 16:17 | Emergency (ER) | payer OTHER ==
[2021-03-26 17:57] LABS: Basophils % (Auto) 0.5 % (0.0-1.8); Eosinophils # (Auto) 0.1 K/mm3 (0.0-0.4); Eosinophils % (Auto) 1.4 % (0.0-4.3); Hematocrit 33.2 % (30.3-42.9); Hemoglobin 10.4 gm/dl (10.1-14.3); Lymphocytes # (Auto) 1.9 K/mm3 (1.2-5.4); Lymphocytes % (Auto) 45.4 % (13.4-35.0); Mean Corpuscular HGB Conc 31 % (30-34); Mean Corpuscular Volume 84 fl (79-97); Monocytes # (Auto) 0.3 K/mm3 (0.0-0.8); Monocytes % (Auto) 6.7 % (0.0-7.3); Platelet Count 237 K/mm3 (140-440); Red Blood Count 3.98 M/mm3 (3.65-5.03); Red Cell Distribution Width 15.9 % (13.2-15.2)
[2021-03-26 18:13] LABS: INR 1.03 (0.87-1.13)
[2021-03-26 18:14] LABS: Partial Thromboplastin Time 33.3 Sec. (24.2-36.6)
[2021-03-26 18:16] LABS: Alanine Aminotransferase 12 units/L (7-56); Albumin 4.2 g/dL (3.9-5); Blood Urea Nitrogen 11 mg/dL (7-17); Hemolysis Index 3
[2021-03-26 18:17] LABS: BUN/Creatinine Ratio 18
--- NOTE | 2021-03-26 19:13 | XRay Report ---
CHEST 2 VIEWS INDICATION / CLINICAL INFORMATION: Chest Pain STUDY TIME: 1854 COMPARISON: 03/20/2021 FINDINGS: SUPPORT DEVICES: None. HEART / MEDIASTINUM: No significant abnormality. LUNGS / PLEURA: No significant acute pulmonary or pleural abnormality. No pneumothorax. ADDITIONAL FINDINGS: No significant additional findings. Signer Name: Adams Arzola MD Signed: 03/26/2021 7:09 PM Workstation Name: [id number]
--- NOTE | 2021-03-26 19:42 | Emergency Department Report ---
ED Chest Pain HPI - General Chief Complaint: Chest Pain Stated Complaint: CP/SOB/SIDE BACK PAIN NUMBNESS Time Seen by Provider: 03/26/21 17:12 Source: patient Mode of arrival: Ambulatory Limitations: No Limitations - History of Present Illness Initial Comments: This is a 30-year-old female nontoxic, well nourished in appearance, no acute signs of distress presents to the ED with c/o of acute on chronic intermittent left sided chest pain with shortness of breath intermittently x1 week. Patient stated has history of PE and is currently on blood thinner. Currently patient denies any chest pain or shortness of breath. Patient was seen here on multiple occasions for the same complaints. Patient denies any radiation of pain. Patient describes pain as aching intermittently. Patient denies any upper respiratory symptoms. Patient denies any chest pain, shortness of breath, hemoptysis, fever, chills, nausea, vomiting, headache, stiff neck, numbness, tingling, abdominal pain. Patient denies pleuritic chest pain. Patient denies any recent travels or long car rides. Patient denies any recent surgeries or any sick contacts. Patient denies any drug allergies. MD Complaint: chest pain -: week(s) Pain Location: left chest Pain Radiation: none Severity scale (0 -10): 0 Consistency: now resolved Improves With: nothing Worsens With: nothing re: denies: nausea, vomting, diaphoresis, dyspnea, sense of impending doom Other Symptoms: denies: cough, fever, syncope, rash, acid taste in mouth, leg swelling, palpitations, burping Treatments Prior to Arrival: none - Related Data On Oral Contraceptives: No Previous Rx's Medication Instructions Recorded Last Taken Type Ibuprofen [Motrin 800 MG tab] 800 mg PO Q8HR PRN #20 tablet 09/28/15 Unknown Rx Ibuprofen [Motrin] 800 mg PO Q8HR PRN #15 tablet 03/23/16 Unknown Rx Ibuprofen [Motrin] 600 mg PO Q8H PRN #24 tablet 03/23/19 Unknown Rx Lidocaine Viscous 2% 10 ml MM DAILY PRN #120 udc 12/20/20 Unknown Rx Apixaban [Eliquis starter pack] 5 mg PO BID #60 tab.ds.pk 01/04/21 Unknown Rx Metoclopramide [Reglan] 10 mg PO ACHS #120 tablet 01/12/21 Unknown Rx traMADoL [Ultram] 50 mg PO Q6HR PRN #10 tablet 02/22/21 Unknown Rx Allergies Allergy/AdvReac Type Severity Reaction Status Date / Time No Known Allergies Allergy Verified 03/26/21 17:13 Heart Score - HEART Score History: Slightly suspicious EKG: Normal Age: < 45 Risk factors: 1-2 risk factors Troponin: < normal limit HEART Score: 1 - EKG Read Time Time EKG Completed: 00:00 (see EKG) EKG Read Time: 00:00 (see EKG) - Critical Actions Critical Actions: 0-3 pts:0.9-1.7%risk of adverse cardiac event.Candidate for discharge ED Review of Systems ROS: Stated complaint: CP/SOB/SIDE BACK PAIN NUMBNESS Other details as noted in HPI Constitutional: denies: chills, fever Eyes: denies: eye pain, eye discharge, vision change ENT: denies: ear pain, throat pain Respiratory: shortness of breath. denies: cough, orthopnea, SOB with exertion, SOB at rest, wheezing Cardiovascular: chest pain. denies: palpitations, dyspnea on exertion, orthopnea, edema, syncope, paroxysmal nocturnal dyspnea Endocrine: no symptoms reported Gastrointestinal: denies: abdominal pain, nausea, diarrhea Genitourinary: denies: urgency, dysuria, discharge Musculoskeletal: denies: back pain, joint swelling, arthralgia Skin: denies: rash, lesions Neurological: denies: headache, weakness, paresthesias Psychiatric: denies: anxiety, depression Hematological/Lymphatic: denies: easy bleeding, easy bruising ED Past Medical Hx - Past Medical History Previous Medical History?: Yes Hx Hypertension: Yes (with eclampsia) Hx Diabetes: No Hx Deep Vein Thrombosis: No Hx Renal Disease: No Hx Sickle Cell Disease: No Hx Seizures: No Hx Asthma: No Hx HIV: No Additional medical history: PE-on eliquis ,heart murmur. eclampsia. pericarditis - Surgical History Past Surgical History?: Yes Additional Surgical History: TUBAL LIGATION - Social History Smoking Status: Never Smoker Substance Use Type: None - Medications Home Medications: Home Medications Medication Instructions Recorded Confirmed Last Taken Type Ibuprofen [Motrin 800 MG tab] 800 mg PO Q8HR PRN #20 tablet 09/28/15 03/26/21 Unknown Rx Ibuprofen [Motrin] 800 mg PO Q8HR PRN #15 tablet 03/23/16 03/26/21 Unknown Rx Ibuprofen [Motrin] 600 mg PO Q8H PRN #24 tablet 03/23/19 03/26/21 Unknown Rx Lidocaine Viscous 2% 10 ml MM DAILY PRN #120 udc 12/20/20 03/26/21 Unknown Rx Apixaban [Eliquis starter pack] 5 mg PO BID #60 tab.ds.pk 01/04/21 03/26/21 Unknown Rx Metoclopramide [Reglan] 10 mg PO ACHS #120 tablet 01/12/21 03/26/21 Unknown Rx traMADoL [Ultram] 50 mg PO Q6HR PRN #10 tablet 02/22/21 03/26/21 Unknown Rx ED Physical Exam - General Limitations: No Limitations General appearance: alert, in no apparent distress - Head Head exam: Present: atraumatic, normocephalic - Eye Eye exam: Present: normal appearance - Neck Neck exam: Present: normal inspection, full ROM. Absent: lymphadenopathy - Respiratory Respiratory exam: Present: normal lung sounds bilaterally. Absent: respiratory distress, wheezes, rales, rhonchi, stridor, chest wall tenderness, accessory muscle use, decreased breath sounds, prolonged expiratory - Cardiovascular Cardiovascular Exam: Present: regular rate, normal rhythm, normal heart sounds. Absent: bradycardia, tachycardia, irregular rhythm, systolic murmur, diastolic murmur, rubs, gallop - GI/Abdominal GI/Abdominal exam: Present: soft, normal bowel sounds. Absent: distended, tenderness, guarding, rebound, rigid, diminished bowel sounds - Extremities Exam Extremities exam: Present: normal inspection, full ROM, normal capillary refill. Absent: tenderness - Back Exam Back exam: Present: normal inspection, full ROM. Absent: tenderness, CVA tenderness (R), CVA tenderness (L), muscle spasm, paraspinal tenderness, verte bral tenderness, rash noted - Neurological Exam Neurological exam: Present: alert, oriented X3, normal gait - Psychiatric Psychiatric exam: Present: normal affect, normal mood - Skin Skin exam: Present: warm, dry, intact, normal color. Absent: rash ED Course Vital Signs 03/26/21 03/26/21 03/26/21 16:24 16:28 17:10 Temperature 98.2 F 98.5 F 98.3 F Pulse Rate 74 91 H 74 Respiratory 18 15 14 Rate Blood Pressure 117/62 Blood Pressure 116/67 113/76 [Right] O2 Sat by Pulse 98 100 100 Oximetry 03/26/21 17:12 Temperature 98.3 F Pulse Rate 74 Respiratory 14 Rate Blood Pressure 113/76 Blood Pressure [Right] O2 Sat by Pulse 100 Oximetry - Reevaluation(s) Reevaluation #1: 03/26/21 19:43 Patient is speaking in full sentences with no signs of distress noted. CHAMP score - Champ Score Age > 65: (0) No Aspirin use within the Past 7 Days: (0) No 3 or more CAD Risk Factors: (0) No 2 or more Angina events in past 24 hrs: (0) No Known CAD with more than 50% Stenosis: (0) No Elevated Cardiac Markers: (0) No ST Deviation Greater than 0.5mm: (0) No CHAMP Score: 0 ED Medical Decision Making - Lab Data Result diagrams: 03/26/21 17:23 03/26/21 17:23 Lab Results 03/26/21 03/26/21 03/26/21 Range/Units 17:23 17:23 17:23 WBC 4.1 L (4.5-11.0) K/mm3 RBC 3.98 (3.65-5.03) M/mm3 Hgb 10.4 (10.1-14.3) gm/dl Hct 33.2 (30.3-42.9) % MCV 84 (79-97) fl MCH 26 L (28-32) pg MCHC 31 (30-34) % RDW 15.9 H (13.2-15.2) % Plt Count 237 (140-440) K/mm3 Lymph % (Auto) 45.4 H (13.4-35.0) % [place] % (Auto) 6.7 (0.0-7.3) % Eos % (Auto) 1.4 (0.0-4.3) % Baso % (Auto) 0.5 (0.0-1.8) % Lymph # (Auto) 1.9 (1.2-5.4) K/mm3 [place] # (Auto) 0.3 (0.0-0.8) K/mm3 Eos # (Auto) 0.1 (0.0-0.4) K/mm3 Baso # (Auto) 0.0 (0.0-0.1) K/mm3 Seg Neutrophils % 46.0 (40.0-70.0) % Seg Neutrophils # 1.9 (1.8-7.7) K/mm3 PT 14.6 (12.2-14.9) Sec. INR 1.03 (0.87-1.13) APTT 33.3 (24.2-36.6) Sec. D-Dimer (0-234) ng/mlDDU Sodium 141 (137-145) mmol/L Potassium 4.3 (3.6-5.0) mmol/L Chloride 107.1 H (98-107) mmol/L Carbon Dioxide 24 (22-30) mmol/L Anion Gap 14 mmol/L BUN 11 (7-17) mg/dL Creatinine 0.6 (0.6-1.2) mg/dL Estimated GFR > 60 ml/min BUN/Creatinine Ratio 18 % Glucose 111 H (65-100) mg/dL Calcium 9.0 (8.4-10.2) mg/dL Total Bilirubin 0.20 (0.1-1.2) mg/dL AST 13 (5-40) units/L ALT 12 (7-56) units/L Alkaline Phosphatase 86 (35-129) units/L Troponin T < 0.010 (0.00-0.029) ng/mL Total Protein 7.1 (6.3-8.2) g/dL Albumin 4.2 (3.9-5) g/dL Albumin/Globulin Ratio 1.4 % Lipase 32 (13-60) units/L HCG, Qual (Negative) 03/26/21 03/26/21 Range/Units 17:23 18:06 WBC (4.5-11.0) K/mm3 RBC (3.65-5.03) M/mm3 Hgb (10.1-14.3) gm/dl Hct (30.3-42.9) % MCV (79-97) fl MCH (28-32) pg MCHC (30-34) % RDW (13.2-15.2) % Plt Count (140-440) K/mm3 Lymph % (Auto) (13.4-35.0) % [place] % (Auto) (0.0-7.3) % Eos % (Auto) (0.0-4.3) % Baso % (Auto) (0.0-1.8) % Lymph # (Auto) (1.2-5.4) K/mm3 [place] # (Auto) (0.0-0.8) K/mm3 Eos # (Auto) (0.0-0.4) K/mm3 Baso # (Auto) (0.0-0.1) K/mm3 Seg Neutrophils % (40.0-70.0) % Seg Neutrophils # (1.8-7.7) K/mm3 PT (12.2-14.9) Sec. INR (0.87-1.13) APTT (24.2-36.6) Sec. D-Dimer 152.80 (0-234) ng/mlDDU Sodium (137-145) mmol/L Potassium (3.6-5.0) mmol/L Chloride (98-107) mmol/L Carbon Dioxide (22-30) mmol/L Anion Gap mmol/L BUN (7-17) mg/dL Creatinine (0.6-1.2) mg/dL Estimated GFR ml/min BUN/Creatinine Ratio % Glucose (65-100) mg/dL Calcium (8.4-10.2) mg/dL Total Bilirubin (0.1-1.2) mg/dL AST (5-40) units/L ALT (7-56) units/L Alkaline Phosphatase (35-129) units/L Troponin T (0.00-0.029) ng/mL Total Protein (6.3-8.2) g/dL Albumin (3.9-5) g/dL Albumin/Globulin Ratio % Lipase (13-60) units/L HCG, Qual Negative (Negative) - EKG Data 03/26/21 19:48 Normal sinus rhythm at [address] or T wave abnormalities. Reviewed and signed by . - Radiology Data [facility] [address] [place] [address] XRay Report Signed Patient: VIANNEY YAÑEZ MR#: [id number] : 1990 Acct:[id number] Age/Sex: 30 / F ADM Date: 03/26/21 Loc: ED Attending Dr: Ordering Physician: ALMA CELAYA NP Date of Service: 03/26/21 Procedure(s): XR chest routine 2V Accession Number(s): [id number] cc: ALMA CELAYA NP Fluoro Time In Minutes: CHEST 2 VIEWS INDICATION / CLINICAL INFORMATION: Chest Pain STUDY TIME: 1854 COMPARISON: 03/20/2021 FINDINGS: SUPPORT DEVICES: None. HEART / MEDIASTINUM: No significant abnormality. LUNGS / PLEURA: No significant acute pulmonary or pleural abnormality. No pneumothorax. ADDITIONAL FINDINGS: No significant additional findings. Signer Name: Adams Arzola MD Signed: 03/26/2021 7:09 PM Workstation Name: [id number] Transcribed By: Dictated By: Adams Arzola MD Electronically Authenticated By: Adams Arzola MD Signed Date/Time: 03/26/211908 DD/ 07 TD/TT: - Medical Decision Making This is a 30-year-old female that presents with chest pain. Patient is stable and was examined by me. Negative d-dimmer. EKG normal sinus rhythm with no significant changes in ST. Chest xray dictated by the radiologist. PAtient is notified of the Xray report with no questions noted. Labs within normal limits. Negative troponin. Patient was instructed to Follow-up with a primary care/acrobatic rigger doctor in 2 days or if symptoms worsen and continue return to emergency room as soon as possible. At time of discharge, the patient does not seem toxic or ill in appearance. No acute signs of distress noted. Patient agrees to discharge treatment plan of care. No further questions noted by the patient. Critical care attestation.: If time is entered above; I have spent that time in minutes in the direct care of this critically ill patient, excluding procedure time. ED Disposition Clinical Impression: Chest pain, unspecified Disposition: 01 HOME / SELF CARE / HOMELESS Is pt being admited?: No Does the pt Need Aspirin: No Condition: Stable Instructions: Nonspecific Chest Pain, Adult Additional Instructions: Follow-up with a acrobatic rigger doctor in 2 days or if symptoms worsen and continue return to emergency room as soon as possible. Referrals: DAVI MARTINEZ MD [Primary Care Provider] - 3-5 Days PRIMARY MD PIERO [Referring] - 3-5 Days JADE KATHLEEN MD [Staff Physician] - 3-5 Days CARLYN CALLOWAY MD [Staff Physician] - 03/28/21 Time of Disposition: 19:45
[2021-03-26 20:04] VITALS: BP 124/79
--- NOTE | 2021-03-27 10:33 | Electrocardiograph Report ---
[facility] Test Date: 2021-03-26 Test Time: 16:46:33 Pat Name: VIANNEY YAÑEZ Department: Room: Gender: F [employer]: ANAHI : 1990 Requested By: MONICO BUCHANAN Order Number: [id number] Reading MD: Edilia Richardson Measurements Intervals [place] Rate: 89 P: 60 PA: 177 QRS: 47 QRSD: 89 T: 59 QT: 351 QTc: 427 Interpretive Statements Sinus rhythm Compared to ECG 03/20/2021 04:20:31 No significant changes Electronically Signed On 03-27-2021 10:33:37 EST by Edilia Richardson
== END 2021-03-26 20:09 | disposition home or self-care (01) ==
LOC: ED 16:17
DX: R07.89 Other chest pain (principal); I10 Essential (primary) hypertension; Z98.51 Tubal ligation status; Z79.899 Other long term (current) drug therapy
CPT/HCPCS: 36415; 71046; 80053; 83690; 84484; 84703; 85025; 85379; 85610; 85730; 93005; 99284

== ENCOUNTER 2021-04-01 00:28 | Emergency (ER) | payer OTHER ==
[2021-04-01 00:51] VITALS: BP 124/80
[2021-04-01] MEDS ORDERED: CYCLOBENZAPRINE 10 MG TAB PO ONE (02:08)
[2021-04-01] MEDS ORDERED: KETOROLAC 10 MG TAB PO ONE (02:08)
--- NOTE | 2021-04-01 02:50 | Emergency Department Report ---
ED Back Pain/Injury HPI - General Chief Complaint: Back Pain/Injury Stated Complaint: back pain Time Seen by Provider: 04/01/21 01:56 Source: patient Limitations: No Limitations - History of Present Illness Initial Comments: This is a 30-year-old female nontoxic, well nourished in appearance, no acute signs of distress presents to the ED with c/o of acute on chronic lower back pain. Patient states has history of sciatica nerve pain which is similar symptoms as today. Patient states that pain radiates through to his left lower extremity. Patient denies any injuries or trauma. Denies any bladder or bowel instability. Patient denies any urinary symptoms. Denies any fever, chills, nausea, vomiting, headache, stiff neck, chest pain or shortness of breath. Patient denies any numbness or tingling. Denies any allergies. MD Complaint: back pain -: days(s) Similar Symptoms Previously: Yes Radiation: left leg Severity: mild Severity scale (0 -10): 3 Quality: aching, tingling Consistency: intermittent Improves With: immobilization, sitting upright Worsens With: movement, walking Associated Symptoms: denies other symptoms. denies: confusion, weakness, chest pain, numbness, difficulty walking, cough, difficulty urinating, diaphoresis, incontinence, fever/chills, constipation, headaches, abdominal pain, loss of appetite, malaise, nausea/vomiting, rash, seizure, shortness of breath, syncope - Related Data Previous Rx's Medication Instructions Recorded Last Taken Type Ibuprofen [Motrin 800 MG tab] 800 mg PO Q8HR PRN #20 tablet 09/28/15 Unknown Rx Ibuprofen [Motrin] 800 mg PO Q8HR PRN #15 tablet 03/23/16 Unknown Rx Ibuprofen [Motrin] 600 mg PO Q8H PRN #24 tablet 03/23/19 Unknown Rx Lidocaine Viscous 2% 10 ml MM DAILY PRN #120 udc 12/20/20 Unknown Rx Apixaban [Eliquis starter pack] 5 mg PO BID #60 tab.ds.pk 01/04/21 Unknown Rx Metoclopramide [Reglan] 10 mg PO ACHS #120 tablet 01/12/21 Unknown Rx traMADoL [Ultram] 50 mg PO Q6HR PRN #10 tablet 02/22/21 Unknown Rx Acetaminophen [Acetaminophen 8 650 mg PO Q8H PRN #12 tablet.er 12/14/21 Unknown Rx Hour] Cyclobenzaprine [Flexeril] 10 mg PO QHS PRN #10 tablet 04/01/21 Unknown Rx Allergies Allergy/AdvReac Type Severity Reaction Status Date / Time No Known Allergies Allergy Verified 03/26/21 17:13 ED Review of Systems ROS: Stated complaint: back pain Other details as noted in HPI Comment: All other systems reviewed and negative Constitutional: denies: chills, fever Eyes: denies: eye pain, eye discharge, vision change ENT: denies: ear pain, throat pain Respiratory: denies: cough, shortness of breath, wheezing Cardiovascular: denies: chest pain, palpitations Endocrine: no symptoms reported Gastrointestinal: denies: abdominal pain, nausea, diarrhea Genitourinary: denies: urgency, dysuria, discharge Musculoskeletal: back pain. denies: joint swelling, arthralgia Skin: denies: rash, lesions Neurological: denies: headache, weakness, paresthesias Psychiatric: denies: anxiety, depression Hematological/Lymphatic: denies: easy bleeding, easy bruising ED Past Medical Hx - Past Medical History Hx Hypertension: Yes (with eclampsia) Hx Diabetes: No Hx Deep Vein Thrombosis: No Hx Renal Disease: No Hx Sickle Cell Disease: No Hx Seizures: No Hx Asthma: No Hx HIV: No Additional medical history: PE-on eliquis ,heart murmur. eclampsia. pericarditis - Surgical History Additional Surgical History: TUBAL LIGATION - Social History Smoking Status: Never Smoker Substance Use Type: None - Medications Home Medications: Home Medications Medication Instructions Recorded Confirmed Last Taken Type Ibuprofen [Motrin 800 MG tab] 800 mg PO Q8HR PRN #20 tablet 09/28/15 03/26/21 Unknown Rx Ibuprofen [Motrin] 800 mg PO Q8HR PRN #15 tablet 03/23/16 03/26/21 Unknown Rx Ibuprofen [Motrin] 600 mg PO Q8H PRN #24 tablet 03/23/19 03/26/21 Unknown Rx Lidocaine Viscous 2% 10 ml MM DAILY PRN #120 udc 12/20/20 03/26/21 Unknown Rx Apixaban [Eliquis starter pack] 5 mg PO BID #60 tab.ds.pk 01/04/21 03/26/21 U nknown Rx Metoclopramide [Reglan] 10 mg PO ACHS #120 tablet 01/12/21 03/26/21 Unknown Rx traMADoL [Ultram] 50 mg PO Q6HR PRN #10 tablet 02/22/21 03/26/21 Unknown Rx Acetaminophen [Acetaminophen 8 650 mg PO Q8H PRN #12 tablet.er 04/01/21 Unknown Rx Hour] Cyclobenzaprine [Flexeril] 10 mg PO QHS PRN #10 tablet 04/01/21 Unknown Rx ED Physical Exam - General Limitations: No Limitations General appearance: alert, in no apparent distress - Head Head exam: Present: atraumatic, normocephalic - Eye Eye exam: Present: normal appearance - Neck Neck exam: Present: normal inspection, full ROM. Absent: lymphadenopathy - Respiratory Respiratory exam: Present: normal lung sounds bilaterally. Absent: respiratory distress, wheezes, rales, rhonchi, stridor, chest wall tenderness, accessory muscle use, decreased breath sounds, prolonged expiratory - Cardiovascular Cardiovascular Exam: Present: regular rate, normal rhythm, normal heart sounds. Absent: bradycardia, tachycardia, irregular rhythm, systolic murmur, diastolic murmur, rubs, gallop - GI/Abdominal GI/Abdominal exam: Present: soft, normal bowel sounds. Absent: distended, tenderness, guarding, rebound, rigid - Extremities Exam Extremities exam: Present: normal inspection, full ROM, normal capillary refill. Absent: tenderness, calf tenderness - Back Exam Back exam: Present: normal inspection, full ROM, paraspinal tenderness (left lumbar paraspinal). Absent: tenderness, CVA tenderness (R), CVA tenderness (L), muscle spasm, vertebral tenderness, rash noted - Expanded Back Exam Expanded Back exam: Absent: saddle anesthesia Back exam: Negative Straight Leg Raising: Left, Right - Neurological Exam Neurological exam: Present: alert, oriented X3, normal gait - Psychiatric Psychiatric exam: Present: normal affect, normal mood - Skin Skin exam: Present: warm, dry, intact, normal color. Absent: rash ED Course Vital Signs 04/01/21 00:51 Temperature 98.0 F Pulse Rate 86 Respiratory 17 Rate Blood Pressure 124/80 [Right] O2 Sat by Pulse 99 Oximetry - Reevaluation(s) Reevaluation #1: 04/01/21 02:47 Patient is speaking in full sentences with no signs of distress noted. ED Medical Decision Making - Medical Decision Making This is a 30-year-old female that presents with low back pain. Patient is stable was examined by me. There is no spinal tenderness. There is no cauda equina syndrome during examination. No bladder or bowel instability. Patient r eceived Toradol and Flexeril in the ED which stated that her symptoms has resolved and subsided. Patient is discharged with muscle relaxant and Tylenol. Patient stated that her boyfriend will drive her home after discharge due to possible drowsiness. Patient was instructed not to operate any machinery while taking muscle relaxant as they cause her drowsiness. Patient was referred to Follow-up with a primary care doctor in 3-5 days or if symptoms worsen and continue return to emergency room as soon as possible. At time of discharge, the patient does not seem toxic or ill in appearance. No acute signs of distress noted. Patient agrees to discharge treatment plan of care. No further questions noted by the patient. This chart is dictated with using [employer] Critical care attestation.: If time is entered above; I have spent that time in minutes in the direct care of this critically ill patient, excluding procedure time. ED Disposition Clinical Impression: Low back strain Qualifiers: Encounter type: initial encounter Qualified Code(s): S39.012A - Strain of muscle, fascia and tendon of lower back, initial encounter Sciatica Qualifiers: Laterality: left Qualified Code(s): M54.32 - Sciatica, left side Disposition: 01 HOME / SELF CARE / HOMELESS Is pt being admited?: No Does the pt Need Aspirin: No Condition: Stable Instructions: Cyclobenzaprine tablets, Lumbosacral Strain Additional Instructions: Follow-up with a primary care doctor in 3-5 days or if symptoms worsen and continue return to emergency room as soon as possible. Take Tylenol and Flexeril as prescribed. Do not operate heavy machinery while taking Flexeril due to sedation Prescriptions: Cyclobenzaprine [Flexeril] 10 mg PO QHS PRN #10 tablet PRN Reason: Muscle Spasm Acetaminophen [Acetaminophen 8 Hour] 650 mg PO Q8H PRN #12 tablet.er PRN Reason: Pain , Severe (7-10) Referrals: PRIMARY MD PIERO [Referring] - 3-5 Days JADE KATHLEEN MD [Staff Physician] - 3-5 Days Time of Disposition: 02:50
== END 2021-04-01 03:39 | disposition home or self-care (01) ==
LOC: ED 00:28
DX: S39.012A Strain of muscle, fascia and tendon of lower back, initial encounter (principal); M54.42 Lumbago with sciatica, left side; X58.XXXA Exposure to other specified factors, initial encounter; Y93.89 Activity, other specified; Y92.89 Other specified places as the place of occurrence of the external cause; Y99.8 Other external cause status
CPT/HCPCS: 99282

== ENCOUNTER 2021-04-22 18:43 | Emergency (ER) | payer OTHER ==
[2021-04-22 22:43] VITALS: BP 130/77
[2021-04-23] MEDS ORDERED: FAMOTIDINE 20 MG TAB PO ONE (00:18)
[2021-04-23] MEDS ORDERED: ONDANSETRON 4 MG ODT TAB PO ONE (00:18)
[2021-04-23] MEDS ORDERED: DICYCLOMINE 20 MG TAB PO ONE (00:18)
--- NOTE | 2021-04-23 00:35 | Emergency Department Report ---
ED N/V/D HPI - General Chief complaint: Abdominal Pain Stated complaint: ABD PAIN Source: patient Mode of arrival: Ambulatory Limitations: No Limitations - History of Present Illness Initial comments: Patient is a A0 30-year-old -[place] female with a history of PE who presents to the ED with complaint of acute onset persistent nausea, diarrhea and mild epigastric pain for the last 12 hours after eating food from a restaurant 24 hours ago. Patient states that no one else at home has had similar symptoms. Patient states that she has had multiple episodes of diarrhea but has not had any vomiting episodes except nausea. Patient denies fever, chills, chest pain or shortness of breath, dizziness, syncope, sore throat, headache, lightheadedness, dysuria, urinary frequency and urgency, vaginal bleeding or vaginal discharge, low back pain, cough or nasal and sinus congestion. MD complaint: nausea, diarrhea, abdominal pain (epigastric pain) -: Sudden, hour(s) (12) Description of Vomiting: food contents Description of Diarrhea: water, mucous Associated Abdominal Pain: Yes (mild epigastric discomfort) Location: epigastric Radiation: none Severity: mild Quality: aching, dull Consistency: intermittent Improves with: none Worsens with: eating Context: possible food poisoning Associated Symptoms: denies other symptoms, loss of appetite, malaise, nausea/vomiting, other (Diarrhea). denies: myalgias, chest pain, cough, diaphoresis, fever/chills, headaches, rash, dysuria, shortness of breath, syncope, weakness - Related Data Previous Rx's Medication Instructions Recorded Last Taken Type Ibuprofen [Motrin 800 MG tab] 800 mg PO Q8HR PRN #20 tablet 09/28/15 Unknown Rx Ibuprofen [Motrin] 800 mg PO Q8HR PRN #15 tablet 03/23/16 Unknown Rx Ibuprofen [Motrin] 600 mg PO Q8H PRN #24 tablet 03/23/19 Unknown Rx Lidocaine Viscous 2% 10 ml MM DAILY PRN #120 udc 12/20/20 Unknown Rx Apixaban [Eliquis starter pack] 5 mg PO BID #60 tab.ds.pk 01/04/21 Unknown Rx Metoclopramide [Reglan] 10 mg PO ACHS #120 tablet 01/12/21 Unknown Rx traMADoL [Ultram] 50 mg PO Q6HR PRN #10 tablet 02/22/21 Unknown Rx Acetaminophen [Acetaminophen 8 650 mg PO Q8H PRN #12 tablet.er 04/01/21 Unknown Rx Hour] Cyclobenzaprine [Flexeril] 10 mg PO QHS PRN #10 tablet 04/01/21 Unknown Rx Dicyclomine [Bentyl] 20 mg PO Q6H PRN #24 tablet 04/23/21 Unknown Rx Famotidine [Pepcid] 20 mg PO BID #30 tablet 04/23/21 Unknown Rx Ondansetron [Zofran Odt] 4 mg PO Q8HR PRN #15 tab.rapdis 04/23/21 Unknown Rx Allergies Allergy/AdvReac Type Severity Reaction Status Date / Time No Known Allergies Allergy Verified 03/26/21 17:13 ED Review of Systems ROS: Stated complaint: ABD PAIN Other details as noted in HPI Constitutional: malaise. denies: chills, diaphoresis, fever, weakness Eyes: denies: eye pain, eye discharge, vision change ENT: denies: ear pain, throat pain Respiratory: denies: cough, shortness of breath, wheezing Cardiovascular: denies: chest pain, palpitations Endocrine: no symptoms reported Gastrointestinal: abdominal pain (Mild epigastric discomfort), nausea, diarrhea. denies: vomiting Genitourinary: denies: urgency, dysuria, discharge Musculoskeletal: denies: back pain, joint swelling, arthralgia Skin: denies: rash, lesions Neurological: denies: headache, weakness, paresthesias Psychiatric: denies: anxiety, depression Hematological/Lymphatic: denies: easy bleeding, easy bruising ED Past Medical Hx - Past Medical History Hx Hypertension: Yes (with eclampsia) Hx Diabetes: No Hx Deep Vein Thrombosis: No Hx Pulmonary Embolism: Yes Hx Renal Disease: No Hx Sickle Cell Disease: No Hx Seizures: No Hx Asthma: No Hx HIV: No Additional medical history: PE-on eliquis ,heart murmur. eclampsia. pericarditis - Surgical History Past Surgical History?: No Additional Surgical History: TUBAL LIGATION - Social History Smoking Status: Never Smoker Substance Use Type: None - Medications Home Medications: Home Medications Medication Instructions Recorded Confirmed Last Taken Type Ibuprofen [Motrin 800 MG tab] 800 mg PO Q8HR PRN #20 tablet 09/28/15 03/26/21 Unknown Rx Ibuprofen [Motrin] 800 mg PO Q8HR PRN #15 tablet 03/23/16 03/26/21 Unknown Rx Ibuprofen [Motrin] 600 mg PO Q8H PRN #24 tablet 03/23/19 03/26/21 Unknown Rx Lidocaine Viscous 2% 10 ml MM DAILY PRN #120 udc 12/20/20 03/26/21 Unknown Rx Apixaban [Eliquis starter pack] 5 mg PO BID #60 tab.ds.pk 01/04/21 03/26/21 Unknown Rx Metoclopramide [Reglan] 10 mg PO ACHS #120 tablet 01/12/21 03/26/21 Unknown Rx traMADoL [Ultram] 50 mg PO Q6HR PRN #10 tablet 02/22/21 03/26/21 Unknown Rx Acetaminophen [Acetaminophen 8 650 mg PO Q8H PRN #12 tablet.er 04/01/21 Unknown Rx Hour] Cyclobenzaprine [Flexeril] 10 mg PO QHS PRN #10 tablet 04/01/21 Unknown Rx Dicyclomine [Bentyl] 20 mg PO Q6H PRN #24 tablet 04/23/21 Unknown Rx Famotidine [Pepcid] 20 mg PO BID #30 tablet 04/23/21 Unknown Rx Ondansetron [Zofran Odt] 4 mg PO Q8HR PRN #15 tab.rapdis 04/23/21 Unknown Rx ED Physical Exam - General Limitations: No Limitations General appearance: alert, in no apparent distress - Head Head exam: Present: atraumatic, normocephalic, normal inspection - Eye Eye exam: Present: normal appearance, PERRL, EOMI Pupils: Present: normal accommodation - ENT ENT exam: Present: normal exam, normal orophraynx, mucous membranes moist, TM's normal bilaterally, normal external ear exam - Neck Neck exam: Present: normal inspection, full ROM. Absent: tenderness - Respiratory Respiratory exam: Present: normal lung sounds bilaterally. Absent: respiratory distress, wheezes, rales, rhonchi, chest wall tenderness, accessory muscle use, decreased breath sounds - Cardiovascular Cardiovascular Exam: Present: regular rate, normal rhythm, normal heart sounds. Absent: systolic murmur, diastolic murmur, rubs, gallop - GI/Abdominal GI/Abdominal exam: Present: soft, normal bowel sounds. Absent: tenderness, guarding, rebound, hyperactive bowel sounds, hypoactive bowel sounds, organomegaly - Extremities Exam Extremities exam: Present: normal inspection, full ROM, normal capillary refill - Back Exam Back exam: Present: normal inspection, full ROM. Absent: tenderness, CVA tenderness (R), CVA tenderness (L), muscle spasm, paraspinal tenderness, vertebral tenderness - Neurological Exam Neurological exam: Present: alert, oriented X3, CN II-XII intact, normal gait, reflexes normal - Psychiatric Psychiatric exam: Present: normal affect, normal mood - Skin Skin exam: Present: warm, dry, intact, normal color. Absent: rash ED Course Vital Signs 04/22/21 22:42 Temperature 97.8 F Pulse Rate 78 Respiratory 17 Rate Blood Pressure 130/77 O2 Sat by Pulse 100 Oximetry ED Medical Decision Making - Medical Decision Making This is a A0 30-year-old -[place] female with a history of PE who presents to the ED with complaint of acute onset persistent nausea, diarrhea and mild epigastric pain for the last 12 hours after eating food from a restaurant 24 hours ago. Patient states that no one else at home has had similar symptoms. Patient states that she has had multiple episodes of diarrhea but has not had any vomiting episodes except nausea. In the ED, patient is alert and oriented x3 and is not in distress. Patient is hemodynamically stable. Patient was treated in the ED with antacids and antiemetics as well as antispasmodics. Patient symptoms are likely due to a viral gastroenteritis from food poisoning. Patient was advised to drink plenty of fluids, take medication as needed and follow-up with her primary care physician in 5 to 7 days for reevaluation. Indra oswald is advised return to the ED immediately if symptoms get worse. - Differential Diagnosis Gastroenteritis; dehydration; GERD; gastritis; Critical care attestation.: If time is entered above; I have spent that time in minutes in the direct care of this critically ill patient, excluding procedure time. ED Disposition Clinical Impression: Viral gastroenteritis, Diarrhea in adult patient GERD (gastroesophageal reflux disease) Qualifiers: Esophagitis presence: esophagitis presence not specified Qualified Code(s): K21.9 - Gastro-esophageal reflux disease without esophagitis Disposition: HOME / SELF CARE / HOMELESS Is pt being admited?: No Does the pt Need Aspirin: No Condition: Stable Instructions: Abdominal Pain (ED), Viral Gastroenteritis, Adult, [id number], Heartburn, [id number], Gastroesophageal Reflux Disease, Adult, [id number], Diarrhea, Adult, [id number] Additional Instructions: Take medication with food, drink plenty of fluids and follow-up with your primary care physician in 5 to 7 days for reevaluation. Return to the ED immediately if symptoms get worse. Prescriptions: Dicyclomine [Bentyl] 20 mg PO Q6H PRN #24 tablet PRN Reason: abdominal pain Famotidine [Pepcid] 20 mg PO BID #30 tablet Ondansetron [Zofran Odt] 4 mg PO Q8HR PRN #15 tab.rapdis PRN Reason: Nausea Referrals: [facility] [place] [Provider Group] - 3-5 Days Time of Disposition: 00:38 Print Language: MALTESE
== END 2021-04-23 02:13 | disposition home or self-care (01) ==
LOC: ED 18:43
DX: A08.4 Viral intestinal infection, unspecified (principal); R19.7 Diarrhea, unspecified; K21.9 Gastro-esophageal reflux disease without esophagitis; I10 Essential (primary) hypertension; Z98.51 Tubal ligation status
CPT/HCPCS: 99282; J3490; Q0162

== ENCOUNTER 2021-05-13 23:23 | Emergency (ER) | payer BC, OTHER ==
--- NOTE | 2021-05-14 08:52 | Electrocardiograph Report ---
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
== END 2021-05-14 05:41 ==
LOC: ED 23:23
DX: R07.9 Chest pain, unspecified (principal); Z53.21 Procedure and treatment not carried out due to patient leaving prior to being seen by health care provider
CPT/HCPCS: 93005; 93010

== ENCOUNTER 2021-05-17 20:06 | Emergency (ER) | payer BC, OTHER ==
[2021-05-17 20:19] VITALS: BP 137/82
--- NOTE | 2021-05-17 20:48 | Emergency Department Report ---
ED General Adult HPI - General Chief complaint: Chest Pain Stated complaint: Chest wall pain PUI?: No Time Seen by Provider: 05/17/21 20:35 Source: patient, RN notes reviewed, old records reviewed Mode of arrival: Ambulatory Limitations: No Limitations - History of Present Illness Initial comments: The patient was evaluated in the emergency department for symptoms described in the history of present illness. He/she was evaluated in the context of the global COVID-19 pandemic, which necessitated consideration that the patient might be at risk for infection with the virus that causes COVID-19. Institutional protocols and algorithms that pertain to the evaluation of patients at risk for COVID-19 are in a state of rapid change based on information released by regulatory bodies including the CDC and federal and state organizations. These policies and algorithms were followed during the patient's care in the emergency department. Please note that these policies, procedures and recommendations changed on a rapid basis. During the history and physical examination, I am chaperoned by Ai Kurtz This patient is a 30-year-old female. She is right-hand dominant. She is not known to myself previously. Patient presents to the ER today with a complaint of chest wall pain. The pain does not radiate anywhere. She denies vomiting, diaphoresis and exertional shortness of breath. The patient denies travel, surgery, immobilization, DVT, PE risk factors. The patient was seen here in December for chest pain, and had a CT scan of the chest which suggested the presence of a possible pulmonary embolism versus artifact. She was started on Eliquis anticoagulation. Since then, she has had [address] scans of the chest at this facility, which have been negative for pulmonary embolism. She also had a lower extremity DVT study which was negative for acute findings. The patient states that she is not , and reports that she is currently menstruating. The patient has not taken anything for pain. She remains compliant with her Eliquis therapy. She was a little bit reluctant to take her Eliquis today, b ecause she reports that she is currently menstruating. However, she did take her Eliquis today. She is seeking reassurance. This patient works in the [employer], and does quite a bit of heavy l ifting. She denies personal/family history of CAD PA, and to the best of her knowledge, there is no significant family history of DVT/PE. -: Gradual, Sudden Location: chest (Anterior chest wall) Radiation: non-radiation Consistency: constant Improves with: rest Worsens with: other (Palpation) Associated Symptoms: denies other symptoms, other (Mechanical paralumbar lower back pain) - Related Data Previous Rx's Medication Instructions Recorded Last Taken Type Ibuprofen [Motrin 800 MG tab] 800 mg PO Q8HR PRN #20 tablet 09/28/15 Unknown Rx Ibuprofen [Motrin] 800 mg PO Q8HR PRN #15 tablet 03/23/16 Unknown Rx Ibuprofen [Motrin] 600 mg PO Q8H PRN #24 tablet 03/23/19 Unknown Rx Lidocaine Viscous 2% 10 ml MM DAILY PRN #120 udc 12/20/20 Unknown Rx Apixaban [Eliquis starter pack] 5 mg PO BID #60 tab.ds.pk 01/04/21 Unknown Rx Metoclopramide [Reglan] 10 mg PO ACHS #120 tablet 01/12/21 Unknown Rx traMADoL [Ultram] 50 mg PO Q6HR PRN #10 tablet 02/22/21 Unknown Rx Acetaminophen [Acetaminophen 8 650 mg PO Q8H PRN #12 tablet.er 04/01/21 Unknown Rx Hour] Cyclobenzaprine [Flexeril] 10 mg PO QHS PRN #10 tablet 04/01/21 Unknown Rx Dicyclomine [Bentyl] 20 mg PO Q6H PRN #24 tablet 04/23/21 Unknown Rx Famotidine [Pepcid] 20 mg PO BID #30 tablet 04/23/21 Unknown Rx Ondansetron [Zofran Odt] 4 mg PO Q8HR PRN #15 tab.rapdis 04/23/21 Unknown Rx Allergies Allergy/AdvReac Type Severity Reaction Status Date / Time No Known Allergies Allergy Verified 03/26/21 17:13 ED Review of Systems ROS: Stated complaint: CHEST PAIN/CHEST DISCOMFORT Other details as noted in HPI Comment: All other systems reviewed and negative Cardiovascular: other (Chest wall pain) Genitourinary: other (Active menstruation. Not symptomatic) Musculoskeletal: back pain (Lower back pain) ED Past Medical Hx - Past Medical History Previous Medical History?: Yes Hx Hypertension: Yes (with eclampsia) Hx Diabetes: No Hx Deep Vein Thrombosis: No Hx Pulmonary Embolism: Yes Hx Renal Disease: No Hx Sickle Cell Disease: No Hx Seizures: No Hx Asthma: No Hx HIV: No Additional medical history: PE-on eliquis ,heart murmur, Blood clots. eclampsia. pericarditis - Surgical History Past Surgical History?: Yes Additional Surgical History: TUBAL LIGATION - Social History Smoking Status: Never Smoker Substance Use Type: None - Medications Home Medications: Home Medications Medication Instructions Recorded Confirmed Last Taken Type Ibuprofen [Motrin 800 MG tab] 800 mg PO Q8HR PRN #20 tablet 09/28/15 03/26/21 Unknown Rx Ibuprofen [Motrin] 800 mg PO Q8HR PRN #15 tablet 03/23/16 03/26/21 Unknown Rx Ibuprofen [Motrin] 600 mg PO Q8H PRN #24 tablet 03/23/19 03/26/21 Unknown Rx Lidocaine Viscous 2% 10 ml MM DAILY PRN #120 udc 12/20/20 03/26/21 Unknown Rx Apixaban [Eliquis starter pack] 5 mg PO BID #60 tab.ds.pk 01/04/21 03/26/21 Unknown Rx Metoclopramide [Reglan] 10 mg PO ACHS #120 tablet 01/12/21 03/26/21 Unknown Rx traMADoL [Ultram] 50 mg PO Q6HR PRN #10 tablet 02/22/21 03/26/21 Unknown Rx Acetaminophen [Acetaminophen 8 650 mg PO Q8H PRN #12 tablet.er 04/01/21 Unknown Rx Hour] Cyclobenzaprine [Flexeril] 10 mg PO QHS PRN #10 tablet 04/01/21 Unknown Rx Dicyclomine [Bentyl] 20 mg PO Q6H PRN #24 tablet 04/23/21 Unknown Rx Famotidine [Pepcid] 20 mg PO BID #30 tablet 04/23/21 Unknown Rx Ondansetron [Zofran Odt] 4 mg PO Q8HR PRN #15 tab.rapdis 04/23/21 Unknown Rx ED Physical Exam - General Limitations: No Limitations General appearance: alert, in no apparent distress - Head Head exam: Present: atraumatic, normocephalic - Eye Eye exam: Present: normal appearance, EOMI. Absent: nystagmus - ENT ENT exam: Present: normal exam, normal orophraynx, mucous membranes moist, normal external ear exam - Neck Neck exam: Present: normal inspection, full ROM. Absent: tenderness, meningismus - Respiratory Respiratory exam: Present: normal lung sounds bilaterally, chest wall tenderness. Absent: respiratory distress, wheezes, rales, rhonchi, stridor - Cardiovascular Cardiovascular Exam: Present: regular rate, normal rhythm, normal heart sounds. Absent: bradycardia, tachycardia, irregular rhythm, systolic murmur, diastolic murmur, rubs, gallop - GI/Abdominal GI/Abdominal exam: Present: soft, normal bowel sounds. Absent: distended, tenderness, guarding, rebound, rigid, pulsatile mass - Extremities Exam Extremities exam: Present: normal inspection, full ROM, other (2+ pulses noted in the bilateral upper and lower extremities. There is no palpable cord. negative Homans sign. Muscular compartments are soft. The pelvis is stable.). Absent: pedal edema, calf tenderness - Back Exam Back exam: Present: normal inspection. Absent: tenderness, CVA tenderness (R), CVA tenderness (L), paraspinal tenderness, vertebral tenderness - Neurological Exam Neurological exam: Present: alert, oriented X3, normal gait, other (No facial droop. Tongue midline. Extraocular movements intact bilaterally. Facial sensation intact to light touch in V1, V2, V3 distribution bilaterally. 5 and a 5 strength in 4 extremities. Sensation intact to light touch in 4 extremities.). Absent: motor sensory deficit - Psychiatric Psychiatric exam: Present: normal affect, normal mood - Skin Skin exam: Present: warm, dry, intact, normal color. Absent: rash ED Course Vital Signs 05/17/21 20:12 Temperature 98.6 F Pulse Rate 94 H Respiratory 18 Rate Blood Pressure 137/82 O2 Sat by Pulse 100 Oximetry ED Medical Decision Making - Lab Data Vital Signs 05/17/21 20:12 Temperature 98.6 F Pulse Rate 94 H Respiratory 18 Rate Blood Pressure 137/82 O2 Sat by Pulse 100 Oximetry - EKG Data -: EKG Interpreted by Mo EKG shows normal: sinus rhythm Rate: normal - EKG Data When compared to previous EKG there are: no significant change Interpretation: unchanged when compared t (May 14, 2019) 05/17/21 20:51 The EKG is interpreted 2 0: 15 Sinus rhythm, 86 bpm. Normal axis, normal P wave axis, high left ventricular voltage. Abnormal EKG. Not a STEMI. - Radiology Data Radiology results: pending, report reviewed, image reviewed [facility] [address] [place] [address] Cat Scan Report Signed Patient: VIANNEY YAÑEZ MR#: [id number] : 1990 Acct:[id number] Age/Sex: 30 / F ADM Date: 01/02/21 Loc: ED Attending Dr: Ordering Physician: KIKE MAGANA Date of Service: 01/03 Procedure(s): CT angio chest Accession Number(s): [id number] cc: KIKE MAGANA CTA CHEST WITH CONTRAST INDICATION / CLINICAL INFORMATION: Chest pain x 2 weeks, Hx of Pericardial Effusion. TECHNIQUE: Axial CT images were obtained through the chest after injection of IV contrast. 3 plane MIP and/or 3D reconstructions were produced. All CT scans at this location are performed using CT dose reduction for ALARA by means of automated exposure control. COMPARISON: None available. FINDINGS: The central pulmonary arteries are patent. There are areas of low density within the right lower lung pulmonary arteries, axial image 217. Some heterogeneous areas in the peripheral upper and lower pulmonary arteries bilaterally. Some motion artifact slightly limits examination. Heart is mildly enlarged. IMPRESSION: 1. The central pulmonary arteries are patent. There are areas of low attenuation within the segmental and peripheral pulmonary arteries. These findings could be related to the significant motion artifact throughout the examination however these areas could also represent segmental peripheral PTE's. CRITICAL RESULT: Time of Discovery (DEADENER/CDT): 230 Time of Communication (DEADENER/CDT): 230 Licensed Practitioner Receiving Report: Kobe Read-Back Performed: Yes. Signer Name: Norberto Westfall MD Signed: 01/03/2021 3:35 AM Workstation Name: [id number] Transcribed By: CW Dictated By: GRAY WESTFALL MD Electronically Authenticated By: GRAY WESTFALL MD Signed Date/Time: 01/03/21 0335 DD/ [address] [address] Cat Scan Report Signed Patient: VIANNEY YAÑEZ MR#: [id number] : 1990 Acct:[id number] Age/Sex: 30 / F ADM Date: 02/10/21 Loc: ED Attending Dr: Ordering Physician: KIKE ANTOINE Date of Service: 02/11/21 Procedure(s): CT angio chest Accession Number(s): [id number] cc: KIKE ANTOINE CTA CHEST WITH CONTRAST INDICATION / CLINICAL INFORMATION: Chest pain, Hx of prior P.E. x 1 month ago.. TECHNIQUE: Axial CT images were obtained through the chest after injection of IV contrast. 3 plane MIP and/or 3D reconstructions were produced. All CT scans at this location are performed using CT dose reduction for ALARA by means of automated exposure control. COMPARISON: 01/28/2021 FINDINGS: The main pulmonary arteries are patent without filling defect. Contrast bolus timing is slightly suboptimal and peripheral pulmonary arteries are not well seen. Chronic interstitial change within the lungs. No focal area of opacity or pleural effusion no pneumothorax. [address] [address] Cat Scan Report Signed Patient: VIANNEY YAÑEZ MR#: [id number] : 1990 Acct:[id number] Age/Sex: 30 / F ADM Date: 01/28/21 Loc: ED Attending Dr: Ordering Physician: SYLVIA MIGUEL MD Date of Service: 01/28/21 Procedure(s): CT angio chest Accession Number(s): [id number] cc: SYLVIA MIGUEL MD CTA CHEST WITH CONTRAST INDICATION / CLINICAL INFORMATION: chest pain h/o PE. TECHNIQUE: Axial CT images were obtained through the chest after injection of IV contrast. 3 plane MIP and/or 3D reconstructions were produced. All CT scans at this location are performed using CT dose reduction for ALARA by means of automated exposure control. COMPARISON: 01/03/2021 FINDINGS: Examination is moderately degraded secondary to patient respiratory motion. PULMONARY ARTERIES: No pulmonary emboli to the level of the lobar pulmonary arteries. THORACIC AORTA: No significant abnormality. HEART: No significant abnormality. CORONARY ARTERY CALCIFICATION: None. MEDIASTINUM / BULL: No significant abnormality. PLEURA: No pleural effusion. No pneumothorax. LUNGS: No acute air space or interstitial disease. ADDITIONAL FINDINGS: None. UPPER ABDOMEN: No acute findings. SKELETAL STRUCTURES: No significant osseous abnormality. IMPRESSION: 1. Examination is moderately degraded secondary to patient respiratory motion. No evidence of pulmonary thromboembolism to the level of the lobar pulmonary arteries. 2. No acute findings. Signer Name: Corbin Guzmán MD Signed: 01/28/2021 9:32 PM Workstation Name: [id number] Transcribed By: SB Dictated By: CORBIN GUZMÁN MD Electronically Authenticated By: CORBIN GUZMÁN MD Signed Date/Time: 01/28/212131 DD/ 28 [facility] [address] [id number] Vascular Lab Report Signed Patient: VIANNEY YAÑEZ MR#: [id number] : 1990 Acct:[id number] Age/Sex: 30 / F ADM Date: 01/28/21 Loc: ED Attending Dr: Ordering Physician: ALMA CELAYA NP Date of Service: 01/28/21 Procedure(s): VL venous duplex LE BILAT Accession Number(s): [id number] cc: ALMA CELAYA NP DUPLEX DOPPLER LOWER EXTREMITY VEINS, BILATERAL INDICATION / CLINICAL INFORMATION: Bilateral leg pain. TECHNIQUE: Duplex doppler imaging was performed through the veins of both lower extremities using venous compression and other maneuvers. COMPARISON: None available. FINDINGS: RIGHT COMMON FEMORAL VEIN: Negative. RIGHT FEMORAL VEIN: Negative. RIGHT POPLITEAL VEIN: Negative. RIGHT CALF VEINS: Negative. LEFT COMMON FEMORAL VEIN: Negative. LEFT FEMORAL VEIN: Negative. LEFT POPLITEAL VEIN: Negative. LEFT CALF VEINS: Negative. ADDITIONAL FINDINGS: No abnormal mass or fluid collection is seen IMPRESSION: No sonographic evidence for DVT in either lower extremity. Signer Name: Moose Louise MD Signed: 01/28/2021 5:03 PM Workstation Name: [id number] Transcribed By: RT Dictated By: Moose Louise MD Electronically Authenticated By: Moose Louise MD Signed Date/Time: 01/28/21 170 DD/ 01 TD/TT: - Medical Decision Making Differential diagnosis, including but not limited to: Costochondritis Assessment and plan: 30-year-old female, who was afebrile, with reassuring vital signs, who is not currently tachycardic, tachypneic or hypoxic, who denies DVT/PE risk factors, and is low risk by Wells criteria for pulmonary embolism and or DVT at this time, who has had multiple negative CT scans of the chest at this facility, and her initial CT in December 2020 is a limited study, uncertain if artifact versus peripheral PTE. Nevertheless, this patient had a CT scan of the chest January, both of which were negative for pulmonary embolism, and also a lower extremity DVT study. Her chest wall pain is reproducible. Lung sounds are clear. When I walked into the room to examine the patient, she is currently on her cellular phone, not in any acute distress It is more than 3 months since initial diagnosis, it would be reasonable to discontinue anticoagulation at this time. Tylenol for pain, close outpatient follow-up with primary care doctor at [facility] for evaluation f or discontinuation of anticoagulation. We'll also refer patient to a color buffer for convenience. She has followed up as an outpatient with a school bus monitor, she does not believe that she is hypercoagulable. Critical care attestation.: If time is entered above; I have spent that time in minutes in the direct care of this critically ill patient, excluding procedure time. ED Disposition Clinical Impression: Chest wall pain Disposition: 01 HOME / SELF CARE / HOMELESS Is pt being admited?: No Does the pt Need Aspirin: No Condition: Stable Instructions: Costochondritis Additional Instructions: Rest, and avoid heavy lifting. Alternate ice packs and heat packs as needed for physical pain. Follow-up with your outpatient primary care doctor or color buffer within the next week. Patient's initial CT scan was performed in December 2020, and was an inconclusive study. In addition, patient has been maintained on anticoagulation for more than 3 months at this point time, and it may be reasonable to discontinue systemic anticoagulation. Therefore, the patient should follow-up as soon as possible with the outpatient color buffer or primary care doctor for clearance to discontinue therapeutic anticoagulation/Lovenox. The patient may also take [id number] Tylenol/acetaminophen [id number] as needed for physical pain. Please return to the emergency room right away with new pain, worsened pain, migration of pain, projectile vomiting, change in mental status, confusion, inability tolerate liquid feeds, new, worsened or different symptoms not present on the initial emergency room evaluation Referrals: [facility] [Provider Group] - 3-5 Days PANKAJ RENDON MD [Staff Physician] - 3-5 Days Forms: Work/School Release Form(ED)
--- NOTE | 2021-05-18 09:10 | Electrocardiograph Report ---
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
== END 2021-05-17 21:30 | disposition home or self-care (01) ==
LOC: ED 20:06
DX: R07.89 Other chest pain (principal); I10 Essential (primary) hypertension; I26.99 Other pulmonary embolism without acute cor pulmonale; Z79.899 Other long term (current) drug therapy; Z98.890 Other specified postprocedural states
CPT/HCPCS: 93005; 93010; 99282

== ENCOUNTER 2021-05-24 17:09 | Emergency (ER) | payer BC, OTHER ==
[2021-05-24 17:24] VITALS: BP 137/81
[2021-05-24] MEDS ORDERED: ASPIRIN 325 MG TAB PO ONE (21:31)
--- NOTE | 2021-05-24 22:26 | XRay Report ---
XR chest 1V ap INDICATION / CLINICAL INFORMATION: left-sided chest pain COMPARISON: 03/26/2021 FINDINGS: SUPPORT DEVICES: None. HEART / MEDIASTINUM: No significant abnormality. LUNGS / PLEURA: Lungs are clear. Costophrenic sulci are sharp. No pneumothorax. ADDITIONAL FINDINGS: No significant additional findings. IMPRESSION: 1. No acute findings. Signer Name: Mustapha Rashid MD Signed: 05/24/2021 10:22 PM Workstation Name: [id number]
[2021-05-24 23:47] LABS: Basophils % (Auto) 0.2 % (0.0-1.8); Eosinophils % (Auto) 0.7 % (0.0-4.3); Lymphocytes # (Auto) 2.1 K/mm3 (1.2-5.4); Monocytes # (Auto) 0.3 K/mm3 (0.0-0.8); Monocytes % (Auto) 5.3 % (0.0-7.3)
[2021-05-25 00:05] LABS: Alanine Aminotransferase 13 units/L (7-56); Albumin 4.3 g/dL (3.9-5); Blood Urea Nitrogen 10 mg/dL (7-17); Hemolysis Index 0
[2021-05-25 00:07] LABS: BUN/Creatinine Ratio 20
[2021-05-25 00:21] LABS: Hematocrit 30.8 % (30.3-42.9); Hemoglobin 9.7 gm/dl (10.1-14.3); Mean Corpuscular HGB Conc 31 % (30-34); Mean Corpuscular Volume 79 fl (79-97); Red Blood Count 3.88 M/mm3 (3.65-5.03); Red Cell Distribution Width 17.1 % (13.2-15.2)
[2021-05-25 00:22] LABS: Platelet Count 267 K/mm3 (140-440)
--- NOTE | 2021-05-25 00:49 | Emergency Department Report ---
ED Chest Pain HPI - General Chief Complaint: Chest Pain Stated Complaint: CHEST PAIN Source: patient Mode of arrival: Ambulatory Limitations: No Limitations - History of Present Illness Initial Comments: Patient is a 30-year-old -[place] female with a history of PE and pr eviously on Eliquis but has since stopped taking the medication about a month ago, presents to the ED with complaint of acute onset persistent intermittent left-sided chest pain for the last 3 weeks. Patient states that the pain is worse with physical activity or palpation of her left chest wall when present. Patient denies dizziness, syncope, headache, nausea and vomiting, diaphoresis, palpitations, back pain, traumatic injury, abdominal pain, cough, fever, chills, sore throat, nasal and sinus congestion or neck pain. MD Complaint: chest pain (LEFT-SIDED CHEST PAIN) -: Sudden, week(s) (3) Onset: during rest, during exertion Pain Location: left chest Pain Radiation: none Severity scale (0 -10): 0 Quality: aching, dull Consistency: intermittent Improves With: nothing Worsens With: nothing re: denies: nausea, vomting, diaphoresis Other Symptoms: denies: cough, fever, syncope, rash, acid taste in mouth, leg swelling, palpitations, burping, other Treatments Prior to Arrival: none Aspirin use within the Past 7 Days: (0) No - Related Data On Oral Contraceptives: No Previous Rx's Medication Instructions Recorded Last Taken Type Ibuprofen [Motrin 800 MG tab] 800 mg PO Q8HR PRN #20 tablet 09/28/15 Unknown Rx Ibuprofen [Motrin] 800 mg PO Q8HR PRN #15 tablet 03/23/16 Unknown Rx Ibuprofen [Motrin] 600 mg PO Q8H PRN #24 tablet 03/23/19 Unknown Rx Lidocaine Viscous 2% 10 ml MM DAILY PRN #120 udc 12/20/20 Unknown Rx Apixaban [Eliquis starter pack] 5 mg PO BID #60 tab.ds.pk 01/04/21 Unknown Rx Metoclopramide [Reglan] 10 mg PO ACHS #120 tablet 01/12/21 Unknown Rx traMADoL [Ultram] 50 mg PO Q6HR PRN #10 tablet 02/22/21 Unknown Rx Acetaminophen [Acetaminophen 8 650 mg PO Q8H PRN #12 tablet.er 04/01/21 Unknown Rx Hour] Cyclobenzaprine [Flexeril] 10 mg PO QHS PRN #10 tablet 04/01/21 Unknown Rx Dicyclomine [Bentyl] 20 mg PO Q6H PRN #24 tablet 04/23/21 Unknown Rx Famotidine [Pepcid] 20 mg PO BID #30 tablet 04/23/21 Unknown Rx Ondansetron [Zofran Odt] 4 mg PO Q8HR PRN #15 tab.rapdis 04/23/21 Unknown Rx Naproxen 500 mg PO Q12H PRN #24 tab 05/25/21 Unknown Rx Allergies Allergy/AdvReac Type Severity Reaction Status Date / Time No Known Allergies Allergy Verified 05/24/21 17:17 Heart Score - HEART Score History: Slightly suspicious EKG: Normal Age: < 45 Risk factors: No known risk factors Troponin: < normal limit HEART Score: 0 - EKG Read Time Time EKG Completed: 17:15 EKG Read Time: 17:20 - Critical Actions Critical Actions: 0-3 pts:0.9-1.7%risk of adverse cardiac event.Candidate for discharge ED Review of Systems ROS: Stated complaint: CHEST PAIN Other details as noted in HPI Constitutional: denies: chills, fever Eyes: denies: eye pain, eye discharge, vision change ENT: denies: ear pain, throat pain Respiratory: denies: cough, shortness of breath, wheezing Cardiovascular: chest pain (Left-sided chest pain). denies: palpitations Endocrine: no symptoms reported Gastrointestinal: denies: abdominal pain, nausea, vomiting, diarrhea Genitourinary: denies: urgency, dysuria, discharge Musculoskeletal: denies: back pain, joint swelling, arthralgia Skin: denies: rash, lesions Neurological: denies: headache, weakness, paresthesias Psychiatric: denies: anxiety, depression Hematological/Lymphatic: denies: easy bleeding, easy bruising ED Past Medical Hx - Past Medical History Hx Hypertension: Yes (with eclampsia) Hx Diabetes: No Hx Deep Vein Thrombosis: No Hx Pulmonary Embolism: Yes Hx Renal Disease: No Hx Sickle Cell Disease: No Hx Seizures: No Hx Asthma: No Hx HIV: No Additional medical history: PE-on eliquis ,heart murmur, Blood clots. eclampsia. pericarditis - Surgical History Additional Surgical History: TUBAL LIGATION - Social History Smoking Status: Never Smoker Substance Use Type: None - Medications Home Medications: Home Medications Medication Instructions Recorded Confirmed Last Taken Type Ibuprofen [Motrin 800 MG tab] 800 mg PO Q8HR PRN #20 tablet 09/28/15 03/26/21 Unknown Rx Ibuprofen [Motrin] 800 mg PO Q8HR PRN #15 tablet 03/23/16 03/26/21 Unknown Rx Ibuprofen [Motrin] 600 mg PO Q8H PRN #24 tablet 03/23/19 03/26/21 Unknown Rx Lidocaine Viscous 2% 10 ml MM DAILY PRN #120 udc 12/20/20 03/26/21 Unknown Rx Apixaban [Eliquis starter pack] 5 mg PO BID #60 tab.ds.pk 01/04/21 03/26/21 Unknown Rx Metoclopramide [Reglan] 10 mg PO ACHS #120 tablet 01/12/21 03/26/21 Unknown Rx traMADoL [Ultram] 50 mg PO Q6HR PRN #10 tablet 02/22/21 03/26/21 Unknown Rx Acetaminophen [Acetaminophen 8 650 mg PO Q8H PRN #12 tablet.er 04/01/21 Unknown Rx Hour] Cyclobenzaprine [Flexeril] 10 mg PO QHS PRN #10 tablet 04/01/21 Unknown Rx Dicyclomine [Bentyl] 20 mg PO Q6H PRN #24 tablet 04/23/21 Unknown Rx Famotidine [Pepcid] 20 mg PO BID #30 tablet 04/23/21 Unknown Rx Ondansetron [Zofran Odt] 4 mg PO Q8HR PRN #15 tab.rapdis 04/23/21 Unknown Rx Naproxen 500 mg PO Q12H PRN #24 tab 05/25/21 Unknown Rx ED Physical Exam - General Limitations: No Limitations General appearance: alert, in no apparent distress - Head Head exam: Present: atraumatic, normocephalic, normal inspection - Eye Eye exam: Present: normal appearance, PERRL, EOMI Pupils: Present: normal accommodation - ENT ENT exam: Present: normal exam, normal orophraynx, mucous membranes moist, TM's normal bilaterally, normal external ear exam - Neck Neck exam: Present: normal inspection, full ROM. Absent: tenderness - Respiratory Respiratory exam: Present: normal lung sounds bilaterally, chest wall tenderness (Palpable reproducible left-sided chest wall tenderness). Absent: respiratory distress, wheezes, rales, rhonchi, accessory muscle use, decreased breath sounds, prolonged expiratory - Cardiovascular Cardiovascular Exam: Present: normal rhythm, tachycardia, normal heart sounds. Absent: systolic murmur, diastolic murmur, rubs, gallop - GI/Abdominal GI/Abdominal exam: Present: soft, normal bowel sounds. Absent: distended, tenderness, guarding, rebound, hyperactive bowel sounds, hypoactive bowel sounds, organomegaly, mass - Extremities Exam Extremities exam: Present: normal inspection, full ROM, normal capillary refill - Back Exam Back exam: Present: normal inspection, full ROM. Absent: tenderness, CVA tenderness (R), CVA tenderness (L), muscle spasm, paraspinal tenderness - Neurological Exam Neurological exam: Present: alert, oriented X3, CN II-XII intact, normal gait, reflexes normal - Psychiatric Psychiatric exam: Present: normal affect, normal mood - Skin Skin exam: Present: warm, dry, intact, normal color. Absent: rash ED Course Vital Signs 05/24/21 05/25/21 17:23 01:30 Temperature 97.7 F Pulse Rate 106 H 77 Respiratory 18 17 Rate Blood Pressure 137/81 [Right] O2 Sat by Pulse 100 98 Oximetry KATHARINE score - Katharine Score Age > 65: (0) No Aspirin use within the Past 7 Days: (0) No 3 or more CAD Risk Factors: (0) No 2 or more Angina events in past 24 hrs: (0) No Known CAD with more than 50% Stenosis: (0) No Elevated Cardiac Markers: (0) No ST Deviation Greater than 0.5mm: (0) No KATHARINE Score: 0 ED Medical Decision Making - Lab Data Result diagrams: 05/24/21 21:46 05/24/21 21:46 - EKG Data EKG shows normal: sinus rhythm Rate: normal - EKG Data Interpretation: normal EKG 05/25/21 05:57 EKG shows normal sinus rhythm with a ventricular rate of [address] or T wave abnormalities. - Radiology Data Radiology results: report reviewed, image reviewed Chest x-ray showed no acute cardiopulmonary abnormalities or pneumonitis - Medical Decision Making This is a 30-year-old -[place] female with a history of PE and previously on Eliquis but has since stopped taking the medication about a month ago, presents to the ED with complaint of acute onset persistent intermittent left-sided chest pain for the last 3 weeks. Patient states that the pain is worse with physical activity or palpation of her left chest wall when present. In the ED, patient is alert and oriented x3 and is not in distress. EKG shows normal sinus rhythm with a ventricular rate of [address] or T wave abnormalities. Chest x-ray shows no acute cardiopulmonary abnormalities or pneumonitis. Lab test results were reviewed and are all nonactionable including D-dimer levels and troponin levels. Patient was treated for pain with aspirin. Patient's heart score is 0, and patient is D-dimer level is negative. Patient is currently not on Eliquis. Patient is unlikely to have a PE because of negative D-dimer and the patient's symptoms are likely costochondritis or muscle strain of chest wall worsened by her anxiety. Patient was therefore discharged home on pain medications and advised to follow-up with her primary care physician in 5 to 7 days for reevaluation or return to the ED immediately if her symptoms get worse. - Differential Diagnosis ACS; PE; pneumonia; bronchitis; muscle strain; costochondritis; anxiety Critical care attestation.: If time is entered above; I have spent that time in minutes in the direct care of this critically ill patient, excluding procedure time. ED Disposition Clinical Impression: Nonspecific chest pain, Acute costochondritis Disposition: 01 HOME / SELF CARE / HOMELESS Is pt being admited?: No Does the pt Need Aspirin: No Condition: Stable Instructions: Costochondritis, [id number], Nonspecific Chest Pain, Adult, [id number] Additional Instructions: All lab test results were reviewed and are all nonactionable. There is no sign of any pulmonary embolism in your lungs, and your symptoms are not likely to be due to a cardiac event or pathology because of no risk factors for heart disease. Therefore your symptoms are likely musculoskeletal, thus take medications as needed for pain, drink plenty of fluids and follow-up with your primary care physician in 5 to 7 days for reevaluation. Return to the ED immediately if symptoms get worse. Prescriptions: Naproxen 500 mg PO Q12H PRN #24 tab PRN Reason: Pain , Severe (7-10) Referrals: [facility] [Provider Group] - 3-5 Days Time of Disposition: 00:46 Print Language: MALTESE
--- NOTE | 2021-05-25 14:37 | Electrocardiograph Report ---
[facility] Test Date: 2021-05-24 Test Time: 17:15:29 Pat Name: VIANNEY YAÑEZ Department: Room: Gender: F [place]: ANTOLIN : 1990 Requested By: MILAN ORELLANA Order Number: [id number] Reading MD: Juvencio Peralta Measurements Intervals [place] Rate: 96 P: 71 VA: 166 QRS: 62 QRSD: 85 T: 74 QT: 336 QTc: 425 Interpretive Statements Sinus rhythm Compared to ECG 05/17/2021 20:15:53 No significant changes Electronically Signed On 05-25-2021 14:36:28 EST by Juvencio Peralta
== END 2021-05-25 01:30 | disposition home or self-care (01) ==
LOC: ED 17:09
DX: M94.0 Chondrocostal junction syndrome [Tietze] (principal); R07.9 Chest pain, unspecified; I10 Essential (primary) hypertension; Z98.51 Tubal ligation status
CPT/HCPCS: 36415; 71045; 80053; 84484; 85025; 85379; 93005; 93010; 99284

== ENCOUNTER 2021-06-18 20:14 | Emergency (ER) | payer BC, OTHER ==
[2021-06-18 20:46] VITALS: BP 146/84
[2021-06-18] MEDS ORDERED: ACETAMINOPHEN 500 MG TAB PO ONE (21:53)
--- NOTE | 2021-06-18 21:58 | Emergency Department Report ---
ED General Adult HPI - General Chief complaint: Chest Pain Stated complaint: CHEST PAIN/SOB Time Seen by Provider: 06/18/21 21:51 Source: patient Mode of arrival: Ambulatory Limitations: No Limitations - History of Present Illness Initial comments: Patient 30-year-old -[place] female who presents for chest wall pain x2 days. Patient has history of endocarditis 2 weeks ago. Patient being currently followed by [facility] cardiology Dr. An. Current treatment regimen includes ibuprofen 600 mg p.o. 3 times daily, colchicine 0.6 mg p.o. daily patient denies dizziness, no nausea, no vomiting, no lightheadedness, nausea or vomiting. There is no shortness of breath. As are exacerbated by deep inspiration and palpation. Symptoms are relieved by nothing tried. Last menstrual cycle last menstrual cycle 3 days ago. Patient drove self to ED tonight patient is alert oriented x3 patient appears nontoxic at this time. - Related Data Previous Rx's Medication Instructions Recorded Last Taken Type Ibuprofen [Motrin 800 MG tab] 800 mg PO Q8HR PRN #20 tablet 09/28/15 Unknown Rx Ibuprofen [Motrin] 800 mg PO Q8HR PRN #15 tablet 03/23/16 Unknown Rx Ibuprofen [Motrin] 600 mg PO Q8H PRN #24 tablet 03/23/19 Unknown Rx Lidocaine Viscous 2% 10 ml MM DAILY PRN #120 udc 12/20/20 Unknown Rx Apixaban [Eliquis starter pack] 5 mg PO BID #60 tab.ds.pk 01/04/21 Unknown Rx Metoclopramide [Reglan] 10 mg PO ACHS #120 tablet 01/12/21 Unknown Rx traMADoL [Ultram] 50 mg PO Q6HR PRN #10 tablet 02/22/21 Unknown Rx Acetaminophen [Acetaminophen 8 650 mg PO Q8H PRN #12 tablet.er 04/01/21 Unknown Rx Hour] Cyclobenzaprine [Flexeril] 10 mg PO QHS PRN #10 tablet 04/01/21 Unknown Rx Dicyclomine [Bentyl] 20 mg PO Q6H PRN #24 tablet 04/23/21 Unknown Rx Famotidine [Pepcid] 20 mg PO BID #30 tablet 04/23/21 Unknown Rx Ondansetron [Zofran Odt] 4 mg PO Q8HR PRN #15 tab.rapdis 04/23/21 Unknown Rx Naproxen 500 mg PO Q12H PRN #24 tab 05/25/21 Unknown Rx Acetaminophen/Codeine [Tylenol 1 tab PO Q8H PRN #9 tab 06/18/21 Unknown Rx /Codeine # 3 tab] Allergies Allergy/AdvReac Type Severity Reaction Status Date / Time No Known Allergies Allergy Verified 05/24/21 17:17 ED Review of Systems ROS: Stated complaint: CHEST PAIN/SOB Other details as noted in HPI Constitutional: denies: chills, fever Eyes: denies: eye pain, eye discharge, vision change ENT: denies: ear pain, throat pain Respiratory: denies: cough, shortness of breath, wheezing Cardiovascular: chest pain. denies: palpitations Endocrine: no symptoms reported Gastrointestinal: denies: abdominal pain, nausea, diarrhea Genitourinary: denies: urgency, dysuria, discharge Musculoskeletal: denies: back pain, joint swelling, arthralgia Skin: denies: rash, lesions Neurological: headache Psychiatric: denies: anxiety, depression Hematological/Lymphatic: denies: easy bleeding, easy bruising ED Past Medical Hx - Past Medical History Previous Medical History?: Yes Hx Hypertension: Yes (with eclampsia) Hx Diabetes: No Hx Deep Vein Thrombosis: No Hx Pulmonary Embolism: Yes Hx Renal Disease: No Hx Sickle Cell Disease: No Hx Seizures: No Hx Asthma: No Hx HIV: No Additional medical history: PE-on eliquis ,heart murmur, Blood clots. eclampsia. pericarditis - Surgical History Past Surgical History?: Yes Additional Surgical History: TUBAL LIGATION - Social History Smoking Status: Never Smoker Substance Use Type: None - Medications Home Medications: Home Medications Medication Instructions Recorded Confirmed Last Taken Type Ibuprofen [Motrin 800 MG tab] 800 mg PO Q8HR PRN #20 tablet 09/28/15 03/26/21 Un known Rx Ibuprofen [Motrin] 800 mg PO Q8HR PRN #15 tablet 03/23/16 03/26/21 Unknown Rx Ibuprofen [Motrin] 600 mg PO Q8H PRN #24 tablet 03/23/19 03/26/21 Unknown Rx Lidocaine Viscous 2% 10 ml MM DAILY PRN #120 udc 12/20/20 03/26/21 Unknown Rx Apixaban [Eliquis starter pack] 5 mg PO BID #60 tab.ds.pk 01/04/21 03/26/21 Unknown Rx Metoclopramide [Reglan] 10 mg PO ACHS #120 tablet 01/12/21 03/26/21 Unknown Rx traMADoL [Ultram] 50 mg PO Q6HR PRN #10 tablet 02/22/21 03/26/21 Unknown Rx Acetaminophen [Acetaminophen 8 650 mg PO Q8H PRN #12 tablet.er 04/01/21 Unknown Rx Hour] Cyclobenzaprine [Flexeril] 10 mg PO QHS PRN #10 tablet 04/01/21 Unknown Rx Dicyclomine [Bentyl] 20 mg PO Q6H PRN #24 tablet 04/23/21 Unknown Rx Famotidine [Pepcid] 20 mg PO BID #30 tablet 04/23/21 Unknown Rx Ondansetron [Zofran Odt] 4 mg PO Q8HR PRN #15 tab.rapdis 04/23/21 Unknown Rx Naproxen 500 mg PO Q12H PRN #24 tab 05/25/21 Unknown Rx Acetaminophen/Codeine [Tylenol 1 tab PO Q8H PRN #9 tab 06/18/21 Unknown Rx /Codeine # 3 tab] ED Physical Exam - General Limitations: No Limitations General appearance: alert, in no apparent distress - Head Head exam: Present: normocephalic, normal inspection - Eye Eye exam: Present: normal appearance, EOMI Pupils: Present: normal accommodation - ENT ENT exam: Present: mucous membranes moist - Neck Neck exam: Present: normal inspection, full ROM. Absent: tenderness, lymphadenopathy, thyromegaly - Respiratory Respiratory exam: Present: normal lung sounds bilaterally, chest wall tenderness (left lateral chest wall tenderness to deep palpation, no crepitus, no stepoff, no echymosis, no deformity, ). Absent: respiratory distress, wheezes, rales, rhonchi, stridor, prolonged expiratory - Cardiovascular Cardiovascular Exam: Present: regular rate, normal rhythm, normal heart sounds. Absent: systolic murmur, diastolic murmur, rubs, gallop, clicks - GI/Abdominal GI/Abdominal exam: Present: soft, normal bowel sounds. Absent: distended, tende rness, bruit, hernia - Rectal Rectal exam: Present: deferred - Extremities Exam Extremities exam: Present: normal inspection, full ROM, normal capillary refill. Absent: tenderness - Back Exam Back exam: Present: normal inspection, full ROM. Absent: CVA tenderness (R), CVA tenderness (L) - Neurological Exam Neurological exam: Present: alert, oriented X3, CN II-XII intact, normal gait - Psychiatric Psychiatric exam: Present: normal affect, normal mood - Skin Skin exam: Present: warm, dry, intact, normal color. Absent: rash ED Course Vital Signs 06/18/21 06/18/21 20:41 22:21 Temperature 98.4 F Pulse Rate 91 H Respiratory 16 16 Rate Blood Pressure 146/84 [Right] O2 Sat by Pulse 100 Oximetry ED Medical Decision Making - EKG Data EKG shows normal: sinus rhythm, axis, intervals, QRS complexes, ST-T waves Rate: normal - EKG Data When compared to previous EKG there are: previous EKG unavailable Interpretation: normal EKG (NSR no STEMI, interp by ED Attending ) - Radiology Data Radiology results: report reviewed, image reviewed XR ribs UNI w PA chest 3+V LT INDICATION: rib pain left. COMPARISON: No relevant prior imaging study available. FINDINGS: No acute skeletal abnormality. No acute pulmonary or pleural findings. IMPRESSION: 1. No acute findings. Signer Name: Roni Wise MD Signed: 06/18/2021 10:28 PM Workstation Name: [id number] Transcribed By: BRYSON Dictated By: Roni Wise MD Electronically Authenticated By: Roni Wise MD Signed Date/Time: 06/18/212227 DD/ 26 TD/TT: - Medical Decision Making Chest x-ray is normal no infiltrates no opacities. EKG is normal sinus rhythm no ST elevated AR, EKG interpreted by ED attending. This chest pain is reproducible to palpation. There is no crepitus no ecchymosis no step-off. Patient denies shortness of breath there is no dizziness no nausea no vomiting. hCG is negative. There is no fevers no chills no dysuria no flank pain no history of renal stones. This is likely chest wall pain. Plan continue medications as prescribed, Tylenol as needed breakthrough pain. Follow-up with primary care doctor in 2 days as scheduled. Return to emergency department should symptoms worsen. Patient verbalized agreement and understanding with discharge plan. Patient DC'd home in stable condition at this time. Critical care attestation.: If time is entered above; I have spent that time in minutes in the direct care of this critically ill patient, excluding procedure time. ED Disposition Clinical Impression: Chest wall pain Disposition: 01 HOME / SELF CARE / HOMELESS Is pt being admited?: No Condition: Stable Instructions: Nonspecific Chest Pain, Adult, Chest Wall Pain, [id number] Additional Instructions: Take all medications as prescribed, follow-up with your doctor in 2 to 3 days as scheduled. Return to emergency department should symptoms worsen. Prescriptions: Acetaminophen/Codeine [Tylenol /Codeine # 3 tab] 1 tab PO Q8H PRN #9 tab PRN Reason: pain Referrals: NOA FORTE MD [Primary Care Provider] - 3-5 Days Forms: Work/School Release Form(ED) Time of Disposition: 23:59
--- NOTE | 2021-06-18 22:37 | XRay Report ---
CHEST PA AND LATERAL VIEWS INDICATION: chest pain. COMPARISON: To 522 FINDINGS: Support devices: None. Heart: Within normal limits. Lungs/Pleura: No acute pulmonary or pleural findings. IMPRESSION: 1. No acute findings. Signer Name: Roni Wise MD Signed: 06/18/2021 10:32 PM Workstation Name: [id number]
[2021-06-18 23:04] LABS: HCG Qualitative,Urine Negative (Negative)
--- NOTE | 2021-06-19 13:26 | Electrocardiograph Report ---
[facility] Test Date: 2021-06-18 Test Time: 20:50:28 Pat Name: VIANNEY YAÑEZ Department: Room: Gender: F [place]: [id number] : 1990 Requested By: ELLIOTT COATES Order Number: [id number] Reading MD: Edilia Richardson Measurements Intervals [place] Rate: 79 P: 72 MT: 182 QRS: 65 QRSD: 80 T: 74 QT: 361 QTc: 414 Interpretive Statements Sinus rhythm Compared to ECG 05/24/2021 17:15:29 No significant changes Electronically Signed On 06-19-2021 13:26:44 EST by Edilia Richardson
== END 2021-06-19 00:14 | disposition home or self-care (01) ==
LOC: ED 20:14
DX: R07.89 Other chest pain (principal); I10 Essential (primary) hypertension
CPT/HCPCS: 71046; 81025; 93005; 93010; 99283; 99284

== ENCOUNTER 2021-07-04 10:04 | Emergency (ER) | payer BC, OTHER ==
[2021-07-04 10:23] VITALS: BP 144/79
[2021-07-04 12:51] LABS: Bacteria,Urine 1+ /HPF (Negative); Bilirubin,Urine NEG (Negative); Blood,Urine NEG (Negative); Color,Urine Yellow (Yellow); Mucus,Urine 3+ /HPF; Protein,Urine <15 mg/dL mg/dL (Negative); Urobilinogen,Urine < 2.0 mg/dL (<2.0)
[2021-07-04 13:15] LABS: HCG Qualitative,Urine Negative (Negative)
--- NOTE | 2021-07-04 13:27 | Emergency Department Report ---
ED Abdominal Pain HPI - General Chief Complaint: Abdominal Pain Stated Complaint: STOMACH PAIN/SORE THROAT Time Seen by Provider: 07/04/21 10:46 Source: patient Mode of arrival: Ambulatory Limitations: No Limitations - History of Present Illness Initial Comments: 30-year-old black female presents to the emergency department for evaluation of cough, congestion, and sore throat for few days. She also complains of intermittent lower abdominal pain for the last 1-1/2 weeks. She denies fever, discharge, dysuria, states that she has had a headache. MD Complaint: abdominal pain -: Gradual, week(s) (1.5) Location: LUQ, RUQ Radiation: none Migration to: no migration Severity: mild Severity scale (0 -10): 2 Quality: aching Consistency: intermittent Associated Symptoms: denies: nausea, vomiting, diarrhea, fever, chills, constipation, dysuria, hematemesis, hematochezia, melena, hematuria, anorexia, syncope - Related Data Previous Rx's Medication Instructions Recorded Last Taken Type Ibuprofen [Motrin 800 MG tab] 800 mg PO Q8HR PRN #20 tablet 09/28/15 Unknown Rx Ibuprofen [Motrin] 800 mg PO Q8HR PRN #15 tablet 03/23/16 Unknown Rx Ibuprofen [Motrin] 600 mg PO Q8H PRN #24 tablet 03/23/19 Unknown Rx Lidocaine Viscous 2% 10 ml MM DAILY PRN #120 udc 12/20/20 Unknown Rx Apixaban [Eliquis starter pack] 5 mg PO BID #60 tab.ds.pk 01/04/21 Unknown Rx Metoclopramide [Reglan] 10 mg PO ACHS #120 tablet 01/12/21 Unknown Rx traMADoL [Ultram] 50 mg PO Q6HR PRN #10 tablet 02/22/21 Unknown Rx Acetaminophen [Acetaminophen 8 650 mg PO Q8H PRN #12 tablet.er 04/01/21 Unknown Rx Hour] Cyclobenzaprine [Flexeril] 10 mg PO QHS PRN #10 tablet 04/01/21 Unknown Rx Dicyclomine [Bentyl] 20 mg PO Q6H PRN #24 tablet 04/23/21 Unknown Rx Famotidine [Pepcid] 20 mg PO BID #30 tablet 04/23/21 Unknown Rx Ondansetron [Zofran Odt] 4 mg PO Q8HR PRN #15 tab.rapdis 04/23/21 Unknown Rx Naproxen 500 mg PO Q12H PRN #24 tab 05/25/21 Unknown Rx Acetaminophen/Codeine [Tylenol 1 tab PO Q8H PRN #9 tab 06/18/21 Unknown Rx /Codeine # 3 tab] methylPREDNISolone [Medrol 4MG 4 mg PO DAILY #1 pack 07/04/21 Unknown Rx DOSEPAK (21 tabs)] Allergies Allergy/AdvReac Type Severity Reaction Status Date / Time No Known Allergies Allergy Verified 05/24/21 17:17 ED Review of Systems ROS: Stated complaint: STOMACH PAIN/SORE THROAT Other details as noted in HPI Comment: All other systems reviewed and negative Constitutional: denies: chills, diaphoresis, fever, malaise, weakness Eyes: denies: eye pain, eye discharge, vision change ENT: throat pain, congestion. denies: ear pain, dental pain, hearing loss, epistaxis Respiratory: cough. denies: orthopnea, shortness of breath, SOB with exertion, SOB at rest Cardiovascular: denies: chest pain, palpitations, dyspnea on exertion, orthopnea, edema Endocrine: no symptoms reported Gastrointestinal: denies: abdominal pain, nausea, vomiting, diarrhea, constipation, hematemesis, melena, hematochezia Genitourinary: denies: urgency, dysuria, frequency, hematuria, discharge, abnormal menses, dyspareunia Musculoskeletal: denies: back pain Skin: denies: rash, lesions Neurological: headache. denies: weakness, numbness, paresthesias, abnormal gait Psychiatric: denies: anxiety, depression Hematological/Lymphatic: denies: easy bleeding, easy bruising ED Past Medical Hx - Past Medical History Hx Hypertension: Yes (with eclampsia) Hx Diabetes: No Hx Deep Vein Thrombosis: No Hx Pulmonary Embolism: Yes Hx Renal Disease: No Hx Sickle Cell Disease: No Hx Seizures: No Hx Asthma: No Hx HIV: No Additional medical history: PE-on eliquis ,heart murmur, Blood clots. eclampsia. pericarditis - Surgical History Additional Surgical History: TUBAL LIGATION - Social History Smoking Status: Never Smoker Substance Use Type: None - Medications Home Medications: Home Medications Medication Instructions Recorded Confirmed Last Taken Type Ibuprofen [Motrin 800 MG tab] 800 mg PO Q8HR PRN #20 tablet 09/28/15 03/26/21 Unknown Rx Ibuprofen [Motrin] 800 mg PO Q8HR PRN #15 tablet 03/23/16 03/26/21 Unknown Rx Ibuprofen [Motrin] 600 mg PO Q8H PRN #24 tablet 03/23/19 03/26/21 Unknown Rx Lidocaine Viscous 2% 10 ml MM DAILY PRN #120 udc 12/20/20 03/26/21 Unknown Rx Apixaban [Eliquis starter pack] 5 mg PO BID #60 tab.ds.pk 01/04/21 03/26/21 Unknown Rx Metoclopramide [Reglan] 10 mg PO ACHS #120 tablet 01/12/21 03/26/21 Unknown Rx traMADoL [Ultram] 50 mg PO Q6HR PRN #10 tablet 02/22/21 03/26/21 Unknown Rx Acetaminophen [Acetaminophen 8 650 mg PO Q8H PRN #12 tablet.er 04/01/21 Unknown Rx Hour] Cyclobenzaprine [Flexeril] 10 mg PO QHS PRN #10 tablet 04/01/21 Unknown Rx Dicyclomine [Bentyl] 20 mg PO Q6H PRN #24 tablet 04/23/21 Unknown Rx Famotidine [Pepcid] 20 mg PO BID #30 tablet 04/23/21 Unknown Rx Ondansetron [Zofran Odt] 4 mg PO Q8HR PRN #15 tab.rapdis 04/23/21 Unknown Rx Naproxen 500 mg PO Q12H PRN #24 tab 05/25/21 Unknown Rx Acetaminophen/Codeine [Tylenol 1 tab PO Q8H PRN #9 tab 06/18/21 Unknown Rx /Codeine # 3 tab] methylPREDNISolone [Medrol 4MG 4 mg PO DAILY #1 pack 07/04/21 Unknown Rx DOSEPAK (21 tabs)] ED Physical Exam - General Limitations: No Limitations General appearance: alert, in no apparent distress - Head Head exam: Present: atraumatic, normocephalic - Eye Eye exam: Present: normal appearance. Absent: conjunctival injection - ENT ENT exam: Present: mucous membranes moist, normal external ear exam. Absent: normal exam (Bilateral nasal mucosal edema along with bilateral turbinate edema with clear drainage noted), normal orophraynx (Erythema to posterior oropharynx) - Neck Neck exam: Present: normal inspection. Absent: tenderness, lymphadenopathy - Respiratory Respiratory exam: Present: normal lung sounds bilaterally. Absent: respiratory distress, wheezes, rales, rhonchi, stridor, chest wall tenderness, accessory muscle use - Cardiovascular Cardiovascular Exam: Present: regular rate, normal heart sounds - GI/Abdominal GI/Abdominal exam: Present: soft, normal bowel sounds. Absent: distended, tenderness, guarding, rebound, rigid - Extremities Exam Extremities exam: Present: normal inspection - Back Exam Back exam: Present: normal inspection, full ROM. Absent: tenderness, CVA tenderness (R), CVA tenderness (L), vertebral tenderness - Neurological Exam Neurological exam: Present: alert, oriented X3 - Psychiatric Psychiatric exam: Present: normal affect, normal mood - Skin Skin exam: Present: warm, dry, intact, normal color ED Course Vital Signs 07/04/21 10:19 Temperature 98.6 F Pulse Rate 85 Respiratory 16 Rate Blood Pressure 144/79 [Left] O2 Sat by Pulse 98 Oximetry ED Medical Decision Making - Medical Decision Making 30-year-old black female presents to the emergency department for evaluation of cough, congestion, and sore throat for few days. She also complains of intermittent lower abdominal pain for the last 1-1/2 weeks. She denies fever, discharge, dysuria, states that she has had a headache. UA negative for urinary tract infection. Patient without tenderness on exam, and she denies abdominal pain at this time, so low suspicion for acute abdomen. Patient noted to have signs of sinusitis on exam. She will be treated for sinusitis with Medrol Dosepak and advised to follow-up with primary care provider for further evaluation of or if no improvement. She verbalized understanding of and agreement with plan of care. Critical care attestation.: If time is entered above; I have spent that time in minutes in the direct care of this critically ill patient, excluding procedure time. ED Disposition Clinical Impression: Sinusitis Qualifiers: Sinusitis location: frontal Chronicity: acute Recurrence: non-recurrent Qualified Code(s): J01.10 - Acute frontal sinusitis, unspecified Abdominal pain Qualifiers: Abdominal location: lower abdomen, unspecified Qualified Code(s): R10.30 - Lower abdominal pain, unspecified Disposition: HOME / SELF CARE / HOMELESS Is pt being admited?: No Does the pt Need Aspirin: No Condition: Stable Instructions: Sinusitis, Adult, Tuvw-[id number], Abdominal Pain, Adult, [id number], Abdominal Pain (ED) Additional Instructions: Take medications as prescribed. Follow-up with primary care provider for further evaluation. Return to the emergency department for any concerning symptoms. Prescriptions: methylPREDNISolone [Medrol 4MG DOSEPAK (21 tabs)] 4 mg PO DAILY #1 pack Referrals: PRIMARY CARE, [Primary Care Provider] - 3-5 Days Forms: Work/School Release Form(ED) Time of Disposition: 13:27 ED ENT EXAM - General Limitations: No Limitations ED ENT HPI - General Chief complaint: Abdominal Pain Stated complaint: STOMACH PAIN/SORE THROAT Time Seen by Provider: 07/04/21 10:46 Source: patient Mode of arrival: Ambulatory Limitations: No Limitations - History of Present Illness complaint: sore throat -: Gradual, days(s) (3-4) Location: throat Severity: mild Severity scale (0 -10): 3 Quality: burning, aching Consistency: intermittent Associated Symptoms: cough, pain with swallowing, sore throat, rhinorrhea. denies: fever, gum swelling, toothache, tinnitus, hearing loss, discharge from ear - Related Data Previous Rx's Medication Instructions Recorded Last Taken Type Ibuprofen [Motrin 800 MG tab] 800 mg PO Q8HR PRN #20 tablet 09/28/15 Unknown Rx Ibuprofen [Motrin] 800 mg PO Q8HR PRN #15 tablet 03/23/16 Unknown Rx Ibuprofen [Motrin] 600 mg PO Q8H PRN #24 tablet 03/23/19 Unknown Rx Lidocaine Viscous 2% 10 ml MM DAILY PRN #120 udc 12/20/20 Unknown Rx Apixaban [Eliquis starter pack] 5 mg PO BID #60 tab.ds.pk 01/04/21 Unknown Rx Metoclopramide [Reglan] 10 mg PO ACHS #120 tablet 01/12/21 Unknown Rx traMADoL [Ultram] 50 mg PO Q6HR PRN #10 tablet 02/22/21 Unknown Rx Acetaminophen [Acetaminophen 8 650 mg PO Q8H PRN #12 tablet.er 04/01/21 Unknown Rx Hour] Cyclobenzaprine [Flexeril] 10 mg PO QHS PRN #10 tablet 04/01/21 Unknown Rx Dicyclomine [Bentyl] 20 mg PO Q6H PRN #24 tablet 04/23/21 Unknown Rx Famotidine [Pepcid] 20 mg PO BID #30 tablet 04/23/21 Unknown Rx Ondansetron [Zofran Odt] 4 mg PO Q8HR PRN #15 tab.rapdis 04/23/21 Unknown Rx Naproxen 500 mg PO Q12H PRN #24 tab 05/25/21 Unknown Rx Acetaminophen/Codeine [Tylenol 1 tab PO Q8H PRN #9 tab 06/18/21 Unknown Rx /Codeine # 3 tab] methylPREDNISolone [Medrol 4MG 4 mg PO DAILY #1 pack 07/04/21 Unknown Rx DOSEPAK (21 tabs)] Allergies Allergy/AdvReac Type Severity Reaction Status Date / Time No Known Allergies Allergy Verified 05/24/21 17:17
== END 2021-07-04 14:06 | disposition home or self-care (01) ==
LOC: ED 10:04
DX: J32.9 Chronic sinusitis, unspecified (principal); R10.30 Lower abdominal pain, unspecified; I10 Essential (primary) hypertension
CPT/HCPCS: 81001; 81025; 99283

== ENCOUNTER 2021-07-07 23:47 | Emergency (ER) | payer BC, OTHER ==
[2021-07-07 23:53] VITALS: BP 134/77
== END 2021-07-08 07:00 | disposition left against medical advice (07) ==
LOC: ED 23:47
DX: J02.9 Acute pharyngitis, unspecified (principal); Z53.21 Procedure and treatment not carried out due to patient leaving prior to being seen by health care provider

== ENCOUNTER 2021-07-10 22:36 | Emergency (ER) | payer BC, OTHER ==
[2021-07-10 22:58] VITALS: BP 137/83
== END 2021-07-11 05:15 | disposition left against medical advice (07) ==
LOC: ED 22:36
DX: R07.0 Pain in throat (principal); Z53.21 Procedure and treatment not carried out due to patient leaving prior to being seen by health care provider

== ENCOUNTER 2021-07-28 22:52 | Emergency (ER) | payer BC, OTHER | END 2021-07-29 01:41 | disposition left against medical advice (07) | LOC: ED 22:52 | DX: R11.0 Nausea (principal); Z53.21 Procedure and treatment not carried out due to patient leaving prior to being seen by health care provider ==

== ENCOUNTER 2021-08-01 00:03 | Emergency (ER) | payer BC, OTHER ==
[2021-08-01 00:49] VITALS: BP 124/75
== END 2021-08-01 04:10 | disposition left against medical advice (07) ==
LOC: ED 00:03
DX: R05.9 Cough, unspecified (principal); R07.89 Other chest pain; Z53.21 Procedure and treatment not carried out due to patient leaving prior to being seen by health care provider

== ENCOUNTER 2021-08-02 00:07 | Emergency (ER) | payer BC, OTHER ==
[2021-08-02 03:00] VITALS: BP 118/76
--- NOTE | 2021-08-04 14:07 | Electrocardiograph Report ---
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
== END 2021-08-02 08:49 | disposition left against medical advice (07) ==
LOC: ED 00:07
DX: R05.9 Cough, unspecified (principal); R07.89 Other chest pain; Z53.21 Procedure and treatment not carried out due to patient leaving prior to being seen by health care provider
CPT/HCPCS: 93005

== ENCOUNTER 2021-08-02 13:01 | Emergency (ER) | payer BC, OTHER | END 2021-08-02 16:36 | disposition home or self-care (01) | LOC: ED 13:01 | DX: R07.9 Chest pain, unspecified (principal); Z53.21 Procedure and treatment not carried out due to patient leaving prior to being seen by health care provider ==

== ENCOUNTER 2021-09-04 13:58 | Emergency (ER) | payer BC, OTHER | END 2021-09-04 14:00 | disposition left against medical advice (07) | LOC: ED 13:58 | DX: R07.89 Other chest pain (principal); Z53.21 Procedure and treatment not carried out due to patient leaving prior to being seen by health care provider ==

== ENCOUNTER 2021-09-07 21:18 | Emergency (ER) | payer BC, OTHER ==
[2021-09-07 21:57] VITALS: BP 116/64
--- NOTE | 2021-09-07 22:36 | XRay Report ---
CHEST 2 VIEWS INDICATION / CLINICAL INFORMATION: CHEST PAIN. COMPARISON: 07/24/2021 FINDINGS: SUPPORT DEVICES: None. HEART / MEDIASTINUM: No significant abnormality. LUNGS / PLEURA: No significant pulmonary or pleural abnormality. No pneumothorax. ADDITIONAL FINDINGS: No significant additional findings. IMPRESSION: 1. No acute findings. No interval change. Signer Name: Allie Perez MD Signed: 09/07/2021 10:31 PM Workstation Name: [id number]
[2021-09-07 23:01] LABS: Hematocrit 31.4 % (30.3-42.9); Hemoglobin 10.1 gm/dl (10.1-14.3); Mean Corpuscular HGB Conc 32 % (30-34); Mean Corpuscular Volume 80 fl (79-97); Platelet Count 208 K/mm3 (140-440)
[2021-09-07 23:04] LABS: Red Cell Distribution Width 20.8 % (13.2-15.2)
[2021-09-07 23:33] LABS: Alanine Aminotransferase 9 units/L (7-56); Albumin 4.4 g/dL (3.9-5); Blood Urea Nitrogen 11 mg/dL (7-17); Calcium 9.3 mg/dL (8.4-10.2); Hemolysis Index 9
[2021-09-07 23:34] LABS: BUN/Creatinine Ratio 18
[2021-09-08 01:34] LABS: Anisocytosis 1+; Basophils % (Manual) 0 % (0.0-1.8); Hypochromasia 1+; Platelet Estimate Consistent w Auto; Total Cells Counted 100
--- NOTE | 2021-09-08 08:58 | Electrocardiograph Report ---
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
== END 2021-09-09 02:34 | disposition left against medical advice (07) ==
LOC: ED 21:18
DX: R06.02 Shortness of breath (principal); R07.9 Chest pain, unspecified; Z53.21 Procedure and treatment not carried out due to patient leaving prior to being seen by health care provider
CPT/HCPCS: 36415; 71046; 80053; 84484; 85007; 85025; 93005

== ENCOUNTER 2021-10-26 19:20 | Emergency (ER) | payer BC, OTHER ==
--- NOTE | 2021-10-26 21:00 | XRay Report ---
CHEST 2 VIEWS INDICATION / CLINICAL INFORMATION: CHEST PAIN. COMPARISON: 09/07/2021 FINDINGS: SUPPORT DEVICES: None. HEART / MEDIASTINUM: No significant abnormality. LUNGS / PLEURA: No significant pulmonary or pleural abnormality. No pneumothorax. ADDITIONAL FINDINGS: No significant additional findings. IMPRESSION: 1. No acute findings. Signer Name: Norberto Westfall MD Signed: 10/26/2021 8:56 PM Workstation Name: [id number]
[2021-10-27] MEDS ORDERED: CLINDAMYCIN 300 MG CAP PO ONE (01:49)
[2021-10-27 02:18] LABS: Basophils % (Auto) 0.4 % (0.0-1.8); Eosinophils # (Auto) 0.1 K/mm3 (0.0-0.4); Eosinophils % (Auto) 1.6 % (0.0-4.3); Hematocrit 34.9 % (30.3-42.9); Hemoglobin 11.3 gm/dl (10.1-14.3); Lymphocytes # (Auto) 2.9 K/mm3 (1.2-5.4); Lymphocytes % (Auto) 44.5 % (13.4-35.0); Mean Corpuscular HGB Conc 32 % (30-34); Mean Corpuscular Volume 84 fl (79-97); Monocytes # (Auto) 0.3 K/mm3 (0.0-0.8); Monocytes % (Auto) 5.2 % (0.0-7.3); Platelet Count 218 K/mm3 (140-440); Red Blood Count 4.15 M/mm3 (3.65-5.03); Red Cell Distribution Width 15.9 % (13.2-15.2)
[2021-10-27 02:35] LABS: Alanine Aminotransferase 9 units/L (7-56); Albumin 4.3 g/dL (3.9-5); Blood Urea Nitrogen 9 mg/dL (7-17); Calcium 9.5 mg/dL (8.4-10.2); Hemolysis Index 5
[2021-10-27 02:36] LABS: BUN/Creatinine Ratio 15
--- NOTE | 2021-10-27 04:16 | Emergency Department Report ---
ED General Adult HPI - General Chief complaint: Chest Pain Stated complaint: CHEST PAIN,SOB/FEEL BAD Source: patient Mode of arrival: Ambulatory Limitations: No Limitations - History of Present Illness Initial comments: Patient is a 31-year-old -[place] female with a history of anxiety who presents to the ED with complaint of acute onset persistent chest pain, shortness of breath and palpitations for 2 days intermittently. Patient also complains of persistent painful multiple dental caries and swollen gums diffusely for the last 1 week. Patient also complains of right sided postauricular lymph node pain. Patient denies dizziness, syncope, nausea and vomiting, lightheadedness, headache, sore throat, traumatic injury, nasal and sinus congestion, abdominal pain, diarrhea, dysuria, urinary frequency and urgency or cough. MD Complaint: Diffuse chest pain, dyspnea, palpitations and bilateral maxillary toothache -: Gradual, days(s) (2), week(s) (1) Location: mouth, chest Severity scale (0 -10): 7 Quality: aching, sharp Consistency: constant Improves with: none Worsens with: none Associated Symptoms: denies other symptoms, chest pain (diffuse), malaise, shortness of breath. denies: confusion, cough, diaphoresis, fever/chills, heada ches, loss of appetite, nausea/vomiting, rash, seizure, syncope, weakness Treatments Prior to Arrival: none, other (dental pain and gum swelling) - Related Data Previous Rx's Medication Instructions Recorded Last Taken Type Ibuprofen [Motrin 800 MG tab] 800 mg PO Q8HR PRN #20 tablet 09/28/15 Unknown Rx Ibuprofen [Motrin] 800 mg PO Q8HR PRN #15 tablet 03/23/16 Unknown Rx Lidocaine Viscous 2% 10 ml MM DAILY PRN #120 udc 12/20/20 Unknown Rx Apixaban [Eliquis starter pack] 5 mg PO BID #60 tab.ds.pk 01/04/21 Unknown Rx Metoclopramide [Reglan] 10 mg PO ACHS #120 tablet 01/12/21 Unknown Rx Acetaminophen [Acetaminophen 8 650 mg PO Q8H PRN #12 tablet.er 04/01/21 Unknown Rx Hour] Cyclobenzaprine [Flexeril] 10 mg PO QHS PRN #10 tablet 04/01/21 Unknown Rx Dicyclomine [Bentyl] 20 mg PO Q6H PRN #24 tablet 04/23/21 Unknown Rx Famotidine [Pepcid] 20 mg PO BID #30 tablet 04/23/21 Unknown Rx Ondansetron [Zofran Odt] 4 mg PO Q8HR PRN #15 tab.rapdis 04/23/21 Unknown Rx Naproxen 500 mg PO Q12H PRN #24 tab 05/25/21 Unknown Rx Acetaminophen/Codeine [Tylenol 1 tab PO Q8H PRN #9 tab 06/18/21 Unknown Rx /Codeine # 3 tab] methylPREDNISolone [Medrol 4MG 4 mg PO DAILY #1 pack 07/04/21 Unknown Rx DOSEPAK (21 tabs)] Amoxicillin [Trimox CAP] 500 mg PO Q8H 7 Days #21 capsule 07/24/21 Unknown Rx Ibuprofen [Motrin 800 MG tab] 800 mg PO Q8HR PRN #30 tablet 07/24/21 Unknown Rx predniSONE [Deltasone] 20 mg PO QDAY 5 Days #5 tab 07/24/21 Unknown Rx Clindamycin [Clindamycin CAP] 300 mg PO Q8H #30 cap 10/27/21 Unknown Rx Ibuprofen [Motrin 600 MG tab] 600 mg PO Q8H PRN #30 tablet 10/27/21 Unknown Rx traMADoL [Ultram 50 MG tab] 50 mg PO Q6HR PRN #10 tablet 10/27/21 Unknown Rx Allergies Allergy/AdvReac Type Severity Reaction Status Date / Time No Known Allergies Allergy Verified 05/24/21 17:17 ED Review of Systems ROS: Stated complaint: CHEST PAIN,SOB/FEEL BAD Other details as noted in HPI Constitutional: denies: chills, fever Eyes: denies: eye pain, eye discharge, vision change ENT: dental pain (multiple dental caries with premolar and molar toothaches, swollen gums). denies: ear pain, throat pain Respiratory: denies: cough, shortness of breath, wheezing Cardiovascular: denies: chest pain, palpitations, edema, syncope, paroxysmal nocturnal dyspnea Endocrine: no symptoms reported Gastrointestinal: denies: abdominal pain, nausea, vomiting, diarrhea Genitourinary: denies: urgency, dysuria, discharge Musculoskeletal: denies: back pain, joint swelling, arthralgia Skin: denies: rash, lesions Neurological: denies: headache, weakness, paresthesias Psychiatric: denies: anxiety, depression Hematological/Lymphatic: denies: easy bleeding, easy bruising ED Past Medical Hx - Past Medical History Hx Hypertension: Yes (with eclampsia) Hx Diabetes: No Hx Deep Vein Thrombosis: No Hx Pulmonary Embolism: Yes Hx Renal Disease: No Hx Sickle Cell Disease: No Hx Seizures: No Hx Asthma: No Hx HIV: No Additional medical history: PE-on eliquis ,heart murmur, Blood clots. eclampsia. pericarditis - Surgical History Additional Surgical History: TUBAL LIGATION - Social History Smoking Status: Unknown if ever smoked Substance Use Type: None - Medications Home Medications: Home Medications Medication Instructions Recorded Confirmed Last Taken Type Ibuprofen [Motrin 800 MG tab] 800 mg PO Q8HR PRN #20 tablet 09/28/15 03/26/21 U nknown Rx Ibuprofen [Motrin] 800 mg PO Q8HR PRN #15 tablet 03/23/16 03/26/21 Unknown Rx Lidocaine Viscous 2% 10 ml MM DAILY PRN #120 udc 12/20/20 03/26/21 Unknown Rx Apixaban [Eliquis starter pack] 5 mg PO BID #60 tab.ds.pk 01/04/21 03/26/21 Unknown Rx Metoclopramide [Reglan] 10 mg PO ACHS #120 tablet 01/12/21 03/26/21 Unknown Rx Acetaminophen [Acetaminophen 8 650 mg PO Q8H PRN #12 tablet.er 04/01/21 Unknown Rx Hour] Cyclobenzaprine [Flexeril] 10 mg PO QHS PRN #10 tablet 04/01/21 Unknown Rx Dicyclomine [Bentyl] 20 mg PO Q6H PRN #24 tablet 04/23/21 Unknown Rx Famotidine [Pepcid] 20 mg PO BID #30 tablet 04/23/21 Unknown Rx Ondansetron [Zofran Odt] 4 mg PO Q8HR PRN #15 tab.rapdis 04/23/21 Unknown Rx Naproxen 500 mg PO Q12H PRN #24 tab 05/25/21 Unknown Rx Acetaminophen/Codeine [Tylenol 1 tab PO Q8H PRN #9 tab 06/18/21 Unknown Rx /Codeine # 3 tab] methylPREDNISolone [Medrol 4MG 4 mg PO DAILY #1 pack 07/04/21 Unknown Rx DOSEPAK (21 tabs)] Amoxicillin [Trimox CAP] 500 mg PO Q8H 7 Days #21 capsule 07/24/21 Unknown Rx Ibuprofen [Motrin 800 MG tab] 800 mg PO Q8HR PRN #30 tablet 07/24/21 Unknown Rx predniSONE [Deltasone] 20 mg PO QDAY 5 Days #5 tab 07/24/21 Unknown Rx Clindamycin [Clindamycin CAP] 300 mg PO Q8H #30 cap 10/27/21 Unknown Rx Ibuprofen [Motrin 600 MG tab] 600 mg PO Q8H PRN #30 tablet 10/27/21 Unknown Rx traMADoL [Ultram 50 MG tab] 50 mg PO Q6HR PRN #10 tablet 10/27/21 Unknown Rx ED Physical Exam - General Limitations: No Limitations General appearance: alert, in no apparent distress - Head Head exam: Present: atraumatic, normocephalic, normal inspection - Eye Eye exam: Present: normal appearance, PERRL, EOMI Pupils: Present: normal accommodation - ENT ENT exam: Present: mucous membranes moist, TM's normal bilaterally, normal external ear exam, other (multiple dental caries, swollen tender gums and premolar and molar tooth tenderness) - Neck Neck exam: Present: normal inspection, full ROM. Absent: tenderness, meningismus, lymphadenopathy, thyromegaly - Respiratory Respiratory exam: Present: normal lung sounds bilaterally. Absent: respiratory distress, wheezes, rales, rhonchi, stridor, chest wall tenderness, accessory muscle use, decreased breath sounds, prolonged expiratory - Cardiovascular Cardiovascular Exam: Present: regular rate, normal rhythm, normal heart sounds. Absent: systolic murmur, diastolic murmur, rubs, gallop - GI/Abdominal GI/Abdominal exam: Present: soft, normal bowel sounds. Absent: tenderness, guarding, rebound, hyperactive bowel sounds, hypoactive bowel sounds, organomeg jr - Extremities Exam Extremities exam: Present: normal inspection - Back Exam Back exam: Present: normal inspection - Neurological Exam Neurological exam: Present: alert, oriented X3 - Psychiatric Psychiatric exam: Present: normal affect, normal mood - Skin Skin exam: Present: warm, dry, intact, normal color. Absent: rash ED Course Vital Signs 10/26/21 10/26/21 20:11 20:15 Temperature 99 F Pulse Rate 101 H Respiratory 16 Rate Blood Pressure 132/80 O2 Sat by Pulse 98 Oximetry ED Medical Decision Making - Lab Data Result diagrams: 10/27/21 01:59 10/27/21 01:59 - EKG Data EKG shows normal: sinus rhythm Rate: normal - EKG Data Interpretation: normal EKG 10/27/21 04:25 EKG shows normal sinus rhythm with a ventricular rate of [address] or T wave abnormalities. - Radiology Data Radiology results: report reviewed, image reviewed [facility] [address] [place] [address] XRay Report Signed Patient: VIANNEY YAÑEZ MR#: [id number] : 1990 Acct:[id number] Age/Sex: 31 / F ADM Date: 10/26/21 Loc: ED Attending Dr: Ordering Physician: ALEXEY BOSS MD Date of Service: 10/26/21 Procedure(s): XR chest routine 2V Accession Number(s): [id number] cc: ED MD KARYN Fluoro Time In Minutes: CHEST 2 VIEWS INDICATION / CLINICAL INFORMATION: CHEST PAIN. COMPARISON: 09/07/2021 FINDINGS: SUPPORT DEVICES: None. HEART / MEDIASTINUM: No significant abnormality. LUNGS / PLEURA: No significant pulmonary or pleural abnormality. No pneumothorax. ADDITIONAL FINDINGS: No significant additional findings. IMPRESSION: 1. No acute findings. Signer Name: Norberto Blackman MD Signed: 10/26/2021 8:56 PM Workstation Name: [id number] Transcribed By: CW Dictated By: GRAY BLACKMAN MD Electronically Authenticated By: GRAY BLACKMAN MD Signed Date/Time: 10/26/212055 DD/ 55 TD/TT: - Medical Decision Making This is a 31-year-old -[place] female with a history of anxiety who presents to the ED with complaint of acute onset persistent chest pain, shortness of breath and palpitations for 2 days intermittently. Patient also complains of persistent painful multiple dental caries and swollen gums diffusely for the last 1 week. Patient also complains of right sided postauricular lymph node pain. In the ED, patient is alert and oriented x3 and is not in any distress. Chest x-ray showed no acute cardiopulmonary abnormalities or pneumonitis. Lab test results were reviewed and are all nonactionable. Patient was discharged home on medications for pain and antibiotics for dental abscess and gingivitis and was advised to follow-up with her dentist in 7 to 10 days for reevaluation. Patient was advised to return to the ED immediately if symptoms get worse. - Differential Diagnosis Anxiety; dental abscess; dental caries; gingivitis; ACS Critical care attestation.: If time is entered above; I have spent that time in minutes in the direct care of this critically ill patient, excluding procedure time. ED Disposition Clinical Impression: Anxiety as acute reaction to exceptional stress, Chronic gingivitis, Dental abscess, Acute nonspecific chest pain with low risk of coronary artery disease Disposition: 01 HOME / SELF CARE / HOMELESS Is pt being admited?: No Does the pt Need Aspirin: No Condition: Stable Instructions: Chest Pain (ED), Nonspecific Chest Pain, Adult, Ssbb-et-Eyej, Dental Abscess, [id number], Generalized Anxiety Disorder, Adult Additional Instructions: All lab test results were reviewed and are all nonactionable. Chest x-ray s howed no acute cardiopulmonary abnormalities or pneumonitis. Take medication with food, drink plenty of fluids and follow-up with your dentist in 7 to 10 days for reevaluation. Return to the ED immediately if symptoms get worse. Prescriptions: Clindamycin [Clindamycin CAP] 300 mg PO Q8H #30 cap Ibuprofen [Motrin 600 MG tab] 600 mg PO Q8H PRN #30 tablet PRN Reason: Pain traMADoL [Ultram 50 MG tab] 50 mg PO Q6HR PRN #10 tablet PRN Reason: Pain Referrals: [facility] [Provider Group] - 3-5 Days Forms: Work/School Release Form(ED) Time of Disposition: 04:17 Print Language: LUX[place]
[2021-10-27 04:44] VITALS: BP 131/91
--- NOTE | 2021-10-30 11:56 | Electrocardiograph Report ---
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
== END 2021-10-27 05:08 | disposition home or self-care (01) ==
LOC: ED 19:20
DX: R07.9 Chest pain, unspecified (principal); K05.10 Chronic gingivitis, plaque induced; K04.7 Periapical abscess without sinus; F41.1 Generalized anxiety disorder; F43.0 Acute stress reaction; I10 Essential (primary) hypertension; I26.99 Other pulmonary embolism without acute cor pulmonale; Z79.899 Other long term (current) drug therapy
CPT/HCPCS: 36415; 71046; 80053; 84484; 85025; 93005; 99284

== ENCOUNTER 2021-11-06 20:21 | Emergency (ER) | payer BC, OTHER ==
[2021-11-06 21:02] VITALS: BP 117/71
--- NOTE | 2021-11-07 14:10 | Electrocardiograph Report ---
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
== END 2021-11-07 04:00 | disposition left against medical advice (07) ==
LOC: ED 20:21
DX: R06.02 Shortness of breath (principal); Z53.21 Procedure and treatment not carried out due to patient leaving prior to being seen by health care provider; R07.9 Chest pain, unspecified
CPT/HCPCS: 93005